=== PATIENT | female | born 1930 | race Caucasian/White ===

== ENCOUNTER 2016-12-19 16:10 | Inpatient (IN) | payer OTHER ==
[~2016-12-19] VITALS: Ht 165.1 cm; Wt 105.3 kg
[~2016-12-19 16:10] MED LIST: CHOL100010 PO; CMD5 PO; ERGO1CAP35 PO; FERR1TAB13 PO; FRS/40 PO; LISIPOW PO; MAGN400T6 PO; POTA20TA11 PO; RANI150T3 PO
[2016-12-19] MEDS ORDERED: CEFTRIAXONE SOD INJ 1 GM ADDVIAL IV STA (16:40)
--- NOTE | 2016-12-19 16:57 | EMERGENCY ROOM VISIT NOTE ---
ED Visit Note First contact with patient: 16:19 I have seen and examined this patient with Mehreen Horton and generally agree with the treatment plan. Current/Historical Medications Scheduled Cholecalciferol (Vitamin D), 5,000 INTER.UNIT PO DAILY Ergocalciferol (Vitamin D Cap), 1 TAB PO MONTHLY Ferrous Sulfate (Kp Ferrous Sulfate), 1 TAB PO BID Furosemide (Lasix), 40 MG PO QD Magnesium Oxide (Mag-Ox), 0.5 TAB PO QD Metoprolol Tartrate (Lopressor) (Lopressor), 25 MG PO BID Nitroglycerin (Nitrostat), 0.4 MG UT UD Potassium Chloride Microencaps (Potassium Chloride Cr), 1 TAB PO BID Ranitidine Hcl (Zantac), 1 TAB PO BID Warfarin Sod (Coumadin *), 2.5 MG PO QPM Warfarin Sod (Jantoven), 5 MG PO DIRECTED [Lisinopril], 1 TAB PO QAM Allergies Coded Allergies: White Fish (Verified Allergy, Intermediate, ALLERGIC TO FISH, 08/10/15) Anesthetics, Halogenated (Unverified Allergy, Unknown, UNKNOWN, 08/10/15) INDICATED IT ISNT ALL TYPES. IT IS SODIUM PHENYL Dust (Verified Allergy, Unknown, 08/10/15) Egg (Verified Allergy, Unknown, 08/10/15) Iodinated Contrast Media (Verified Allergy, Unknown, `, 08/10/15) Iodine (Verified Allergy, Unknown, 08/10/15) POLLEN (Verified Allergy, Unknown, 08/10/15) Sulfa Drugs (Verified Allergy, Unknown, BOILS, STYES, 08/10/15) Thiopental (Verified Allergy, Unknown, 08/10/15) Trimethoprim (Verified Allergy, Unknown, 08/10/15) Wheat (Verified Allergy, Unknown, 08/10/15) Vital Signs Date Time Temp Pulse Resp B/P (MAP) Pulse Ox O2 Delivery O2 Flow Rate FiO2 12/19/16 16:45 91 12/19/16 16:16 36.7 91 22 151/83 96 Room Air Laboratory Results Test 12/19/16 16:35 12/19/16 16:40 Departure Information Referrals Constantino Munoz M.D. (PCP) Patient Instructions My [facility]
--- NOTE | 2016-12-19 17:09 | DIAGNOSTIC IMAGING REPORT ---
SINGLE VIEW CHEST CLINICAL HISTORY: Fever. FINDINGS: An AP, portable, upright chest radiograph is compared to study dated 11/16/2009 and correlated with chest CT dated 05/03/2010. The examination is degraded by portable technique, large body habitus, motion artifact, and patient rotation. The heart is enlarged and there is atherosclerotic calcification of the thoracic aorta. The pulmonary vasculature is noncongested. A hiatal hernia is identified. Airspace opacities are seen at the left lung base. No large pleural effusion or pneumothorax is seen. The skeletal structures are osteopenic. The bony thorax is grossly intact. IMPRESSION: 1. Cardiomegaly without radiographic evidence of congestive failure. 2. Left basilar opacities are identified. This could represent atelectasis versus pneumonia/aspiration pneumonitis. Clinical correlation will be required. 3. Hiatal hernia. Electronically signed by: Wally Hawley M.D. 12/19/2016 5:08 PM Dictated Date/Time: 12/19/2016 5:02 PM
[2016-12-19] MEDS ORDERED: WARF5TAB7 PO (17:15)
[2016-12-19 17:28] LABS: BASO % 0.2 %; BASO ABS # 0.03 K/uL (0-0.2); COMPLETE YES; HEMATOCRIT 43.3 % (37-47); IG% 0.3 %; LYMPH ABS # 1.47 K/uL (1.2-3.4); MEAN CELL VOLUME 82.8 fL (80-100); MEAN CORPUSCULAR HEMOGLOBIN 26.6 pg (25-34); MEAN CORPUSCULAR HGB CONC 32.1 g/dl (32-36); MEAN PLATELET VOLUME 10.1 fL (7.4-10.4); MONO % 8.9 %; NEUT % 79.6 %; PLATELET COUNT 312 K/uL (130-400); RED BLOOD COUNT 5.23 M/uL (4.2-5.4); WHITE BLOOD COUNT 14.64 K/uL (4.8-10.8)
[2016-12-19 17:41] LABS: ALT/SGPT 15 U/L (12-78); BLOOD UREA NITROGEN 14 mg/dl (7-18); BUN/CREATININE RATIO 15.3 (10-20); CALCIUM 8.7 mg/dl (8.5-10.1); CARBON DIOXIDE 29 mmol/L (21-32); CHLORIDE 105 mmol/L (98-107); CREATININE 0.91 mg/dl (0.60-1.20); GLUCOSE 103 mg/dl (70-99); POTASSIUM 3.9 mmol/L (3.5-5.1); SODIUM 140 mmol/L (136-145)
[2016-12-19 17:44] LABS: PARTIAL THROMBOPLASTIN RATIO 2.5; PROTHROMBIN TIME (PATIENT) 77.5 SECONDS (9.0-12.0)
[2016-12-19] MEDS ORDERED: CHOLTAB9 PO (17:44)
[2016-12-19] MEDS ORDERED: ERGO500037 PO (17:44)
[2016-12-19 17:46] LABS: ALB/GLOB RATIO 0.5 (0.9-2); ALKALINE PHOSPHATASE 87 U/L (45-117); AST/SGOT 12 U/L (15-37); INR 6.7 (0.9-1.1)
[2016-12-19] MEDS ORDERED: LSN5 (17:56)
[2016-12-19] MEDS ORDERED: CMD5 PO (17:56)
--- NOTE | 2016-12-19 18:34 | DIAGNOSTIC IMAGING REPORT ---
BILATERAL LOWER EXTREMITY VENOUS DOPPLER HISTORY: leg swelling, ? DVT COMPARISON STUDY: Venous Doppler 05/04/2010 FINDINGS: There is normal compressibility, flow, and augmentation within the bilateral lower extremity deep venous systems. IMPRESSION: No DVT within the right or left lower extremity. Electronically signed by: Scooby Stevenson M.D. 12/19/2016 6:33 PM Dictated Date/Time: 12/19/2016 6:33 PM
[2016-12-19] MEDS ORDERED: NTRGSL/4 UT (19:32)
[2016-12-19] MEDS ORDERED: METO50TA16 PO (19:32)
[2016-12-19 20:00] VITALS: BP 125/82; PULSE 125; TEMP 37.5; O2SAT 96; Ht 165.1 cm; Wt 105.3 kg
--- NOTE | 2016-12-19 20:03 | EMERGENCY ROOM VISIT NOTE ---
History First contact with patient: 16:19 Chief Complaint: IRREGULAR HEARTBEAT Stated Complaint: A-FIB, LEGS WEAK- PHYSICIAN REFERRED Nursing Triage Summary: Pt states she was sent by her PCP because of her legs, seeping and smell awful. History of Present Illness The patient is a 86 year old female who presents to the Emergency Room with complaints of increasing left lower leg pain and drainage and smell over the past few days who has a history of recurrent cellulitis with chronic venous stasis with ulcers to the lower legs. Patient states she follows at the lymphedema clinic. She finished Cipro 2 weeks ago. The home health nurse change the dressing on Sunday and states there was no real infection the. She has appointment in a week with Dr. Manley from wound care clinic. Patient saw the family care DrAnel for routine follow-up and was advised to go the ER. Patient is on Coumadin for chronic A. fib and blood clots. Patient states her INR last week was 2.2. Patient denies chest pain, abdominal pain, cough, congestion, vomiting, diarrhea. Patient states she feels feverish and fatigued. Review of Systems See HPI for pertinent positives & negatives. A total of 10 systems reviewed and were otherwise negative. Past Medical/Surgical History Medical Problems: (1) Atrial fibrillation (2) Cellulitis (3) GERD (gastroesophageal reflux disease) (4) Hypertension Social History Smoking Status: Never Smoker Drug Use: none Marital Status: Occupation Status: retired Current/Historical Medications Scheduled Cholecalciferol (D3-1000), 1,000 INTUNIT PO DAILY Ergocalciferol (Vitamin D 65108 Unit), 50,000 UNIT PO MONTHLY Ferrous Sulfate (Kp Ferrous Sulfate), 325 MG PO DAILY Furosemide (Lasix), 40 MG PO QD Magnesium Oxide (Mag-Ox), 400 TAB PO QD Metoprolol Tartrate (Lopressor) (Lopressor), 25 MG PO BID Nitroglycerin (Nitrostat), 0.4 MG UT UD Potassium Chloride Microencaps (Potassium Chloride Cr), 20 MEQ PO DAILY Ranitidine Hcl (Zantac), 150 MG PO DAILY Warfarin Sod (Jantoven), 5 MG PO DIRECTED Warfarin Sod (Coumadin), 2.5 MG PO 4XWK Miscellaneous Medications Lisinopril (Lisinopril), Unknown Dose Physical Exam Vital Signs Date Time Temp Pulse Resp B/P (MAP) Pulse Ox O2 Delivery O2 Flow Rate FiO2 12/19/16 18:47 115 18 141/88 98 Room Air 12/19/16 17:44 99 18 177/88 95 Room Air 12/19/16 17:08 95 Room Air 12/19/16 16:45 91 12/19/16 16:25 95 Room Air 12/19/16 16:16 36.7 91 22 151/83 96 Room Air Physical Exam VITALS: Vitals are noted on the nurse's note and reviewed by myself. Vital signs stable. GENERAL: White female, in no acute distress, nondiaphoretic, well-developed well -nourished. SKIN: Candidiasis underneath the breast and in the groin. Left lower leg from the calf on down to the foot erythematous and edematous malodorous concerning for cellulitis with erythema on the medial aspect of the left thigh . Right lower leg slightly erythematous and malodorous. Pedal pulses +2 equal present bilaterally. The skin was without bruising. There is no tenting of the skin. Capillary reflex less than 2 seconds. HEAD: Normocephalic atraumatic. EARS: External auditory canals clear, tympanic membranes pearly zhu without erythema or effusion bilaterally. EYES: Pupils equal round and reactive to light and accommodation. Conjunctivae without injection, sclerae without icterus. Extraocular movements intact. NOSE: Patent, turbinates without inflammation or discharge. MOUTH: Mucous membranes moist. Pharynx without erythema or exudate. Uvula midline. Airway patent. Tongue does not deviate. NECK: Supple without nuchal rigidity. No lymphadenopathy. No thyromegaly. Cervical spine is nontender. No JVD. HEART: Irregularly irregular. LUNGS: Clear to auscultation bilaterally without wheezes, rales or rhonchi. No dullness to percussion. No retractions or accessory muscle use. ABDOMEN: Positive bowel sounds x 4. Normal tympanic percussion. Soft, protuberant, obese, nontender, without masses or organomegaly. Diaz sign negative. No guarding or rebound tenderness. MUSCULOSKELETAL: No muscle atrophy noted. Left lower leg from the calf on down to the foot erythematous and edematous malodorous concerning for cellulitis with erythema on the medial aspect of the left thigh . Right lower leg slightly erythematous and malodorous. Pedal pulses +2 equal present bilaterally. NEURO: Patient was alert and oriented to person place and time. Normal sensation to light and sharp touch. No focal neurological deficits. Medical Decision & Procedures Laboratory Results 12/19/16 16:56 Red Blood Count 5.23, Mean Corpuscular Volume 82.8, Mean Corpuscular Hemoglobin 26.6, Mean Corpuscular Hemoglobin Concent 32.1, Mean Platelet Volume 10.1, Neutrophils (%) (Auto) 79.6, Lymphocytes (%) (Auto) 10.0, Monocytes (%) (Auto) 8.9, Eosinophils (%) (Auto) 1.0, Basophils (%) (Auto) 0.2, Neutrophils # (Auto) 11.65, Lymphocytes # (Auto) 1.47, Monocytes # (Auto) 1.30, Eosinophils # (Auto) 0.14, Basophils # (Auto) 0.03 12/19/16 16:56 Test 12/19/16 16:56 12/19/16 17:13 White Blood Count 14.64 K/uL (4.8-10.8) Red Blood Count 5.23 M/uL (4.2-5.4) Hemoglobin 13.9 g/dL (12.0-16.0) Hematocrit 43.3 % (37-47) Mean Corpuscular Volume 82.8 fL (80-100) Mean Corpuscular Hemoglobin 26.6 pg (25-34) Mean Corpuscular Hemoglobin Concent 32.1 g/dl (32-36) Platelet Count 312 K/uL (130-400) Mean Platelet Volume 10.1 fL (7.4-10.4) Neutrophils (%) (Auto) 79.6 % Lymphocytes (%) (Auto) 10.0 % Monocytes (%) (Auto) 8.9 % Eosinophils (%) (Auto) 1.0 % Basophils (%) (Auto) 0.2 % Neutrophils # (Auto) 11.65 K/uL (1.4-6.5) Lymphocytes # (Auto) 1.47 K/uL (1.2-3.4) Monocytes # (Auto) 1.30 K/uL (0.11-0.59) Eosinophils # (Auto) 0.14 K/uL (0-0.5) Basophils # (Auto) 0.03 K/uL (0-0.2) RDW Standard Deviation 46.9 fL (36.4-46.3) RDW Coefficient of Variation 15.4 % (11.5-14.5) Immature Granulocyte % (Auto) 0.3 % Immature Granulocyte # (Auto) 0.05 K/uL (0.00-0.02) Prothrombin Time 77.5 SECONDS (9.0-12.0) Prothromb Time International Ratio 6.7 (0.9-1.1) Activated Partial Thromboplast Time 65.5 SECONDS (21.0-31.0) Partial Thromboplastin Ratio 2.5 Anion Gap 6.0 mmol/L (3-11) Est Creatinine Clear Calc Drug Dose 52.8 ml/min Estimated GFR () 65.3 Estimated GFR (Non- 56.3 BUN/Creatinine Ratio 15.3 (10-20) Calcium Level 8.7 mg/dl (8.5-10.1) Total Bilirubin 0.3 mg/dl (0.2-1) Aspartate Amino Transf (AST/SGOT) 12 U/L (15-37) Alanine Aminotransferase (ALT/SGPT) 15 U/L (12-78) Alkaline Phosphatase 87 U/L (45-117) Troponin I < 0.015 ng/ml (0-0.045) Total Protein 7.6 gm/dl (6.4-8.2) Albumin 2.6 gm/dl (3.4-5.0) Globulin 5.0 gm/dl (2.5-4.0) Albumin/Globulin Ratio 0.5 (0.9-2) Bedside Lactic Acid Venous 1.07 mmol/L (0.90-1.70) Medications Administered Medications (Trade) Dose Ordered Sig/Ariela Route Start Time Stop Time Status Last Admin Dose Admin Ceftriaxone Sodium (Rocephin Inj) 1 gm NOW STAT IV 12/19/16 16:40 12/19/16 16:41 DC 12/19/16 17:18 1 GM ED Course Prior records reviewed and summarized as above. Triage Nursing notes reviewed. Additional history obtained from family The patient's history was concerning for swelling and redness of the skin. Differential diagnosis: Etiologies such as cellulitis, abscess, MRSA infection, DVT, necrotizing fasciitis, dermatitis, drug eruption, as well as others were entertained.. Physical examination: The physical examination was consistent with cellulitis ER treatment provided: Rocephin On reassessment the patient felt better. Diagnostics interpreted by me: The labs revealed supratherapeutic INR. Leukocytosis. Negative lactic acid Imaging studies: Ultrasound negative for DVT SINGLE VIEW CHEST CLINICAL HISTORY: Fever. FINDINGS: An AP, portable, upright chest radiograph is compared to study dated 11/16/2009 and correlated with chest CT dated 05/03/2010. The examination is degraded by portable technique, large body habitus, motion artifact, and patient rotation. The heart is enlarged and there is atherosclerotic calcification of the thoracic aorta. The pulmonary vasculature is noncongested. A hiatal hernia is identified. Airspace opacities are seen at the left lung base. No large pleural effusion or pneumothorax is seen. The skeletal structures are osteopenic. The bony thorax is grossly intact. IMPRESSION: 1. Cardiomegaly without radiographic evidence of congestive failure. 2. Left basilar opacities are identified. This could represent atelectasis versus pneumonia/aspiration pneumonitis. Clinical correlation will be required. 3. Hiatal hernia. Electronically signed by: Wally Hawley M.D. Consultation: A consultation was placed with the [facility] hospitalist. The case was discussed and diagnostics were reviewed. The patient was evaluated in the ER for further treatment. This appears to be cellulitis and supratherapeutic INR. Patient was not coughing and had no respiratory complaints. I believe the chest x-ray is more likely to be atelectasis. Patient's skin culture from last week was reviewed and is sensitive to cephalosporins. Patient will be evaluated by medicine for admission. Patient extensive cellulitis to the left lower leg. No DVT. By the evaluation outlined above emergent etiologies such as abscess, necrotizing fasciitis, DVT, as well as others were deemed relatively unlikely. The pt informed about the findings as listed above. All questions were answered and pleased with the treatment. Case reviewed with my attending Medical Decision As above Medication Reconcilliation Current Medication List: was personally reviewed by me Blood Pressure Screening Patient's blood pressure: Elevated blood pressure Blood pressure disposition: Referred to PCP Impression Primary Impression: Left leg cellulitis Additional Impression: Supratherapeutic INR Departure Information Dispostion Being Evaluated By Hospitalist Condition FAIR Referrals Constantino Munoz M.D. (PCP) Patient Instructions My [facility] Problem Qualifiers
[2016-12-19] MEDS ORDERED: POLYETHYLENE (MIRALAX) 17 GM PACK PO PRN (20:15)
[2016-12-19] MEDS ORDERED: ONDANSETRON INJ 2 MG/ML 2 ML VIAL IV PRN (20:15)
[2016-12-19] MEDS ORDERED: METO-478 PO (20:25)
[2016-12-19] MEDS ORDERED: LISI-461 PO (20:25)
[2016-12-19] MEDS ORDERED: NITROGLYCERIN 0.4 MG SL PER TAB CHARGE UT PRN (20:30)
[2016-12-19] MEDS: METOPROLOL SUCC 25MG EXT REL TAB PO SCH (23:14)
[2016-12-19] MEDS ORDERED: MICONAZOLE NITRATE POWDER 43 GM EXT ONE (23:57)
[2016-12-19] MEDS ORDERED: NYSTATIN POWDER 15GM BTL EXT ONE (23:58)
--- NOTE | 2016-12-19 23:58 | History and Physical ---
History & Physical Date & Time of Service: Dec 19, 2016 at 20:27 Chief Complaint: A-Fib, Legs Weak- Physician Referred Primary Care Physician: Constantino Munoz M.D. History of Present Illness Source: patient, family, clinic records, hospital records 86 yo F presents with worsening leg pain L>R with worsening drainage over the past few days. She reports being on Cipro 2 weeks ago out of concern for a superimposed wound infection at that time, but there has been no improvement. The patient also reports a vaginal yeast infection with worsening yeast in her axillae, under her breasts and in her groin area. She has a h/o recurrent cellulitis with chronic venous stasis ulcers to the lower legs and she follows at the lymphedema clinica for regular treatment. She was found to have a supratherapeutic INR of 6 on arrival to the ER. She states that as a result of her yeast infection she took OTC Monistat intravaginal suppositories for 3 days and then took diflucan x 1 dose when that didn't work. She still has some vaginal itching symptoms but this has improved. She also noted some gross hematuria when on the Monistat, which has since reportedly resolved. She is on coumadin for chronic atrial fibrillation and she reports noncompliance with her Metoprolol because she forgets. She denies chest pain, abdominal pain, cough, congestion, vomiting, diarrhea. She does report some fevers and chills as well as fatigue. 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 (3) GERD (gastroesophageal reflux disease) Status: Chronic (4) Heart failure, diastolic Status: Chronic (5) HTN (hypertension) Status: Chronic (6) Hypertension Status: Chronic (7) Long-term (current) use of anticoagulants Status: Chronic (8) Osteoarthritis Status: Chronic (9) Urge incontinence Status: Chronic (10) Vitamin D deficiency Status: Chronic Surgical Problems: (1) S/P jo Status: Chronic (2) S/P tonsillectomy Status: Chronic Family History FH: Parkinson's disease MOTHER FH: cancer FATHER Social History Smoking Status: Never Smoker Smokeless Tobacco Use: No Alcohol Use: none Drug Use: none Marital Status: Housing status: lives with family (lives with her daughter) Occupational Status: retired Immunizations History of Influenza Vaccine: Yes Influenza Vaccine Date: Nov 24, 2011 History of Tetanus Vaccine?: Yes Tetanus Immunization Date: Jun 21, 2005 History of Pneumococcal: Yes Pneumococcal Date: Jan 14, 2015 History of Hepatitis B Vaccine: No Multi-Drug Resistant Organisms History of MDRO: No Allergies Coded Allergies: White Fish (Verified Allergy, Intermediate, ALLERGIC TO FISH, 12/19/16) Anesthetics, Halogenated (Unverified Allergy, Unknown, UNKNOWN, 12/19/16) INDICATED IT ISNT ALL TYPES. IT IS SODIUM PHENYL Dust (Verified Allergy, Unknown, 12/19/16) Egg (Verified Allergy, Unknown, 12/19/16) Iodinated Contrast Media (Verified Allergy, Unknown, `, 12/19/16) Iodine (Verified Allergy, Unknown, 12/19/16) POLLEN (Verified Allergy, Unknown, 12/19/16) Sulfa Drugs (Verified Allergy, Unknown, BOILS, STYES, 12/19/16) Thiopental (Verified Allergy, Unknown, 12/19/16) Trimethoprim (Verified Allergy, Unknown, 12/19/16) Wheat (Verified Allergy, Unknown, 12/19/16) Yogurt (Unverified Allergy, Unknown, diarrhea, 12/19/16) Home Medications Scheduled Cholecalciferol (D3-1000), 1,000 INTUNIT PO DAILY Ergocalciferol (Vitamin D 25386 Unit), 50,000 UNIT PO MONTHLY Ferrous Sulfate (Kp Ferrous Sulfate), 325 MG PO DAILY Lisinopril (Zestril), 10 MG PO DAILY Magnesium Oxide (Mag-Ox), 400 TAB PO QD Metoprolol Succinate (Toprol Xl), 1 TAB PO BID Nitroglycerin (Nitrostat), 0.4 MG UT UD Ranitidine Hcl (Zantac), 150 MG PO DAILY Warfarin Sod (Jantoven), 5 MG PO DIRECTED Warfarin Sod (Coumadin), 2.5 MG PO 4XWK Scheduled PRN Furosemide (Lasix), 40 MG PO DAILY PRN for LE swelling Potassium Chloride Microencaps (Potassium Chloride Cr), 20 MEQ PO DAILY PRN for Lasix use Review of Systems At least ten systems were reviewed and negative except as indicated in HPI. Physical Exam Vital Signs Date Time Temp Pulse Resp B/P (MAP) Pulse Ox O2 Delivery O2 Flow Rate FiO2 12/19/16 18:47 115 18 141/88 98 Room Air 12/19/16 17:44 99 18 177/88 95 Room Air 12/19/16 17:08 95 Room Air 12/19/16 16:45 91 12/19/16 16:25 95 Room Air 12/19/16 16:16 36.7 91 22 151/83 96 Room Air General Appearance: no apparent distress, + obese Head: normocephalic, atraumatic Eyes: PERRL, sclerae normal ENT: hearing grossly normal, pharynx normal Neck: supple, no adenopathy, no JVD, trachea midline Respiratory/Chest: lungs clear, normal breath sounds, no respiratory distress, no accessory muscle use Cardiovascular: no gallop, no JVD, no murmur, normal peripheral pulses, + irregularly irregular Abdomen/GI: normal bowel sounds, non tender, soft, + pertinent finding (rash under breasts L>R) Genitourinary - Female: + pertinent finding (erythema in intertriginous areas with malodor) Back: normal inspection, normal range of motion Extremities/Musculoskelatal: + pedal edema, + pertinent finding (2+ pitting edema, LLE abrasion with significant non-purulent drainage. ) Neurologic/Psych: no motor/sensory deficits, alert, normal mood/affect, oriented x 3 Skin: + pertinent finding (wounds/rashes as above. ) Diagnostics Laboratory Results 12/19/16 16:56 Red Blood Count 5.23, Mean Corpuscular Volume 82.8, Mean Corpuscular Hemoglobin 26.6, Mean Corpuscular Hemoglobin Concent 32.1, Mean Platelet Volume 10.1, Neutrophils (%) (Auto) 79.6, Lymphocytes (%) (Auto) 10.0, Monocytes (%) (Auto) 8.9, Eosinophils (%) (Auto) 1.0, Basophils (%) (Auto) 0.2, Neutrophils # (Auto) 11.65, Lymphocytes # (Auto) 1.47, Monocytes # (Auto) 1.30, Eosinophils # (Auto) 0.14, Basophils # (Auto) 0.03 12/19/16 16:56 Test 12/19/16 16:56 12/19/16 17:13 White Blood Count 14.64 K/uL (4.8-10.8) Red Blood Count 5.23 M/uL (4.2-5.4) Hemoglobin 13.9 g/dL (12.0-16.0) Hematocrit 43.3 % (37-47) Mean Corpuscular Volume 82.8 fL (80-100) Mean Corpuscular Hemoglobin 26.6 pg (25-34) Mean Corpuscular Hemoglobin Concent 32.1 g/dl (32-36) Platelet Count 312 K/uL (130-400) Mean Platelet Volume 10.1 fL (7.4-10.4) Neutrophils (%) (Auto) 79.6 % Lymphocytes (%) (Auto) 10.0 % Monocytes (%) (Auto) 8.9 % Eosinophils (%) (Auto) 1.0 % Basophils (%) (Auto) 0.2 % Neutrophils # (Auto) 11.65 K/uL (1.4-6.5) Lymphocytes # (Auto) 1.47 K/uL (1.2-3.4) Monocytes # (Auto) 1.30 K/uL (0.11-0.59) Eosinophils # (Auto) 0.14 K/uL (0-0.5) Basophils # (Auto) 0.03 K/uL (0-0.2) RDW Standard Deviation 46.9 fL (36.4-46.3) RDW Coefficient of Variation 15.4 % (11.5-14.5) Immature Granulocyte % (Auto) 0.3 % Immature Granulocyte # (Auto) 0.05 K/uL (0.00-0.02) Prothrombin Time 77.5 SECONDS (9.0-12.0) Prothromb Time International Ratio 6.7 (0.9-1.1) Activated Partial Thromboplast Time 65.5 SECONDS (21.0-31.0) Partial Thromboplastin Ratio 2.5 Anion Gap 6.0 mmol/L (3-11) Est Creatinine Clear Calc Drug Dose 52.8 ml/min Estimated GFR () 65.3 Estimated GFR (Non- 56.3 BUN/Creatinine Ratio 15.3 (10-20) Calcium Level 8.7 mg/dl (8.5-10.1) Total Bilirubin 0.3 mg/dl (0.2-1) Aspartate Amino Transf (AST/SGOT) 12 U/L (15-37) Alanine Aminotransferase (ALT/SGPT) 15 U/L (12-78) Alkaline Phosphatase 87 U/L (45-117) Troponin I < 0.015 ng/ml (0-0.045) Total Protein 7.6 gm/dl (6.4-8.2) Albumin 2.6 gm/dl (3.4-5.0) Globulin 5.0 gm/dl (2.5-4.0) Albumin/Globulin Ratio 0.5 (0.9-2) Bedside Lactic Acid Venous 1.07 mmol/L (0.90-1.70) Date/Time Source Procedure Growth Status 12/19/16 17:05 Blood Blood Culture Pending Received 12/19/16 16:37 Drainage - Surface Leg Lower Left Gram Stain Pending Received 12/19/16 16:37 Drainage - Surface Leg Lower Left Wound Culture Pending Received Results Past 24 Hours Test 12/19/16 16:56 12/19/16 17:13 Range/Units White Blood Count 14.64 4.8-10.8 K/uL Red Blood Count 5.23 4.2-5.4 M/uL Hemoglobin 13.9 12.0-16.0 g/dL Hematocrit 43.3 37-47 % Mean Corpuscular Volume 82.8 80-100 fL Mean Corpuscular Hemoglobin 26.6 25-34 pg Mean Corpuscular Hemoglobin Concent 32.1 32-36 g/dl Platelet Count 312 130-400 K/uL Mean Platelet Volume 10.1 7.4-10.4 fL Neutrophils (%) (Auto) 79.6 % Lymphocytes (%) (Auto) 10.0 % Monocytes (%) (Auto) 8.9 % Eosinophils (%) (Auto) 1.0 % Basophils (%) (Auto) 0.2 % Neutrophils # (Auto) 11.65 1.4-6.5 K/uL Lymphocytes # (Auto) 1.47 1.2-3.4 K/uL Monocytes # (Auto) 1.30 0.11-0.59 K/uL Eosinophils # (Auto) 0.14 0-0.5 K/uL Basophils # (Auto) 0.03 0-0.2 K/uL RDW Standard Deviation 46.9 36.4-46.3 fL RDW Coefficient of Variation 15.4 11.5-14.5 % Immature Granulocyte % (Auto) 0.3 % Immature Granulocyte # (Auto) 0.05 0.00-0.02 K/uL Prothrombin Time 77.5 9.0-12.0 SECONDS Prothromb Time International Ratio 6.7 0.9-1.1 Activated Partial Thromboplast Time 65.5 21.0-31.0 SECONDS Partial Thromboplastin Ratio 2.5 Sodium Level 140 136-145 mmol/L Potassium Level 3.9 3.5-5.1 mmol/L Chloride Level 105 98-107 mmol/L Carbon Dioxide Level 29 21-32 mmol/L Anion Gap 6.0 3-11 mmol/L Blood Urea Nitrogen 14 7-18 mg/dl Creatinine 0.91 0.60-1.20 mg/dl Est Creatinine Clear Calc Drug Dose 52.8 ml/min Estimated GFR () 65.3 Estimated GFR (Non- 56.3 BUN/Creatinine Ratio 15.3 10-20 Random Glucose 103 70-99 mg/dl Calcium Level 8.7 8.5-10.1 mg/dl Total Bilirubin 0.3 0.2-1 mg/dl Aspartate Amino Transf (AST/SGOT) 12 15-37 U/L Alanine Aminotransferase (ALT/SGPT) 15 12-78 U/L Alkaline Phosphatase 87 45-117 U/L Troponin I < 0.015 0-0.045 ng/ml Total Protein 7.6 6.4-8.2 gm/dl Albumin 2.6 3.4-5.0 gm/dl Globulin 5.0 2.5-4.0 gm/dl Albumin/Globulin Ratio 0.5 0.9-2 Bedside Lactic Acid Venous 1.07 0.90-1.70 mmol/L Microbiology Results 12/19/16 Blood Culture, Received Pending 12/19/16 Blood Culture, Received Pending 12/19/16 Gram Stain, Received Pending 12/19/16 Wound Culture, Received Pending Diagnostic Radiology SINGLE VIEW CHEST CLINICAL HISTORY: Fever. FINDINGS: An AP, portable, upright chest radiograph is compared to study dated 11/16/2009 and correlated with chest CT dated 05/03/2010. The examination is degraded by portable technique, large body habitus, motion artifact, and patient rotation. The heart is enlarged and there is atherosclerotic calcification of the thoracic aorta. The pulmonary vasculature is noncongested. A hiatal hernia is identified. Airspace opacities are seen at the left lung base. No large pleural effusion or pneumothorax is seen. The skeletal structures are osteopenic. The bony thorax is grossly intact. IMPRESSION: 1. Cardiomegaly without radiographic evidence of congestive failure. 2. Left basilar opacities are identified. This could represent atelectasis versus pneumonia/aspiration pneumonitis. Clinical correlation will be required. 3. Hiatal hernia. BILATERAL LOWER EXTREMITY VENOUS DOPPLER HISTORY: leg swelling, ? DVT COMPARISON STUDY: Venous Doppler 05/04/2010 FINDINGS: There is normal compressibility, flow, and augmentation within the bilateral lower extremity deep venous systems. IMPRESSION: No DVT within the right or left lower extremity. EKG afib 96 Impression Assessment and Plan 86 yo F with chronic lymphedema and recurrent cellulitis presents with bilateral LE cellulitis despite outpatient PO abx 1. Bilateral LE cellulitis-recent wound culture grew MSSA that was pansensitive. Continuing Rocephin started in ER with multiple allergies. With lymphatic destruction and recurrent nature of this issue, will consult ID for assistance. Wound care also consulted. She has multiple areas of possible ingris in her skin folds. Will order some Nystatin powder for this. Cont with Ceftriaxone. Not septic, blood cultures are pending. 2. Atrial fibrillation-chronic, supratherapeutic INR likely 2/2 Monistat or Diflucan use in conjunction with coumadin. Hold coumadin for 2 days then restart after INR falls back into range. Cont metoprolol BID which she reports noncompliance with. 3. HTN-controlled with repeat readings on the floor. Cont lisinopril. 4. Vit D def-cont supplementation 5. Obesity 6. Chronic lymphedema-Lasix and potassium held. DVT proph-coumadin, INR supratheraeutic. Hold coumadin x 2 doses. Full Code as discussed with she and her daughter on admission. Dispo-Med/Surg Diandra Almanzar DO [facility] Level of Care Med/Surg Resuscitation Status FULL RESUSCITATION VTE Prophylaxis VTE Risk Assessment Done? Y/N: Yes Risk Level: Moderate Given or contraindicated: Enoxaparin (Lovenox)SQ
[2016-12-20 00:52] VITALS: BP 107/68; PULSE 81; TEMP 37.4; O2SAT 93
[2016-12-20 05:59] LABS: BASO % 0.2 %; BASO ABS # 0.03 K/uL (0-0.2); COMPLETE YES; EOS % 0.8 %; IG% 0.4 %; LYMPH % 9.7 %; LYMPH ABS # 1.35 K/uL (1.2-3.4); MEAN CELL VOLUME 82.3 fL (80-100); MEAN CORPUSCULAR HEMOGLOBIN 25.9 pg (25-34); MEAN CORPUSCULAR HGB CONC 31.5 g/dl (32-36); MEAN PLATELET VOLUME 9.5 fL (7.4-10.4); MONO % 10.8 %; NEUT % 78.1 %; PLATELET COUNT 251 K/uL (130-400); RED BLOOD COUNT 4.86 M/uL (4.2-5.4); WHITE BLOOD COUNT 13.91 K/uL (4.8-10.8)
[2016-12-20 06:20] LABS: PROTHROMBIN TIME (PATIENT) 66.6 SECONDS (9.0-12.0)
[2016-12-20 06:32] LABS: BUN/CREATININE RATIO 18.6 (10-20); CALCIUM 8.1 mg/dl (8.5-10.1); CREATININE 0.68 mg/dl (0.60-1.20)
[2016-12-20 06:42] LABS: INR 5.8 (0.9-1.1)
[2016-12-20 07:15] VITALS: BP 112/72; PULSE 98; TEMP 37.6; O2SAT 92
[2016-12-20] MEDS: MAGNESIUM OXIDE 400 MG TAB PO SCH (08:34)
[2016-12-20] MEDS: CHOLECALCIFEROL 1000 INTER.UNIT TAB PO SCH (08:34)
[2016-12-20] MEDS: LISINOPRIL 10 MG TAB PO SCH (08:34)
[2016-12-20] MEDS: METOPROLOL SUCC 25MG EXT REL TAB PO SCH ×2 (08:34→20:54)
[2016-12-20] MEDS: NYSTATIN POWDER 15GM BTL EXT SCH ×2 (08:34→20:53)
[2016-12-20] MEDS ORDERED: MICONAZOLE NITRATE POWDER 43 GM EXT SCH (09:00)
[2016-12-20] MEDS ORDERED: ENOXAPARIN 40 MG/0.4 ML SYR SQ SCH (09:00)
--- NOTE | 2016-12-20 11:24 | INFECT. DISEASE CONSULTATION ---
DATE OF CONSULTATION: 12/20/2016 REQUESTING PHYSICIAN: Dr. Celestin. HISTORY OF PRESENT ILLNESS: This is an 86-year-old female who was admitted from her primary care office. She has been followed at the lymphedema clinic for some time now due to lower extremity edema and stasis ulcers. She recently was referred to the wound care center and states she had her first visit there last week. She does have a followup visit scheduled for tomorrow. She recently was on a 10-day course of ciprofloxacin for lower extremity cellulitis by her primary care physician, which she completed 1-2 days prior to admission. Her only complaint with this antibiotic was that she also had vaginal yeast infection and has been using [id number] Monistat with a little relief. She has been having home care come to the house over the weekend for dressing changes as prescribed by the wound center last week. She has only had 1 home health visit prior to her admission. She states that she followed up with her primary care physician yesterday and the dressing was removed and there was significant drainage with foul odor and she was subsequently sent to the hospital for admission. She was placed on empiric antibiotics consisting of Rocephin. She did have a T-max of 37.6 yesterday. She denies any fevers prior to admission or today or overnight. She initially had a white blood cell count of 14.6 yesterday and this improved slightly to 13.9 today. She was also found to have supratherapeutic INR, which is likely related to her recent treatment with Cipro. Blood cultures were obtained and are pending. A wound culture was done yesterday in the ER and shows moderate gram positive cocci on Gram stain. She did have Dopplers, which were negative for DVT. Her chest x-ray was unremarkable. She currently is complaining of pain in the left ankle. She does not have significant pain in the right ankle. She denies any fevers or chills. She denies any cough, shortness of breath, chest pain, nausea, vomiting or diarrhea. She states she is concerned of being on antibiotics and she is concerned about developing C. difficile. She states that she is also concerned that she has had many doctor's visit with copays and feels that she does not require as much medical care as she is receiving secondary to cost of all of her physician visits. PAST MEDICAL HISTORY: Significant for AFib on Coumadin, DVT of the upper extremity, GERD, heart failure, hypertension, osteoarthritis, and vitamin D deficiency. PAST SURGICAL HISTORY: Significant for cholecystectomy and tonsillectomy. FAMILY HISTORY: Noncontributory. SOCIAL HISTORY: Negative for alcohol use, tobacco use or drug use. She lives with her family. She has no sick contacts. ALLERGIES: SHE HAS MULTIPLE ALLERGIES INCLUDING IODINE AND SULFA DRUGS. CURRENT MEDICATIONS: Include vitamin D, Rocephin, lisinopril, magnesium, nystatin, Toprol-XL, Tylenol, and MiraLax. PHYSICAL EXAMINATION: VITAL SIGNS: She has a current temperature of 37.6. This is also her T-max. Respiratory rate is 18, pulse is 98, blood pressure is 112/72, and oxygen saturation is 92%-98% on room air. GENERAL: She is awake, alert and oriented x3 on my examination. She is in no acute distress. HEENT: Mucous membranes are dry. Extraocular muscles are intact. HEART: Without murmur. LUNGS: Clear bilaterally. ABDOMEN: Soft and nondistended. EXTREMITIES: There is significant lower extremity edema and findings consistent with lymphedema. There is no erythema or warmth on the right lower extremity. Examination of the left leg does reveal a large superficial ulceration over the medial and anterior portion of the ankle. There is weeping and foul smelling drainage associated with this. This is warm and tender to palpation. LABORATORY STUDIES: CBC today reveals a white blood cell count of 13.9, hemoglobin 12.6, and platelets are 251. Chemistry panel reveals a sodium of 140, potassium 4.0, chloride 107, bicarbonate 26, BUN 13, creatinine 0.6, and glucose is 115. LFTs are within normal limits on admission. Again, December 19, surface culture is now showing staph species and probable pseudomonas species of normal skin guy. Sensitivities are pending. Blood cultures are negative to date. Doppler findings are as above. Chest x-ray was done in the ER, which shows atelectasis bilaterally. ASSESSMENT AND PLAN: Left lower extremity cellulitis with wound infection, polymicrobial. She will be placed on empiric intravenous antibiotics pending the results of her wound culture. Blood cultures are pending and these will be followed as well. She will likely need continued antibiotic therapy as an outpatient along with the wound center visits. She was informed that she can follow with infectious diseases along with the wound center once discharged from the hospital. She will be evaluated by wound care while in the hospital as well. We will follow along with you. Thank you for this consultation. ALMA
--- NOTE | 2016-12-20 11:40 | Progress Note ---
Progress Note Date of Service Dec 20, 2016. Progress Note ID Consult Dictated #[id number] A/P: 1.LLE cellulitis/infected stasis ulcer 2. Leukocytosis - improved -Will change abx to cefepime vanco pending final culture results -Will need continued wound care -Will follow, thank you
[2016-12-20] MEDS ORDERED: VANCOMYCIN CONSULT ACTIVE PRN (12:00)
[2016-12-20] MEDS ORDERED: VANCOMYCIN INJ 2,750 MG in SODIUM CHLORIDE 0.9% 500ML 500 ML IV ONE (13:00)
--- NOTE | 2016-12-20 13:33 | Pharmacy Progress Note ---
Pharmacy Antibiotic Consult Date of Service: Dec 20, 2016. Pharmacy Dosing Scope Pharmacy is consulted to initiate Vancomycin IV dosing therapy, order appropriate labs and adjust drug dose/frequency. Patient is also currently on Cefepime. Subjective The patient is a 86 year old female admitted on Dec 19, 2016 at 18:20. Objective Height (Feet): 5 Height (Inches): 5.00 Weight (Kilograms): 105.300 Lab Results (24hrs): Test 12/19/16 16:56 12/19/16 17:13 12/20/16 05:46 White Blood Count 14.64 K/uL (4.8-10.8) 13.91 K/uL (4.8-10.8) Red Blood Count 5.23 M/uL (4.2-5.4) 4.86 M/uL (4.2-5.4) Hemoglobin 13.9 g/dL (12.0-16.0) 12.6 g/dL (12.0-16.0) Hematocrit 43.3 % (37-47) 40.0 % (37-47) Mean Corpuscular Volume 82.8 fL (80-100) 82.3 fL (80-100) Mean Corpuscular Hemoglobin 26.6 pg (25-34) 25.9 pg (25-34) Mean Corpuscular Hemoglobin Concent 32.1 g/dl (32-36) 31.5 g/dl (32-36) Platelet Count 312 K/uL (130-400) 251 K/uL (130-400) Mean Platelet Volume 10.1 fL (7.4-10.4) 9.5 fL (7.4-10.4) Neutrophils (%) (Auto) 79.6 % 78.1 % Lymphocytes (%) (Auto) 10.0 % 9.7 % Monocytes (%) (Auto) 8.9 % 10.8 % Eosinophils (%) (Auto) 1.0 % 0.8 % Basophils (%) (Auto) 0.2 % 0.2 % Neutrophils # (Auto) 11.65 K/uL (1.4-6.5) 10.87 K/uL (1.4-6.5) Lymphocytes # (Auto) 1.47 K/uL (1.2-3.4) 1.35 K/uL (1.2-3.4) Monocytes # (Auto) 1.30 K/uL (0.11-0.59) 1.50 K/uL (0.11-0.59) Eosinophils # (Auto) 0.14 K/uL (0-0.5) 0.11 K/uL (0-0.5) Basophils # (Auto) 0.03 K/uL (0-0.2) 0.03 K/uL (0-0.2) RDW Standard Deviation 46.9 fL (36.4-46.3) 46.0 fL (36.4-46.3) RDW Coefficient of Variation 15.4 % (11.5-14.5) 15.3 % (11.5-14.5) Immature Granulocyte % (Auto) 0.3 % 0.4 % Immature Granulocyte # (Auto) 0.05 K/uL (0.00-0.02) 0.05 K/uL (0.00-0.02) Prothrombin Time 77.5 SECONDS (9.0-12.0) 66.6 SECONDS (9.0-12.0) Prothromb Time International Ratio 6.7 (0.9-1.1) 5.8 (0.9-1.1) Activated Partial Thromboplast Time 65.5 SECONDS (21.0-31.0) Partial Thromboplastin Ratio 2.5 Sodium Level 140 mmol/L (136-145) 140 mmol/L (136-145) Potassium Level 3.9 mmol/L (3.5-5.1) 4.0 mmol/L (3.5-5.1) Chloride Level 105 mmol/L (98-107) 107 mmol/L (98-107) Carbon Dioxide Level 29 mmol/L (21-32) 26 mmol/L (21-32) Anion Gap 6.0 mmol/L (3-11) 7.0 mmol/L (3-11) Blood Urea Nitrogen 14 mg/dl (7-18) 13 mg/dl (7-18) Creatinine 0.91 mg/dl (0.60-1.20) 0.68 mg/dl (0.60-1.20) Est Creatinine Clear Calc Drug Dose 52.8 ml/min 71.9 ml/min Estimated GFR () 65.3 90.5 Estimated GFR (Non- 56.3 78.1 BUN/Creatinine Ratio 15.3 (10-20) 18.6 (10-20) Random Glucose 103 mg/dl (70-99) 115 mg/dl (70-99) Calcium Level 8.7 mg/dl (8.5-10.1) 8.1 mg/dl (8.5-10.1) Total Bilirubin 0.3 mg/dl (0.2-1) Aspartate Amino Transf (AST/SGOT) 12 U/L (15-37) Alanine Aminotransferase (ALT/SGPT) 15 U/L (12-78) Alkaline Phosphatase 87 U/L (45-117) Troponin I < 0.015 ng/ml (0-0.045) Total Protein 7.6 gm/dl (6.4-8.2) Albumin 2.6 gm/dl (3.4-5.0) Globulin 5.0 gm/dl (2.5-4.0) Albumin/Globulin Ratio 0.5 (0.9-2) Bedside Lactic Acid Venous 1.07 mmol/L (0.90-1.70) Assessment & Plan Assessment Pt is an 86 yo female with cellulitis of lower extremity. She recently completed a 10 day course of cipro from her primary care physician for the cellulitis. Last dose was 1-2 days prior to admission. Recent cultures reveal gram positive cocci and probable pseudomonas. She is ordered cefepime and vancomycin. Goal trough for vancomycin therapy in skin and soft tissue with possible MRSA 15-20 mcg/mL. She will receive a full loading dose. Given her obesity, maintenance dosing will be slightly less than traditional due to her potential to accumulate. Will order trough before the fourth maintenance dose. Plan * Vancomycin Loading dose: (26mg/kg) 2750mg IV X 1 dose then: (12mg/kg) 1250 mg IV every 12 hours. * Trough level has been ordered for: 12/22 @8334 Pharmacy will continue to follow and will adjust dose/frequency as necessary. Thank you
[2016-12-20] MEDS: ACETAMINOPHEN 325 MG TAB PO PRN (14:08)
[2016-12-20 15:06] VITALS: BP 134/74; PULSE 97; TEMP 37.1; O2SAT 93
[2016-12-20] MEDS ORDERED: CEFTRIAXONE SOD INJ 1 GM in DEXTROSE 5% ADD-VANTAGE 50ML 50 ML IV SCH (16:00)
[2016-12-20 18:33] LABS: URINE APPEARANCE TURBID (CLEAR); URINE BILIRUBIN NEG (NEG); URINE COLOR YELLOW; URINE EPITHELIAL CELL AUTO >30 /lpf (0-5); URINE NITRITE NEG (NEG); URINE PH 5.5 (4.5-7.5); UROBILINOGEN NEG (NEG); ZZURINE CULT IF INDIC CATH YES
[2016-12-20 18:37] LABS: MANUAL MICROSCOPIC REQUIRED? NO; REVIEW REQ? YES
[2016-12-20 19:16] LABS: URINE MUCUS PRESENT (NONE PRSENT)
[2016-12-20 20:00] VITALS: O2SAT 93
[2016-12-20] MEDS: CEFEPIME IV 1,000 MG in DEXTROSE 5% 100ML 100 ML IV SCH (20:53)
--- NOTE | 2016-12-20 22:54 | Progress Note ---
Medicine Progress Note Date & Time of Visit: Dec 20, 2016 at 19:00 . Subjective Admitted yesterday with lower extremity cellulitis. Legs still uncomfortable. Declined application of Silvadene ointment due to burning. No fever. No chest pain. No cough or SOB. No nausea or vomiting. Has Sanchez cath. . Objective Last 8 Hrs Date Time Temp Pulse Resp B/P (MAP) Pulse Ox O2 Delivery O2 Flow Rate FiO2 12/20/16 20:00 93 Room Air 12/20/16 15:43 Room Air 12/20/16 15:06 37.1 97 20 134/74 (94) 93 Room Air Physical Exam: General- no distress Neck- no JVD Lungs- clear to auscultation Heart- irregular Abdomen- + BS, soft, nontender Extremities- bilateral lymphedema; superficial ulcerations / weeping / erythema left lower extremity below knee; erythema RLE Neuro- alert . Laboratory Results: Last 24 Hours Test 12/20/16 05:46 12/20/16 16:06 White Blood Count 13.91 K/uL Red Blood Count 4.86 M/uL Hemoglobin 12.6 g/dL Hematocrit 40.0 % Mean Corpuscular Volume 82.3 fL Mean Corpuscular Hemoglobin 25.9 pg Mean Corpuscular Hemoglobin Concent 31.5 g/dl Platelet Count 251 K/uL Mean Platelet Volume 9.5 fL Neutrophils (%) (Auto) 78.1 % Lymphocytes (%) (Auto) 9.7 % Monocytes (%) (Auto) 10.8 % Eosinophils (%) (Auto) 0.8 % Basophils (%) (Auto) 0.2 % Neutrophils # (Auto) 10.87 K/uL Lymphocytes # (Auto) 1.35 K/uL Monocytes # (Auto) 1.50 K/uL Eosinophils # (Auto) 0.11 K/uL Basophils # (Auto) 0.03 K/uL RDW Standard Deviation 46.0 fL RDW Coefficient of Variation 15.3 % Immature Granulocyte % (Auto) 0.4 % Immature Granulocyte # (Auto) 0.05 K/uL Prothrombin Time 66.6 SECONDS Prothromb Time International Ratio 5.8 Sodium Level 140 mmol/L Potassium Level 4.0 mmol/L Chloride Level 107 mmol/L Carbon Dioxide Level 26 mmol/L Anion Gap 7.0 mmol/L Blood Urea Nitrogen 13 mg/dl Creatinine 0.68 mg/dl Est Creatinine Clear Calc Drug Dose 71.9 ml/min Estimated GFR () 90.5 Estimated GFR (Non- 78.1 BUN/Creatinine Ratio 18.6 Random Glucose 115 mg/dl Calcium Level 8.1 mg/dl Urine Color YELLOW Urine Appearance TURBID Urine pH 5.5 Urine Specific [place] 1.030 Urine Protein TRACE Urine Glucose (UA) NEG Urine Ketones NEG Urine Occult Blood 2+ Urine Nitrite NEG Urine Bilirubin NEG Urine Urobilinogen NEG Urine Leukocyte Esterase SMALL Urine WBC (Auto) 10-30 /hpf Urine RBC (Auto) 10-30 /hpf Urine Hyaline Casts (Auto) 0 /lpf Urine Epithelial Cells (Auto) >30 /lpf Urine Bacteria (Auto) NEG Urine Renal Epithelial Cells /lpf Urine Crystals See comments Urine Pathogenic Casts /lpf Urine Mucus PRESENT Urine Yeast (Auto) Date/Time Source Procedure Growth Status 12/20/16 16:06 Urine,Catheterized Urine Culture Pending Received Assessment & Plan CELLULITIS / VENOUS STASIS ULCERS LLE ID consulted. Preliminary wound culture growing Staph sp + Pseudomonas. Receiving IV vancomycin + cefepime. Local wound care as tolerated. CHRONIC ATRIAL FIBRILLATION Rate controlled on metoprolol. On warfarin with elevated INR- hold warfarin and resume when INR therapeutic. CHRONIC DIASTOLIC CHF History of chronic left ventricular diastolic heart failure. Compensated. Furosemide on hold. Follow exam, symptoms. HYPERTENSION Continue metoprolol and lisinopril. VTE PROPHYLAXIS On warfarin with elevated INR- hold warfarin and resume when INR therapeutic. Ambulate as able. DISPOSITION To be determined. Family Medicine follow-up with Dr. Munoz. Follow-up with [facility]. . Current Inpatient Medications: Current Inpatient Medications Medications (Trade) Dose Ordered Sig/Ariela Route Start Time Stop Time Status Last Admin Dose Admin Acetaminophen (Tylenol Tab) 650 mg Q4H PRN PO 12/19/16 20:15 01/18/17 20:14 12/20/16 14:08 650 MG Polyethylene (Miralax Powder Packet) 17 gm DAILY PRN PO 12/19/16 20:15 01/18/17 20:14 Ondansetron HCl (Zofran Inj) 4 mg Q6H PRN IV 12/19/16 20:15 01/18/17 20:14 Cholecalciferol (Vitamin D Tab) 1,000 inter.unit DAILY PO 10/25/17 09:00 01/19/17 08:59 12/20/16 08:34 1,000 INTER.UNIT Ergocalciferol (Vitamin D Cap) 50,000 interunit Q30D PO 12/27/16 09:00 01/26/17 08:59 Lisinopril (Zestril Tab) 10 mg DAILY PO 12/20/16 09:00 01/19/17 08:59 12/20/16 08:34 10 MG Magnesium Oxide (Mag-Ox Tab) 400 mg DAILY PO 12/20/16 09:00 01/19/17 08:59 12/20/16 08:34 400 MG Metoprolol Succinate (Toprol Xl Tab) 25 mg BID PO 12/19/16 21:00 01/18/17 20:59 12/20/16 20:54 25 MG Nitroglycerin (Nitrostat Tab) 0.4 mg UD PRN UT 12/19/16 20:30 01/18/17 20:29 Nystatin (Mycostatin Powder) 1 appln BID EXT 12/20/16 09:00 01/19/17 08:59 12/20/16 20:53 1 APPLN Vancomycin HCl 1250 mg/Sodium Chloride 275 ml @ 125 mls/hr Q12H IV 12/21/16 00:00 12/30/16 12:59 Future Hold Cefepime HCl 1000 mg/Dextrose 111.3 ml @ 200 mls/hr Q12 IV 12/20/16 21:00 12/30/16 20:59 12/20/16 20:53 200 MLS/HR Vancomycin HCl (Consult) 1 ea UD PRN N/A 12/20/16 12:00 01/19/17 11:59
[2016-12-20 23:14] VITALS: BP 121/73; PULSE 81; TEMP 37.4; O2SAT 95
[2016-12-21] MEDS ORDERED: VANCOMYCIN INJ 1,250 MG in SODIUM CHLORIDE 0.9% 250ML 250 ML IV SCH ×2
[2016-12-21 06:43] LABS: PROTHROMBIN TIME (PATIENT) 53.5 SECONDS (9.0-12.0)
[2016-12-21 06:44] LABS: INR 4.7 (0.9-1.1)
[2016-12-21 06:48] LABS: BUN/CREATININE RATIO 16.2 (10-20); CALCIUM 7.9 mg/dl (8.5-10.1); CREATININE 0.75 mg/dl (0.60-1.20); POTASSIUM 3.8 mmol/L (3.5-5.1)
[2016-12-21 07:16] VITALS: BP 119/72; PULSE 92; TEMP 37.2; O2SAT 94
[2016-12-21 07:31] LABS: HEMATOCRIT 36.9 % (37-47); MEAN CELL VOLUME 83.3 fL (80-100); MEAN CORPUSCULAR HEMOGLOBIN 27.1 pg (25-34); MEAN CORPUSCULAR HGB CONC 32.5 g/dl (32-36); MEAN PLATELET VOLUME 10.2 fL (7.4-10.4); PLATELET COUNT 233 K/uL (130-400); RED BLOOD COUNT 4.43 M/uL (4.2-5.4); WHITE BLOOD COUNT 10.55 K/uL (4.8-10.8)
[2016-12-21] MEDS: MAGNESIUM OXIDE 400 MG TAB PO SCH (08:14)
[2016-12-21] MEDS: METOPROLOL SUCC 25MG EXT REL TAB PO SCH ×2 (08:14→20:52)
[2016-12-21] MEDS: LISINOPRIL 10 MG TAB PO SCH (08:14)
[2016-12-21] MEDS: CHOLECALCIFEROL 1000 INTER.UNIT TAB PO SCH (08:14)
[2016-12-21] MEDS: NYSTATIN POWDER 15GM BTL EXT SCH ×2 (08:15→20:51)
[2016-12-21] MEDS: CEFEPIME IV 1,000 MG in DEXTROSE 5% 100ML 100 ML IV SCH (08:19)
[2016-12-21] MEDS: ACETAMINOPHEN 325 MG TAB PO PRN (08:19)
--- NOTE | 2016-12-21 10:38 | Progress Note ---
Subjective Date of Service: Dec 21, 2016. Subjective wound culture reviewed, pseudomonas and MSSA. blood cultures negative, afebrile. tolerating abx. 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 no overnight events Problem List Medical Problems: (1) Left leg cellulitis Status: Acute (2) Supratherapeutic INR Status: Acute Objective Vital Signs Date Time Temp Pulse Resp B/P (MAP) Pulse Ox O2 Delivery O2 Flow Rate FiO2 12/21/16 08:00 Room Air 12/21/16 07:16 37.2 92 20 119/72 (88) 94 Room Air 12/21/16 00:00 Room Air 12/20/16 23:14 37.4 81 16 121/73 (89) 95 Room Air 12/20/16 20:00 93 Room Air 12/20/16 15:43 Room Air 12/20/16 15:06 37.1 97 20 134/74 (94) 93 Room Air Laboratory Results Item Value Date Time Gram Stain - Final Complete 12/19/16 1637 Drainage - Surface Leg Lower Left Blood Culture - Preliminary Resulted 12/19/16 1705 Blood NO GROWTH TO DATE. Blood Culture - Preliminary Resulted 12/19/16 1656 Blood NO GROWTH TO DATE. Last 24 Hours Test 12/20/16 16:06 12/21/16 06:06 Urine Color YELLOW Urine Appearance TURBID Urine pH 5.5 Urine Specific [place] 1.030 Urine Protein TRACE Urine Glucose (UA) NEG Urine Ketones NEG Urine Occult Blood 2+ Urine Nitrite NEG Urine Bilirubin NEG Urine Urobilinogen NEG Urine Leukocyte Esterase SMALL Urine WBC (Auto) 10-30 /hpf Urine RBC (Auto) 10-30 /hpf Urine Hyaline Casts (Auto) 0 /lpf Urine Epithelial Cells (Auto) >30 /lpf Urine Bacteria (Auto) NEG Urine Renal Epithelial Cells /lpf Urine Crystals See comments Urine Pathogenic Casts /lpf Urine Mucus PRESENT Urine Yeast (Auto) White Blood Count 10.55 K/uL Red Blood Count 4.43 M/uL Hemoglobin 12.0 g/dL Hematocrit 36.9 % Mean Corpuscular Volume 83.3 fL Mean Corpuscular Hemoglobin 27.1 pg Mean Corpuscular Hemoglobin Concent 32.5 g/dl RDW Standard Deviation 47.1 fL RDW Coefficient of Variation 15.4 % Platelet Count 233 K/uL Mean Platelet Volume 10.2 fL Prothrombin Time 53.5 SECONDS Prothromb Time International Ratio 4.7 Sodium Level 141 mmol/L Potassium Level 3.8 mmol/L Chloride Level 108 mmol/L Carbon Dioxide Level 26 mmol/L Anion Gap 7.0 mmol/L Blood Urea Nitrogen 12 mg/dl Creatinine 0.75 mg/dl Est Creatinine Clear Calc Drug Dose 62.5 ml/min Estimated GFR () 82.5 Estimated GFR (Non- 71.2 BUN/Creatinine Ratio 16.2 Random Glucose 141 mg/dl Calcium Level 7.9 mg/dl Assessment and Plan (1) Cellulitis Assessment & Plan: will transition pt to po doxy and cipro. duration will likely be weeks. She will need continued wound care and outpatient follow up, can follow with ID in wound center post d/c as well. ok for d/c from ID standpoint when stable
[2016-12-21 15:29] VITALS: BP 113/72; PULSE 85; TEMP 36.7; O2SAT 96
[2016-12-21] MEDS: CIPROFLOXACIN 500 MG TAB PO SCH (20:51)
[2016-12-21] MEDS: DOXYCYCLINE HYCLATE 100 MG CAP PO SCH (20:52)
[2016-12-21 20:55] VITALS: BP 135/80; PULSE 97
--- NOTE | 2016-12-21 22:00 | Progress Note ---
Medicine Progress Note Date & Time of Visit: Dec 21, 2016 at 19:20 . Subjective Experiencing some lower extremity pain earlier, but not at time of my assessment. No fever. No chest pain. No cough or shortness of breath. No nausea or vomiting. No diarrhea. Still has Mahmood catheter. . Objective Last 8 Hrs Date Time Temp Pulse Resp B/P (MAP) Pulse Ox O2 Delivery O2 Flow Rate FiO2 12/21/16 20:55 97 135/80 (98) 12/21/16 16:00 Room Air 12/21/16 15:29 36.7 85 18 113/72 (86) 96 Room Air Physical Exam: General- no distress Neck- no JVD Lungs- clear to auscultation Heart- irregular Abdomen- + BS, soft, nontender Extremities- bilateral lymphedema; left leg bandaged Neuro- alert . Laboratory Results: Last 24 Hours Test 12/21/16 06:06 White Blood Count 10.55 K/uL Red Blood Count 4.43 M/uL Hemoglobin 12.0 g/dL Hematocrit 36.9 % Mean Corpuscular Volume 83.3 fL Mean Corpuscular Hemoglobin 27.1 pg Mean Corpuscular Hemoglobin Concent 32.5 g/dl RDW Standard Deviation 47.1 fL RDW Coefficient of Variation 15.4 % Platelet Count 233 K/uL Mean Platelet Volume 10.2 fL Prothrombin Time 53.5 SECONDS Prothromb Time International Ratio 4.7 Sodium Level 141 mmol/L Potassium Level 3.8 mmol/L Chloride Level 108 mmol/L Carbon Dioxide Level 26 mmol/L Anion Gap 7.0 mmol/L Blood Urea Nitrogen 12 mg/dl Creatinine 0.75 mg/dl Est Creatinine Clear Calc Drug Dose 62.5 ml/min Estimated GFR () 82.5 Estimated GFR (Non- 71.2 BUN/Creatinine Ratio 16.2 Random Glucose 141 mg/dl Calcium Level 7.9 mg/dl Assessment & Plan CELLULITIS / VENOUS STASIS ULCERS LLE ID consulted. Preliminary wound culture growing MSSA + Pseudomonas. Receiving IV vancomycin + cefepime. ID recommends transition to oral therapy with doxycycline and ciprofloxacin with anticipated long course of therapy Local wound care as tolerated. Follow-up with Wound Clinic. CHRONIC ATRIAL FIBRILLATION Rate controlled on metoprolol. On warfarin with elevated INR- hold warfarin and resume when INR therapeutic. INR today 4.7. Will need to monitor INR closely while receiving antibiotic therapy. CHRONIC DIASTOLIC CHF History of chronic left ventricular diastolic heart failure. Compensated. Follow exam, symptoms. Furosemide held; resume tomorrow. HYPERTENSION Continue metoprolol and lisinopril. 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 VTE PROPHYLAXIS On warfarin with elevated INR- hold warfarin and resume when INR therapeutic. Ambulate as able. DISPOSITION Anticipated discharge to home with Home Health Nursing. Case Management following. Family Medicine follow-up with Dr. Munoz. Follow-up with [facility]. . Current Inpatient Medications: Current Inpatient Medications Medications (Trade) Dose Ordered Sig/Ariela Route Start Time Stop Time Status Last Admin Dose Admin Acetaminophen (Tylenol Tab) 650 mg Q4H PRN PO 12/19/16 20:15 01/18/17 20:14 12/21/16 08:19 650 MG Polyethylene (Miralax Powder Packet) 17 gm DAILY PRN PO 12/19/16 20:15 01/18/17 20:14 Ondansetron HCl (Zofran Inj) 4 mg Q6H PRN IV 12/19/16 20:15 01/18/17 20:14 Cholecalciferol (Vitamin D Tab) 1,000 inter.unit DAILY PO 12/20/16 09:00 01/19/17 08:59 12/21/16 08:14 1,000 INTER.UNIT Ergocalciferol (Vitamin D Cap) 50,000 interunit Q30D PO 12/27/16 09:00 01/26/17 08:59 Lisinopril (Zestril Tab) 10 mg DAILY PO 12/20/16 09:00 01/19/17 08:59 12/21/16 08:14 10 MG Magnesium Oxide (Mag-Ox Tab) 400 mg DAILY PO 12/20/16 09:00 01/19/17 08:59 12/21/16 08:14 400 MG Metoprolol Succinate (Toprol Xl Tab) 25 mg BID PO 12/19/16 21:00 01/18/17 20:59 12/21/16 20:52 25 MG Nitroglycerin (Nitrostat Tab) 0.4 mg UD PRN UT 12/19/16 20:30 01/18/17 20:29 Nystatin (Mycostatin Powder) 1 appln BID EXT 12/20/16 09:00 01/19/17 08:59 12/21/16 20:51 1 APPLN Ciprofloxacin (Cipro Tab) 500 mg BID PO 12/21/16 21:00 12/31/16 20:59 12/21/16 20:51 500 MG Doxycycline Hyclate (Vibramycin Cap) 100 mg BID PO 12/21/16 21:00 12/31/16 20:59 12/21/16 20:52 100 MG
[2016-12-21 23:24] VITALS: BP 141/80; PULSE 98; TEMP 36.8; O2SAT 95
[2016-12-22 06:50] LABS: PROTHROMBIN TIME (PATIENT) 42.9 SECONDS (9.0-12.0)
[2016-12-22 06:52] LABS: BUN/CREATININE RATIO 16.3 (10-20); CALCIUM 8.2 mg/dl (8.5-10.1); CREATININE 0.73 mg/dl (0.60-1.20); POTASSIUM 4.2 mmol/L (3.5-5.1)
[2016-12-22 07:05] LABS: INR 3.8 (0.9-1.1)
[2016-12-22 07:14] VITALS: BP 108/74; PULSE 78; TEMP 36.7; O2SAT 94
[2016-12-22] MEDS: RANITIDINE HCL 150 MG TAB PO SCH (07:51)
[2016-12-22] MEDS: FUROSEMIDE 40 MG TAB PO SCH (07:51)
[2016-12-22] MEDS: POTASSIUM CHLORIDE 20 MEQ TABCR PO SCH (07:53)
[2016-12-22] MEDS: MAGNESIUM OXIDE 400 MG TAB PO SCH (07:53)
[2016-12-22] MEDS: DOXYCYCLINE HYCLATE 100 MG CAP PO SCH ×2 (07:54→20:06)
[2016-12-22] MEDS: METOPROLOL SUCC 25MG EXT REL TAB PO SCH ×2 (07:54→20:06)
[2016-12-22] MEDS: CHOLECALCIFEROL 1000 INTER.UNIT TAB PO SCH (07:54)
[2016-12-22] MEDS: CIPROFLOXACIN 500 MG TAB PO SCH ×2 (07:54→20:07)
[2016-12-22] MEDS: LISINOPRIL 10 MG TAB PO SCH (07:55)
[2016-12-22] MEDS: NYSTATIN POWDER 15GM BTL EXT SCH ×2 (07:55→20:07)
--- NOTE | 2016-12-22 10:18 | Progress Note ---
Subjective Date of Service: Dec 22, 2016. Subjective afebrile, tolerating abx. blood and urine cultures negative. wound culture final. No overnight events. Problem List Medical Problems: (1) Left leg cellulitis Status: Acute (2) Supratherapeutic INR Status: Acute Objective Vital Signs Date Time Temp Pulse Resp B/P (MAP) Pulse Ox O2 Delivery O2 Flow Rate FiO2 12/22/16 08:00 Room Air 12/22/16 07:14 36.7 78 16 108/74 (85) 94 Room Air 12/22/16 00:00 Room Air 12/21/16 23:24 36.8 98 18 141/80 (100) 95 Room Air 12/21/16 20:55 97 135/80 (98) 12/21/16 16:00 Room Air 12/21/16 15:29 36.7 85 18 113/72 (86) 96 Room Air Laboratory Results Item Value Date Time Gram Stain - Final Complete 12/19/16 1637 Drainage - Surface Leg Lower Left Blood Culture - Preliminary Resulted 12/19/16 1656 Blood NO GROWTH TO DATE. Blood Culture - Preliminary Resulted 12/19/16 1705 Blood NO GROWTH TO DATE. Urine Culture - Preliminary Resulted 12/20/16 1606 Urine,Catheterized NO GROWTH - LESS THAN 1,000 COLONIES/... Last 24 Hours Test 12/22/16 05:54 Prothrombin Time 42.9 SECONDS Prothromb Time International Ratio 3.8 Sodium Level 141 mmol/L Potassium Level 4.2 mmol/L Chloride Level 106 mmol/L Carbon Dioxide Level 30 mmol/L Anion Gap 5.0 mmol/L Blood Urea Nitrogen 12 mg/dl Creatinine 0.73 mg/dl Est Creatinine Clear Calc Drug Dose 64.2 ml/min Estimated GFR () 85.2 Estimated GFR (Non- 73.5 BUN/Creatinine Ratio 16.3 Random Glucose 95 mg/dl Calcium Level 8.2 mg/dl Assessment and Plan (1) Cellulitis Assessment & Plan: will transition pt to po doxy and cipro. duration will likely be weeks. She will need continued wound care and outpatient follow up, can follow with ID in wound center post d/c as well. ok for d/c from ID standpoint when stable
[2016-12-22] MEDS ORDERED: VANCOMYCIN TROUGH ONE (11:30)
[2016-12-22 15:25] VITALS: BP 115/75; PULSE 73; TEMP 37.1; O2SAT 94
--- NOTE | 2016-12-22 21:37 | Progress Note ---
Medicine Progress Note Date & Time of Visit: Dec 22, 2016 at 11:15 . Subjective No fever. Less leg pain. Some orthopnea last night. No SOB today. No chest pain. No nausea, vomiting, diarrhea. Mahmood removed this morning. . Objective Last 8 Hrs Date Time Temp Pulse Resp B/P (MAP) Pulse Ox O2 Delivery O2 Flow Rate FiO2 12/22/16 16:00 Room Air 12/22/16 15:25 37.1 73 18 115/75 (88) 94 Room Air Physical Exam: General- no distress Neck- no JVD Lungs- clear to auscultation Heart- irregular Abdomen- + BS, soft, nontender Extremities- bilateral lymphedema R > L, large superficial ulcer left lower leg / ankle improved with less surrounding erythema Neuro- alert . Laboratory Results: Last 24 Hours Test 12/22/16 05:54 Prothrombin Time 42.9 SECONDS Prothromb Time International Ratio 3.8 Sodium Level 141 mmol/L Potassium Level 4.2 mmol/L Chloride Level 106 mmol/L Carbon Dioxide Level 30 mmol/L Anion Gap 5.0 mmol/L Blood Urea Nitrogen 12 mg/dl Creatinine 0.73 mg/dl Est Creatinine Clear Calc Drug Dose 64.2 ml/min Estimated GFR () 85.2 Estimated GFR (Non- 73.5 BUN/Creatinine Ratio 16.3 Random Glucose 95 mg/dl Calcium Level 8.2 mg/dl Assessment & Plan CELLULITIS / VENOUS STASIS ULCERS LLE ID consulted. Preliminary wound culture growing MSSA + Pseudomonas. Received IV vancomycin + cefepime. ID recommended transition to oral therapy with doxycycline and ciprofloxacin with anticipated long course of therapy Local wound care as tolerated. Follow-up with Wound Clinic. CHRONIC ATRIAL FIBRILLATION Rate controlled on metoprolol. On warfarin with elevated INR- hold warfarin and resume when INR therapeutic. INR today 3.8. Will need to monitor INR closely while receiving antibiotic therapy. CHRONIC DIASTOLIC CHF History of chronic left ventricular diastolic heart failure. Compensated. Follow exam, symptoms. Furosemide held; resume tomorrow. HYPERTENSION Continue metoprolol and lisinopril. MAHMOOD CATHETER Removed. VTE PROPHYLAXIS On warfarin with elevated INR- hold warfarin and resume when INR therapeutic. Ambulate as able. DISPOSITION Daughter concerned that she cannot provide comprehensive / 24 hour care at home. Patient agrees to skilled care. Case Management making referral to [facility]. Family Medicine follow-up with Dr. Munoz. Follow-up with [facility]. . Current Inpatient Medications: Current Inpatient Medications Medications (Trade) Dose Ordered Sig/Ariela Route Start Time Stop Time Status Last Admin Dose Admin Acetaminophen (Tylenol Tab) 650 mg Q4H PRN PO 12/19/16 20:15 01/18/17 20:14 12/21/16 08:19 650 MG Polyethylene (Miralax Powder Packet) 17 gm DAILY PRN PO 12/19/16 20:15 01/18/17 20:14 Ondansetron HCl (Zofran Inj) 4 mg Q6H PRN IV 12/19/16 20:15 01/18/17 20:14 Cholecalciferol (Vitamin D Tab) 1,000 inter.unit DAILY PO 12/20/16 09:00 01/19/17 08:59 12/22/16 07:54 1,000 INTER.UNIT Ergocalciferol (Vitamin D Cap) 50,000 interunit Q30D PO 12/27/16 09:00 01/26/17 08:59 Lisinopril (Zestril Tab) 10 mg DAILY PO 12/20/16 09:00 01/19/17 08:59 12/22/16 07:55 10 MG Magnesium Oxide (Mag-Ox Tab) 400 mg DAILY PO 12/20/16 09:00 01/19/17 08:59 12/22/16 07:53 400 MG Metoprolol Succinate (Toprol Xl Tab) 25 mg BID PO 12/19/16 21:00 01/18/17 20:59 12/22/16 20:06 25 MG Nitroglycerin (Nitrostat Tab) 0.4 mg UD PRN UT 12/19/16 20:30 01/18/17 20:29 Nystatin (Mycostatin Powder) 1 appln BID EXT 12/20/16 09:00 01/19/17 08:59 12/22/16 20:07 1 APPLN Ciprofloxacin (Cipro Tab) 500 mg BID PO 12/21/16 21:00 12/31/16 20:59 12/22/16 20:07 500 MG Doxycycline Hyclate (Vibramycin Cap) 100 mg BID PO 12/21/16 21:00 12/31/16 20:59 12/22/16 20:06 100 MG Furosemide (Lasix Tab) 40 mg DAILY PO 12/22/16 09:00 01/21/17 08:59 12/22/16 07:51 40 MG Potassium Chloride (Klor-Con Tab) 20 meq DAILY PO 12/22/16 09:00 01/21/17 08:59 12/22/16 07:53 20 MEQ Ranitidine HCl (zANTac TAB) 150 mg DAILY PO 12/22/16 09:00 01/21/17 08:59 12/22/16 07:51 150 MG
[2016-12-23 00:20] VITALS: BP 119/77; PULSE 84; TEMP 36.7; O2SAT 95
[2016-12-23 06:42] LABS: INR 2.4 (0.9-1.1); PROTHROMBIN TIME (PATIENT) 26.1 SECONDS (9.0-12.0)
[2016-12-23 07:19] VITALS: BP 117/76; PULSE 91; TEMP 36.4; O2SAT 96
[2016-12-23] MEDS: RANITIDINE HCL 150 MG TAB PO SCH (08:00)
[2016-12-23] MEDS: POTASSIUM CHLORIDE 20 MEQ TABCR PO SCH (08:19)
[2016-12-23] MEDS: CIPROFLOXACIN 500 MG TAB PO SCH (08:19)
[2016-12-23] MEDS: MAGNESIUM OXIDE 400 MG TAB PO SCH (08:20)
[2016-12-23] MEDS: FUROSEMIDE 40 MG TAB PO SCH (08:20)
[2016-12-23] MEDS: METOPROLOL SUCC 25MG EXT REL TAB PO SCH (08:20)
[2016-12-23] MEDS: DOXYCYCLINE HYCLATE 100 MG CAP PO SCH (08:21)
[2016-12-23] MEDS: LISINOPRIL 10 MG TAB PO SCH (08:21)
[2016-12-23] MEDS: CHOLECALCIFEROL 1000 INTER.UNIT TAB PO SCH (08:21)
[2016-12-23] MEDS: NYSTATIN POWDER 15GM BTL EXT SCH (09:55)
[2016-12-23] MEDS ORDERED: WARFARIN SOD 2.5 MG TAB PO ONE (11:15)
--- NOTE | 2016-12-23 11:25 | Progress Note ---
Medicine Progress Note Date & Time of Visit: Dec 23, 2016 at 10:20 . Subjective Doing well. No fever. Mild dyspnea / orthopnea at baseline. No chest pain. No nausea, vomiting, diarrhea. Legs feel better. . Objective Last 8 Hrs Date Time Temp Pulse Resp B/P (MAP) Pulse Ox O2 Delivery O2 Flow Rate FiO2 12/23/16 07:19 36.4 91 20 117/76 (90) 96 Room Air Physical Exam: General- no distress Neck- no JVD Lungs- clear to auscultation Heart- irregular Abdomen- + BS, soft, nontender Extremities- bilateral lymphedema R > L, lower legs / ankles bandaged Neuro- alert . Laboratory Results: Last 24 Hours Test 12/23/16 05:54 Prothrombin Time 26.1 SECONDS Prothromb Time International Ratio 2.4 Assessment & Plan CELLULITIS / VENOUS STASIS ULCERS LLE Initially received IV vancomycin + cefepime. ID consulted. Wound culture grew MSSA + Pseudomonas aeruginosa, both pansensitive. Blood cultures negative. Appearance of wounds, pain, and leukocytosis improved with IV antibiotics. ID recommended transition to oral therapy with doxycycline and ciprofloxacin with anticipated long course of therapy. Wound Care Nursing consulted. Silvadene initially tried, but patient did not tolerate due to severe burning. History of iodine / shellfish allergy, but tolerating Xeroform. Follow-up with Wound Clinic with coordinated visit with Wound Care (Dr. Roblero) and ID (Dr. Hernandez). Duration of antibiotics to be determined by Wound Care / ID. CHRONIC ATRIAL FIBRILLATION Rate controlled on metoprolol. On warfarin with elevated INR of 6.7 at time of admission. Held warfarin and resume when INR therapeutic. INR day of discharge = 2.4. Resume warfarin today at reduced dose of 2.5 mg daily. WILL RECEIVE DOSE AT [facility] 12/23 BEFORE TRANSFER TO [facility]; NEXT DOSE 12/24 @ [facility] Will need to monitor INR closely while receiving antibiotic therapy. CHRONIC DIASTOLIC CHF History of chronic left ventricular diastolic heart failure. Has chronic lower extremity lymphedema which is refractory to diuretic therapy. Compensated. Continue furosemide. Follow weights, labs. LYMPHEDEMA Diuretic therapy with caution to avoid diuresis. Elevated lower extremities when able. Outpatient follow-up with lymphedema clinic when able. HYPERTENSION Continue metoprolol and lisinopril. VTE PROPHYLAXIS On warfarin with elevated INR. Warfarin held until INR therapeutic, then resumed. Ambulate as able. DISPOSITION Daughter concerned that she cannot provide comprehensive / 24 hour care at home. Patient agrees to skilled care. Case Management consulted and referral made to [facility]. Family Medicine follow-up with Dr. Munoz. Follow-up with [facility] (Drs. Roblero + Mary). . Consultants: ID - Dr. Hernandez Wound Care Nursing . Procedures: IV meds venous duplex lower extremities PT OT . Current Inpatient Medications: Current Inpatient Medications Medications (Trade) Dose Ordered Sig/Ariela Route Start Time Stop Time Status Last Admin Dose Admin Acetaminophen (Tylenol Tab) 650 mg Q4H PRN PO 12/19/16 20:15 01/18/17 20:14 12/21/16 08:19 650 MG Polyethylene (Miralax Powder Packet) 17 gm DAILY PRN PO 12/19/16 20:15 01/18/17 20:14 Ondansetron HCl (Zofran Inj) 4 mg Q6H PRN IV 12/19/16 20:15 01/18/17 20:14 Cholecalciferol (Vitamin D Tab) 1,000 inter.unit DAILY PO 12/20/16 09:00 01/19/17 08:59 12/23/16 08:21 1,000 INTER.UNIT Ergocalciferol (Vitamin D Cap) 50,000 interunit Q30D PO 12/27/16 09:00 01/26/17 08:59 Lisinopril (Zestril Tab) 10 mg DAILY PO 12/20/16 09:00 01/19/17 08:59 12/23/16 08:21 10 MG Magnesium Oxide (Mag-Ox Tab) 400 mg DAILY PO 12/20/16 09:00 01/19/17 08:59 12/23/16 08:20 400 MG Metoprolol Succinate (Toprol Xl Tab) 25 mg BID PO 12/19/16 21:00 01/18/17 20:59 12/23/16 08:20 25 MG Nitroglycerin (Nitrostat Tab) 0.4 mg UD PRN UT 12/19/16 20:30 01/18/17 20:29 Nystatin (Mycostatin Powder) 1 appln BID EXT 12/20/16 09:00 01/19/17 08:59 12/23/16 09:55 1 APPLN Ciprofloxacin (Cipro Tab) 500 mg BID PO 12/21/16 21:00 12/31/16 20:59 12/23/16 08:19 500 MG Doxycycline Hyclate (Vibramycin Cap) 100 mg BID PO 12/21/16 21:00 12/31/16 20:59 12/23/16 08:21 100 MG Furosemide (Lasix Tab) 40 mg DAILY PO 12/22/16 09:00 01/21/17 08:59 12/23/16 08:20 40 MG Potassium Chloride (Klor-Con Tab) 20 meq DAILY PO 12/22/16 09:00 01/21/17 08:59 12/23/16 08:19 20 MEQ Ranitidine HCl (zANTac TAB) 150 mg DAILY PO 12/22/16 09:00 01/21/17 08:59 12/22/16 07:51 150 MG Warfarin Sodium (Coumadin Tab) 2.5 mg NOW ONCE PO 12/23/16 11:15 12/23/16 11:16
[2016-12-23] MEDS ORDERED: CPR500 PO (11:32)
[2016-12-23] MEDS ORDERED: NYSP EXT (11:32)
[2016-12-23] MEDS ORDERED: DXY100 PO (11:32)
[2016-12-23] MEDS ORDERED: CMD/25 PO ×2 (11:34→11:54)
--- NOTE | 2016-12-23 11:43 | Discharge Instructions ---
Discharge Instructions Date of Service Dec 23, 2016. Admission Reason for Admission: ulcer / cellulitis left lower extremity . Discharge Discharge Diagnosis / Problem: ulcer / cellulitis left lower extremity Discharge Goals Goal(s): Decrease discomfort, Improve disease control Activity Recommendations Activity Level: Assistance Required (walker + assistance) Therapies: Physical Therapy, Occupational Therapy . Additional Information Patient informed of condition: Yes Advance Directives: Yes DNR: No Level of Care: Skilled Communicable Disease: Yes Prognosis: Improving Sanchez Catheter: No Instructions / Follow-Up Instructions / Follow-Up FOLLOW-UP APPOINTMENTS: [facility] Dr. Roblero and Dr. Hernandez. Please contact Wound Clinic and arrange for a visit when they are both scheduled (usually Mondays and Wednesdays) FAMILY MEDICINE Dr. Munoz. Please arrange for f/u appt when patient is discharged from your facility. LYMPHEDEMA CLINIC Please arrange for f/u appt when patient is discharged from your facility. Thank you for receiving this patient in transfer. Please call if you have any questions. Seth Celestin . Current Hospital Diet Patient's current hospital diet: AHA Diet (Heart Healthy) Discharge Diet Recommended Diet: AHA Diet (Heart Healthy) Pending Studies Studies pending at discharge: no Physician Orders On Transfer Special Precautions: fall precautions change position at least q 2 hours . Dressing Changes: bilateral lower extremities: cleanse gently with sterile saline apply Xeroform gauze to ulcers wrap with sterile gauze change daily + PRN . Vital Signs: routine . Weigh: daily . Additional Orders: INR was high at time of admission to [facility]. INR 2.4 on 12/23/16. Received warfarin 2.5 mg on 12/23 at [facility]. Next dose 12/24 @ [facility] Expect INR's to run high with antibiotic therapy. Suggest monitoring MWF. Titrate INR 2-3. Please check basic metabolic profile weekly. Chronic urinary incontinence. Please use adult diapers. Elevate lower extremities when able. . Medical Emergencies . Who to Call and When: Medical Emergencies: If at any time you feel your situation is an emergency, please call 911 immediately. . Non-Emergent Contact Non-Emergency issues call your: Primary Care Provider, Hospital Doctor, Specialist (Wound Care or Infectious Disease) . . "Provider Documentation" section prepared by Seth Celestin. . Core Measure Problem Core Measures: None
--- NOTE | 2016-12-23 11:46 | Discharge Summary ---
Discharge Summary Date of Service Dec 23, 2016. Discharge Summary Admission Date: Dec 19, 2016 at 18:20 Discharge Date: Dec 23, 2016 Discharge Disposition: retirement facility ([facility]) Principal Diagnosis: ulcer / cellulitis left lower extremity (Staph aureus, not MRSA + Pseudomonas aeroginosa . Secondary Diagnoses/Problems: Chronic and Resolved Medical Problems: (1) Atrial fibrillation Status: Chronic (2) GERD (gastroesophageal reflux disease) Status: Chronic (3) Heart failure, diastolic Status: Chronic (4) History of DVT (deep vein thrombosis) Permanent Comment: LUE Status: Chronic (6) Hypertension Status: Chronic (7) Long-term (current) use of anticoagulants Status: Chronic (8) Lymphedema of lower extremity Status: Chronic (9) Osteoarthritis Status: Chronic (10) Urge incontinence Status: Chronic (11) Vitamin D deficiency Status: Chronic Surgical Problems: (1) S/P jo Status: Chronic (2) S/P tonsillectomy Status: Chronic . Procedures: IV meds venous duplex lower extremities PT OT . Consultations: AMANDA - Dr. Hernandez Wound Care Nursing . Medication Reconciliation New Medications: Warfarin Sod (Coumadin) 2.5 Mg Tab 2.5 MG PO DAILY for 999 Days, TAB Titrate to maintain INR 2-3. Next dose 12/24/16. Ciprofloxacin (Ciprofloxacin HCl) 500 Mg Tab 500 MG PO BID for 30 Days, TAB Duration of therapy to be determined by Wound Clinic. Doxycycline Hyclate (Doxycycline Hyclate) 100 Mg Cap 100 MG PO BID for 30 Days, CAP Duration of therapy to be determined by Wound Clinic. Nystatin (Nystop) 45 Appln/15 Gm Powd 1 APPLN EXT BID for 30 Days Apply to rash under breasts and inguinal region. Continued Medications: Cholecalciferol (D3-1000) 1,000 Unit Tab 1000 INTUNIT PO DAILY Ergocalciferol (Vitamin D 61084 Unit) 50,000 Unit Cap 92883 UNIT PO MONTHLY, CAP Ferrous Sulfate (Kp Ferrous Sulfate) 325 Mg Tab 325 MG PO DAILY for 30 Days, #30 TAB 3 Refills Furosemide (Lasix) 40 Mg Tab 40 MG PO DAILY, TAB Lisinopril (Zestril) 10 Mg Tab 10 MG PO DAILY, 5 Refills Magnesium Oxide (Mag-Ox) 400 Mg Tab 400 TAB PO QD, TAB Metoprolol Succinate (Toprol Xl) 25 Mg Tab 1 TAB PO BID Nitroglycerin (Nitrostat) 0.4 Mg Tab 0.4 MG UT UD Potassium Chloride Microencaps (Potassium Chloride Cr) 20 Meq Tab 20 MEQ PO DAILY Ranitidine Hcl (Zantac) 150 Mg Tab 150 MG PO DAILY for 90 Days, #90 TAB 3 Refills Discontinued Medications: Warfarin Sod (Jantoven) 5 Mg Tab 5 MG PO DIRECTED, TAB TAKE 5MG SUN,SUN,SUNDAY Warfarin Sod (Coumadin) 5 Mg Tab 2.5 MG PO 4XWK sunday, sunday, , and sunday Admission Information HPI (per Admitting provider): 86 yo F presents with worsening leg pain L>R with worsening drainage over the past few days. She reports being on Cipro 2 weeks ago out of concern for a superimposed wound infection at that time, but there has been no improvement. The patient also reports a vaginal yeast infection with worsening yeast in her axillae, under her breasts and in her groin area. She has a h/o recurrent cellulitis with chronic venous stasis ulcers to the lower legs and she follows at the lymphedema clinica for regular treatment. She was found to have a supratherapeutic INR of 6 on arrival to the ER. She states that as a result of her yeast infection she took OTC Monistat intravaginal suppositories for 3 days and then took diflucan x 1 dose when that didn't work. She still has some vaginal itching symptoms but this has improved. She also noted some gross hematuria when on the Monistat, which has since reportedly resolved. She is on coumadin for chronic atrial fibrillation and she reports noncompliance with her Metoprolol because she forgets. She denies chest pain, abdominal pain, cough, congestion, vomiting, diarrhea. She does report some fevers and chills as well as fatigue. . Physical Exam (per Admitting): General Appearance: no apparent distress, + obese Head: normocephalic, atraumatic Eyes: PERRL, sclerae normal ENT: hearing grossly normal, pharynx normal Neck: supple, no adenopathy, no JVD, trachea midline Respiratory/Chest: lungs clear, normal breath sounds, no respiratory distress, no accessory muscle use Cardiovascular: no gallop, no JVD, no murmur, normal peripheral pulses, + irregularly irregular Abdomen/GI: normal bowel sounds, non tender, soft, + pertinent finding ( rash under breasts L>R) Genitourinary - Female: + pertinent finding (erythema in intertriginous areas with malodor) Back: normal inspection, normal range of motion Extremities/Musculoskelatal: + pedal edema, + pertinent finding (2+ pitting edema, LLE abrasion with significant non-purulent drainage. ) Neurologic/Psych: no motor/sensory deficits, alert, normal mood/affect, oriented x 3 Skin: + pertinent finding (wounds/rashes as above. ) Hospital Course CELLULITIS / VENOUS STASIS ULCERS LLE Initially received IV vancomycin + cefepime. ID consulted. Wound culture grew MSSA + Pseudomonas aeruginosa, both pansensitive. Blood cultures negative. Appearance of wounds, pain, and leukocytosis improved with IV antibiotics. ID recommended transition to oral therapy with doxycycline and ciprofloxacin with anticipated long course of therapy. Wound Care Nursing consulted. Silvadene initially tried, but patient did not tolerate due to severe burning. History of iodine / shellfish allergy, but tolerating Xeroform. Follow-up with Wound Clinic with coordinated visit with Wound Care (Dr. Roblero) and ID (Dr. Hernandez). Duration of antibiotics to be determined by Wound Care / ID. CHRONIC ATRIAL FIBRILLATION Rate controlled on metoprolol. On warfarin with elevated INR of 6.7 at time of admission. Held warfarin and resume when INR therapeutic. INR day of discharge = 2.4. Resume warfarin today at reduced dose of 2.5 mg daily. WILL RECEIVE DOSE AT [facility] 12/23 BEFORE TRANSFER TO [facility]; NEXT DOSE 12/24 @ [facility] Will need to monitor INR closely while receiving antibiotic therapy. CHRONIC DIASTOLIC CHF History of chronic left ventricular diastolic heart failure. Has chronic lower extremity lymphedema which is refractory to diuretic therapy. Compensated. Continue furosemide. Patient had been advised to take furosemide daily in past, but usually takes it at home on [facility] to avoid inconvenience of diuresis on the other days. Suggest trying daily dosing to help with lower extremity edema / stasis ulcers. Follow weights, labs. LYMPHEDEMA Diuretic therapy with caution to avoid excessive diuresis. Elevated lower extremities when able. Outpatient follow-up with lymphedema clinic when able. HYPERTENSION Continue metoprolol and lisinopril. VTE PROPHYLAXIS On warfarin with elevated INR. Warfarin held until INR therapeutic, then resumed. Ambulate as able. DISPOSITION Daughter concerned that she cannot provide comprehensive / 24 hour care at home. Patient agrees to skilled care. Case Management consulted and referral made to [facility]. Family Medicine follow-up with Dr. Munoz. Follow-up with [facility] (Drs. Roblero + Mary). . Total time spent on discharge = 50 min. This includes examination of the patient, discharge planning, medication reconciliation, and communication with other providers. . Discharge Instructions Date of Service Dec 23, 2016. Admission Reason for Admission: ulcer / cellulitis left lower extremity . Discharge Discharge Diagnosis / Problem: ulcer / cellulitis left lower extremity Discharge Goals Goal(s): Decrease discomfort, Improve disease control Activity Recommendations Activity Level: Assistance Required (walker + assistance) Therapies: Physical Therapy, Occupational Therapy . Additional Information Patient informed of condition: Yes Advance Directives: Yes DNR: No Level of Care: Skilled Communicable Disease: Yes Prognosis: Improving Sanchez Catheter: No Instructions / Follow-Up Instructions / Follow-Up FOLLOW-UP APPOINTMENTS: [facility] WOUND [facility] Dr. Roblero and Dr. Hernandez. Please contact Wound Clinic and arrange for a visit when they are both scheduled (usually Mondays and Wednesdays) FAMILY MEDICINE Dr. Munoz. Please arrange for f/u appt when patient is discharged from your facility. LYMPHEDEMA CLINIC Please arrange for f/u appt when patient is discharged from your facility. Thank you for receiving this patient in transfer. Please call if you have any questions. Seth Celestin . Current Hospital Diet Patient's current hospital diet: AHA Diet (Heart Healthy) Discharge Diet Recommended Diet: AHA Diet (Heart Healthy) Pending Studies Studies pending at discharge: no Physician Orders On Transfer Special Precautions: fall precautions change position at least q 2 hours . Dressing Changes: bilateral lower extremities: cleanse gently with sterile saline apply Xeroform gauze to ulcers wrap with sterile gauze change daily + PRN . Vital Signs: routine . Weigh: daily . Additional Orders: INR was high at time of admission to [facility]. INR 2.4 on 12/23/16. Received warfarin 2.5 mg on 12/23 at [facility]. Next dose 12/24 @ [facility] Expect INR's to run high with antibiotic therapy. Suggest monitoring MWF. Titrate INR 2-3. Please check basic metabolic profile weekly. Chronic urinary incontinence. Please use adult diapers. Elevate lower extremities when able. . Medical Emergencies . Who to Call and When: Medical Emergencies: If at any time you feel your situation is an emergency, please call 911 immediately. . Non-Emergent Contact Non-Emergency issues call your: Primary Care Provider, Hospital Doctor, Specialist (Wound Care or Infectious Disease) . . "Provider Documentation" section prepared by Seth Celestin. . Core Measure Problem Core Measures: None . Additional Copies To Constantino Munoz M.D.; Rosalba Hernandez., D.O.; Garry Roblero, DO
[2016-12-23 12:43] VITALS: BP 117/76; PULSE 91; TEMP 36.4; O2SAT 96
[2016-12-27] MEDS ORDERED: ERGOCALCIFEROL 50,000 INTER.UNIT CAP PO SCH (09:00)
== END 2016-12-23 13:20 | DRG 300 ==
LOC: C.EDB 16:12 → C.MS2W 18:20 → ENRESERV 18:31 → C.4E 12-22 21:42
PROVIDERS: ADMIT Hospitalist; ATTEND Hospitalist
DX: I83.223 Varicose veins of left lower extremity with both ulcer of ankle and inflammation (principal); L03.116 Cellulitis of left lower limb; L97.321 Non-pressure chronic ulcer of left ankle limited to breakdown of skin; I50.32 Chronic diastolic (congestive) heart failure; Z68.41 Body mass index [BMI] 40.0-44.9, adult; B95.61 Methicillin susceptible Staphylococcus aureus infection as the cause of diseases classified elsewhere; B96.5 Pseudomonas (aeruginosa) (mallei) (pseudomallei) as the cause of diseases classified elsewhere; B37.2 Candidiasis of skin and nail; I48.2 Chronic atrial fibrillation; R79.1 Abnormal coagulation profile; T49.0X5A Adverse effect of local antifungal, anti-infective and anti-inflammatory drugs, initial encounter; I11.0 Hypertensive heart disease with heart failure; E55.9 Vitamin D deficiency, unspecified; E66.9 Obesity, unspecified; I89.0 Lymphedema, not elsewhere classified; K21.9 Gastro-esophageal reflux disease without esophagitis; Z91.138 Patient's unintentional underdosing of medication regimen for other reason; Z86.718 Personal history of other venous thrombosis and embolism; Z90.49 Acquired absence of other specified parts of digestive tract; Z79.01 Long term (current) use of anticoagulants; Z79.899 Other long term (current) drug therapy; Z91.041 Radiographic dye allergy status; Z88.2 Allergy status to sulfonamides; Z88.4 Allergy status to anesthetic agent; Z82.0 Family history of epilepsy and other diseases of the nervous system

== ENCOUNTER 2017-03-12 13:38 | Inpatient (IN) | payer OTHER ==
[~2017-03-12] VITALS: Ht 165.1 cm; Wt 118.4 kg
[~2017-03-12 13:38] MED LIST changes: -CHOL100010 PO; +CHOLTAB9 PO; +CMD/25 PO; -CMD5 PO; +DOXY100C76 PO; -ERGO1CAP35 PO; +ERGO500037 PO; +LISI-461 PO; -LISIPOW PO; +METO-478 PO; +NTRGSL/4 UT; +NYSP EXT
--- NOTE | 2017-03-12 14:05 | EMERGENCY ROOM VISIT NOTE ---
History Report prepared by Di: Merlin Vázquez Under the Supervision of: Dr. Chetna Gomez M.D. First contact with patient: 13:43 Chief Complaint: WOUND INFECTION Stated Complaint: WOUND CHECK History of Present Illness The patient is an 87 year old female who presents to the Emergency Room with complaints of a worsening left lower leg and foot wound infection that started about 3 months ago. She states the infection started after she had lotion that she was allergic to, rubbed on the area. The patient says that she was then hospitalized on December 19 for the infection, and was then discharged to [facility]. She notes that she was home for a month, but was then back in [facility]. She adds that the infection has worsened over the past 6 weeks, but really worsened overnight, and got a lot more red. She says that the pain is not constant, but she does get intermittent shooting pain up the left leg. The patient states that she has not had any recent surgeries to the infected area. She notes that she was seen by the wound clinic last week, as the area was weeping, and she had the dressing changed 2 days after that. She adds that her left foot has been draining at times. The patient denies any fevers. She is a borderline diabetic. The patient states that she has been taking doxycycline. Source of History: patient Onset: About 3 months ago Position: leg (left lower) Symptom Intensity: much more red now Quality: other (drainage from area too) Timing: worsening Associated Symptoms: No fevers Note: Associated symptoms: Intermittent shooting pains up left leg. Review of Systems See HPI for pertinent positives & negatives. A total of 10 systems reviewed and were otherwise negative. Past Medical & Surgical Medical Problems: (1) Atrial fibrillation (2) Cellulitis (3) GERD (gastroesophageal reflux disease) (4) Heart failure, diastolic (5) History of DVT (deep vein thrombosis) (6) HTN (hypertension) (7) Hypertension (8) Long-term (current) use of anticoagulants (9) Lymphedema of lower extremity (10) Osteoarthritis (11) Urge incontinence (12) Vitamin D deficiency Surgical Problems: (1) S/P jo (2) S/P tonsillectomy Family History FH: Parkinson's disease MOTHER FH: cancer FATHER Social History Smoking Status: Never Smoker Drug Use: none Marital Status: Occupation Status: retired Current/Historical Medications Scheduled Bilberry (Vaccinium Myrtillus) (Bilberry), 1 CAP PO DAILY Cholecalciferol (D3-1000), 1,000 INTUNIT PO DAILY Doxycycline Monohydrate (Monodox), 100 MG PO BID Ergocalciferol (Vitamin D 00772 Unit), 50,000 UNIT PO MONTHLY Ferrous Sulfate (Kp Ferrous Sulfate), 325 MG PO DAILY Furosemide (Lasix), 40 MG PO UD Lisinopril (Zestril), 10 MG PO DAILY Lutein (Lutein), 1 CAP PO DAILY Magnesium Oxide (Mag-Ox), 400 TAB PO QD Metoprolol Succinate (Toprol Xl), 50 MG PO DAILY Nitroglycerin (Nitrostat), 0.4 MG UT UD Potassium Chloride Microencaps (Potassium Chloride Cr), 20 MEQ PO DAILY Ranitidine Hcl (Zantac), 150 MG PO DAILY Warfarin Sod (Jantoven), 5 MG PO 3XWK Warfarin Sod (Jantoven), 2.5 MG PO 4XWK Allergies Coded Allergies: Anesthetics, Halogenated (Unverified Allergy, Unknown, UNKNOWN, 03/12/17) INDICATED IT ISNT ALL TYPES. IT IS SODIUM PHENYL Dust (Verified Allergy, Unknown, 03/12/17) Iodinated Contrast Media (Verified Allergy, Unknown, `, 03/12/17) POLLEN (Verified Allergy, Unknown, 03/12/17) Shellfish (Verified Allergy, Unknown, HIVES, 03/12/17) Sulfa Drugs (Verified Allergy, Unknown, BOILS, STYES, 03/12/17) Thiopental (Verified Allergy, Unknown, 03/12/17) Trimethoprim (Verified Allergy, Unknown, 03/12/17) Physical Exam Vital Signs Date Time Temp Pulse Resp B/P (MAP) Pulse Ox O2 Delivery O2 Flow Rate FiO2 03/12/17 13:50 93 03/12/17 13:47 36.9 88 20 152/72 98 Room Air Physical Exam Vital signs reviewed. General: Elderly 87 year old female, in no significant distress. HEENT: No scleral icterus, PERRLA, neck supple. Atraumatic. Cardiovascular: Regular rate and rhythm, no extra sounds. Pulmonary: Clear to auscultation bilaterally, normal work of breathing. Abdomen: Soft, obese, nontender, nondistended, positive bowel sounds. Musculoskeletal: Lymphedema to the bilateral lower extremities. A large nearly circumferential ulceration of the ventral surface of the left ankle and foot. There is mild peripheral erythema from the toes through the medial aspect of the left davis. There is some serous drainage. Erythema to the medial left distal thigh as a secondary redness. Neurologic: Patient awake alert and oriented x 3 Skin: Warm, dry, no rash Medical Decision & Procedures Laboratory Results 03/12/17 14:15 Red Blood Count 4.85, Mean Corpuscular Volume 84.3, Mean Corpuscular Hemoglobin 27.6, Mean Corpuscular Hemoglobin Concent 32.8, Mean Platelet Volume 10.1, Neutrophils (%) (Auto) 74.7, Lymphocytes (%) (Auto) 12.9, Monocytes (%) (Auto) 9.5, Eosinophils (%) (Auto) 2.5, Basophils (%) (Auto) 0.3, Neutrophils # (Auto) 7.92, Lymphocytes # (Auto) 1.36, Monocytes # (Auto) 1.00, Eosinophils # (Auto) 0.26, Basophils # (Auto) 0.03 03/12/17 14:15 Test 03/12/17 14:15 White Blood Count 10.58 K/uL (4.8-10.8) Red Blood Count 4.85 M/uL (4.2-5.4) Hemoglobin 13.4 g/dL (12.0-16.0) Hematocrit 40.9 % (37-47) Mean Corpuscular Volume 84.3 fL (80-100) Mean Corpuscular Hemoglobin 27.6 pg (25-34) Mean Corpuscular Hemoglobin Concent 32.8 g/dl (32-36) Platelet Count 275 K/uL (130-400) Mean Platelet Volume 10.1 fL (7.4-10.4) Neutrophils (%) (Auto) 74.7 % Lymphocytes (%) (Auto) 12.9 % Monocytes (%) (Auto) 9.5 % Eosinophils (%) (Auto) 2.5 % Basophils (%) (Auto) 0.3 % Neutrophils # (Auto) 7.92 K/uL (1.4-6.5) Lymphocytes # (Auto) 1.36 K/uL (1.2-3.4) Monocytes # (Auto) 1.00 K/uL (0.11-0.59) Eosinophils # (Auto) 0.26 K/uL (0-0.5) Basophils # (Auto) 0.03 K/uL (0-0.2) RDW Standard Deviation 49.3 fL (36.4-46.3) RDW Coefficient of Variation 16.1 % (11.5-14.5) Immature Granulocyte % (Auto) 0.1 % Immature Granulocyte # (Auto) 0.01 K/uL (0.00-0.02) Prothrombin Time 28.1 SECONDS (9.0-12.0) Prothromb Time International Ratio 2.7 (0.9-1.1) Activated Partial Thromboplast Time 40.4 SECONDS (21.0-31.0) Partial Thromboplastin Ratio 1.6 Anion Gap 8.0 mmol/L (3-11) Est Creatinine Clear Calc Drug Dose 68.2 ml/min Estimated GFR () 86.1 Estimated GFR (Non- 74.3 BUN/Creatinine Ratio 26.4 (10-20) Calcium Level 9.1 mg/dl (8.5-10.1) Total Bilirubin 0.4 mg/dl (0.2-1) Direct Bilirubin < 0.1 mg/dl (0-0.2) Aspartate Amino Transf (AST/SGOT) 15 U/L (15-37) Alanine Aminotransferase (ALT/SGPT) 20 U/L (12-78) Alkaline Phosphatase 81 U/L (45-117) Total Protein 7.2 gm/dl (6.4-8.2) Albumin 2.8 gm/dl (3.4-5.0) Laboratory results per my review. ED Course 1355: Past medical records reviewed. The patient was evaluated in room A3. A complete history and physical examination was performed. 1427: Ordered Rocephin Inj 1 gm IV, Vancomycin HCl 2800 mg/Sodium Chloride 556 ml @ 200 mls/hr IV. 1455: Upon reevaluation, the patient is resting comfortably. I discussed laboratory and radiographic results with her. She verbalized agreement of the treatment plan. The patient will be evaluated for further management and care. 1457: I reviewed the patient's case with Shira Gunter. She will evaluate the patient for further management. Medical Decision Differential diagnosis: Etiologies such as cellulitis, abscess, MRSA infection, DVT, necrotizing fasciitis, dermatitis, drug eruption, as well as others were entertained.. This patient was evaluated and appeared to be in no significant distress. IV access was obtained and laboratory work was drawn. Patient was placed on the monitor worker. Laboratory work reveals a normal white blood cell count. INR is 2.7. The patient's wound appears to be progressively more infected. She is currently on doxycycline however there is erythema that has progressed beyond the knee. Patient has chronic lymphedema which is likely the source of her chronic wound and poor healing. Patient will be evaluated by the hospitalist service for further management. She has been started on IV vancomycin and ceftriaxone. She is aware of the plan and agrees. Medication Reconcilliation Current Medication List: was personally reviewed by me Blood Pressure Screening Patient's blood pressure: Elevated blood pressure Referred to hospitalist. Consults Time Called: [phone] Consulting Physician: Shira Gunter Returned Call: [phone] I reviewed the patient's case with Shira Gunter. She will evaluate the patient for further management. Impression Primary Impression: Cellulitis of left lower extremity Scribe Attestation The scribe's documentation has been prepared under my direction and personally reviewed by me in its entirety. I confirm that the note above accurately reflects all work, treatment, procedures, and medical decision making performed by me. Departure Information Dispostion Being Evaluated By Hospitalist Referrals Constantino Munoz M.D. (PCP) Patient Instructions [facility]
[2017-03-12] MEDS ORDERED: CEFTRIAXONE SOD INJ 1 GM ADDVIAL IV STA (14:27)
[2017-03-12] MEDS ORDERED: VANCOMYCIN INJ 2,800 MG in SODIUM CHLORIDE 0.9% 500ML 500 ML IV STA (14:27)
[2017-03-12] MEDS ORDERED: VANCOMYCIN CONSULT ACTIVE PRN ×2 (14:30→16:00)
[2017-03-12] MEDS ORDERED: WARF5TAB7 PO ×2 (14:43)
[2017-03-12] MEDS ORDERED: METO-217 PO (14:45)
[2017-03-12] MEDS ORDERED: BILB1CAP PO (14:46)
[2017-03-12] MEDS ORDERED: LUTE20CA PO (14:46)
[2017-03-12 14:48] LABS: BASO % 0.3 %; BASO ABS # 0.03 K/uL (0-0.2); EOS % 2.5 %; EOS ABS # 0.26 K/uL (0-0.5); HEMATOCRIT 40.9 % (37-47); HEMOGLOBIN 13.4 g/dL (12.0-16.0); IG# 0.01 K/uL (0.00-0.02); LYMPH % 12.9 %; LYMPH ABS # 1.36 K/uL (1.2-3.4); MEAN CELL VOLUME 84.3 fL (80-100); MEAN CORPUSCULAR HEMOGLOBIN 27.6 pg (25-34); MEAN CORPUSCULAR HGB CONC 32.8 g/dl (32-36); MEAN PLATELET VOLUME 10.1 fL (7.4-10.4); MONO % 9.5 %; NEUT % 74.7 %; NEUT ABS # 7.92 K/uL (1.4-6.5); PLATELET COUNT 275 K/uL (130-400); RED CELL DISTRIBUTION WIDTH CV 16.1 % (11.5-14.5); RED CELL DISTRIBUTION WIDTH SD 49.3 fL (36.4-46.3); WHITE BLOOD COUNT 10.58 K/uL (4.8-10.8)
[2017-03-12 14:51] LABS: INR 2.7 (0.9-1.1); PTT PATIENT 40.4 SECONDS (21.0-31.0)
[2017-03-12 14:54] LABS: ALBUMIN 2.8 gm/dl (3.4-5.0); ALT/SGPT 20 U/L (12-78); BLOOD UREA NITROGEN 19 mg/dl (7-18); CALCIUM 9.1 mg/dl (8.5-10.1); CARBON DIOXIDE 28 mmol/L (21-32); CREATININE 0.72 mg/dl (0.60-1.20); GLUCOSE 107 mg/dl (70-99); SODIUM 139 mmol/L (136-145)
[2017-03-12 14:57] LABS: ALKALINE PHOSPHATASE 81 U/L (45-117); AST/SGOT 15 U/L (15-37); TOTAL PROTEIN 7.2 gm/dl (6.4-8.2)
[2017-03-12] MEDS ORDERED: CONSULT PHARMACY STA ×2 (15:40→15:46)
[2017-03-12] MEDS ORDERED: ENOXAPARIN 40 MG/0.4 ML SYR SQ SCH (15:45)
[2017-03-12] MEDS ORDERED: ONDANSETRON INJ 2 MG/ML 2 ML VIAL IV PRN (15:45)
[2017-03-12] MEDS ORDERED: ACETAMINOPHEN 325 MG TAB PO PRN (15:45)
[2017-03-12] MEDS ORDERED: DOCU100C31 PO (15:52)
[2017-03-12] MEDS ORDERED: NYST100010 TD (15:52)
[2017-03-12] MEDS ORDERED: WARFARIN SOD 5 MG TAB PO SCH (16:00)
[2017-03-12] MEDS ORDERED: PIPERACILL/TAZOBAC CONSULT ACTIVE PRN (16:00)
--- NOTE | 2017-03-12 16:14 | Pharmacy Progress Note ---
Pharmacy Antibiotic Consult Date of Service: Mar 12, 2017. Pharmacy Dosing Scope Pharmacy is consulted to initiate vancomycin/zosynIV dosing therapy, order appropriate labs and adjust drug dose/frequency. Subjective The patient is a 87 year old female admitted on 03/12/2017 . Objective Height (Feet): 5 Height (Inches): 5.00 Weight (Kilograms): 118.400 Lab Results (24hrs): Test 03/12/17 14:15 White Blood Count 10.58 K/uL (4.8-10.8) Red Blood Count 4.85 M/uL (4.2-5.4) Hemoglobin 13.4 g/dL (12.0-16.0) Hematocrit 40.9 % (37-47) Mean Corpuscular Volume 84.3 fL (80-100) Mean Corpuscular Hemoglobin 27.6 pg (25-34) Mean Corpuscular Hemoglobin Concent 32.8 g/dl (32-36) Platelet Count 275 K/uL (130-400) Mean Platelet Volume 10.1 fL (7.4-10.4) Neutrophils (%) (Auto) 74.7 % Lymphocytes (%) (Auto) 12.9 % Monocytes (%) (Auto) 9.5 % Eosinophils (%) (Auto) 2.5 % Basophils (%) (Auto) 0.3 % Neutrophils # (Auto) 7.92 K/uL (1.4-6.5) Lymphocytes # (Auto) 1.36 K/uL (1.2-3.4) Monocytes # (Auto) 1.00 K/uL (0.11-0.59) Eosinophils # (Auto) 0.26 K/uL (0-0.5) Basophils # (Auto) 0.03 K/uL (0-0.2) RDW Standard Deviation 49.3 fL (36.4-46.3) RDW Coefficient of Variation 16.1 % (11.5-14.5) Immature Granulocyte % (Auto) 0.1 % Immature Granulocyte # (Auto) 0.01 K/uL (0.00-0.02) Prothrombin Time 28.1 SECONDS (9.0-12.0) Prothromb Time International Ratio 2.7 (0.9-1.1) Activated Partial Thromboplast Time 40.4 SECONDS (21.0-31.0) Partial Thromboplastin Ratio 1.6 Sodium Level 139 mmol/L (136-145) Potassium Level 4.0 mmol/L (3.5-5.1) Chloride Level 103 mmol/L (98-107) Carbon Dioxide Level 28 mmol/L (21-32) Anion Gap 8.0 mmol/L (3-11) Blood Urea Nitrogen 19 mg/dl (7-18) Creatinine 0.72 mg/dl (0.60-1.20) Est Creatinine Clear Calc Drug Dose 68.2 ml/min Estimated GFR () 86.1 Estimated GFR (Non- 74.3 BUN/Creatinine Ratio 26.4 (10-20) Random Glucose 107 mg/dl (70-99) Calcium Level 9.1 mg/dl (8.5-10.1) Total Bilirubin 0.4 mg/dl (0.2-1) Direct Bilirubin < 0.1 mg/dl (0-0.2) Aspartate Amino Transf (AST/SGOT) 15 U/L (15-37) Alanine Aminotransferase (ALT/SGPT) 20 U/L (12-78) Alkaline Phosphatase 81 U/L (45-117) Total Protein 7.2 gm/dl (6.4-8.2) Albumin 2.8 gm/dl (3.4-5.0) Micro Results: Date/Time Source Procedure Growth Status 03/12/17 14:58 Blood Blood Culture Pending Received 03/12/17 14:15 Blood Blood Culture Pending Received Recent Pertinent Medications Patient was taking doxycyline outpatient Assessment & Plan Assessment: 87 yo female came to ED with worsening left lower leg and foot wound infection starting about 3 months ago. Patient was taking doxycycline outpatient WBC 10.5/ neut 8 Drainage cultures from 12/19/16 grew MSSA and pseudomonas Starting vancomycin/zosyn for LLE wound. Plan: Loading dose: 2800 mg (24 mg/kg) IV X 1 dose given in the ED then: 1500 mg (13mg/kg) q16H hours. * pk: used age maximum CrCl 61.3, SCr 0.72, t1/2 ~ 12.6 hrs, Ke 0.055 * Used conservative dose/frequency given the patient is at risk for accumulation with BMI > 35 and elderly Goal trough level estimate: between 15-20 mcg/mL. Will reassess renal function and order level tomorrow morning. Pharmacy will continue to follow and will adjust dose/frequency as necessary. Thank you
[2017-03-12] MEDS ORDERED: PIPERACILLIN/TAZOBACTAM 4.5 GM/100ML D5W IV ONE (16:15)
[2017-03-12 17:32] VITALS: O2SAT 96; BMI 43.4
--- NOTE | 2017-03-12 17:53 | History and Physical ---
History & Physical Date & Time of Service: Mar 12, 2017 at ~ 15:15 Chief Complaint: Left Lower Extremity Wound Primary Care Physician: Constantino Munoz M.D. History of Present Illness 87 year old female who presents to the ED with left lower extremity wound. Patient was seen at the wound care center last week for this wound. Culture was obtained that grew MSSA. Patient was started on doxycycline on 03/08. Home health nursing saw the patient on 03/08 and placed a dressing on the wound. Patent was instructed to keep the dressing on until 03/13. Yesterday patient reports the dressing felt increasing wet. She called the wound care center today who advised to have the dressing removed. Home health nursing came to remove the dressing and when it was removed there was a large ulcerated area over the anterior ankle with foul smell and significant amount of serous drainage. Patient was then referred to the ED for further evaluation. Patient denies fever and chills. No chest pain. She has chronic exertional shortness of breath which is unchanged from baseline. She denies lightheadedness, dizziness, diaphoresis, or syncopal events. No abdominal pain, nausea, vomiting, or diarrhea. She has chronic urinary incontinence at baseline. She denies other urinary symptoms. In the ED, patient's labs are unremarkable and vitals are stable. She was given IV Vanco and IV ceftriaxone. Past Medical/Surgical History Medical Problems: (1) Atrial fibrillation Status: Chronic (2) bladder stimulator Status: Chronic (3) GERD (gastroesophageal reflux disease) Status: Chronic (4) Heart failure, diastolic Permanent Comment: echo 2012 - EF 55-60%, grade III diastolic dysfunction, mild MR, mild TR Status: Chronic (5) History of DVT (deep vein thrombosis) Permanent Comment: LUE Status: Chronic (6) HTN (hypertension) Status: Chronic (7) Hypertension Status: Chronic (8) Long-term (current) use of anticoagulants Status: Chronic (9) Lymphedema of lower extremity Status: Chronic (10) Osteoarthritis Status: Chronic (11) Urge incontinence Status: Chronic (12) Vitamin D deficiency Status: Chronic Surgical Problems: (1) H/O dilation and curettage Status: Chronic (2) S/P jo Status: Chronic (3) S/P tonsillectomy Status: Chronic Family History non contributory due to patient's advanced age Social History Smoking Status: Never Smoker Alcohol Use: none Immunizations History of Influenza Vaccine: Yes Influenza Vaccine Date: Nov 24, 2011 History of Tetanus Vaccine?: Yes Tetanus Immunization Date: Jun 21, 2005 History of Pneumococcal: Yes Pneumococcal Date: Jan 14, 2015 Multi-Drug Resistant Organisms History of MDRO: No Allergies Coded Allergies: Anesthetics, Halogenated (Unverified Allergy, Unknown, UNKNOWN, 03/12/17) INDICATED IT ISNT ALL TYPES. IT IS SODIUM PHENYL Dust (Verified Allergy, Unknown, 03/12/17) Iodinated Diagnostic Agents (Verified Allergy, Unknown, `, 03/12/17) POLLEN (Verified Allergy, Unknown, 03/12/17) Shellfish (Verified Allergy, Unknown, HIVES, 03/12/17) Sulfa Antibiotics (Verified Allergy, Unknown, BOILS, STYES, 03/12/17) Thiopental (Verified Allergy, Unknown, 03/12/17) Trimethoprim (Verified Allergy, Unknown, 03/12/17) Home Medications Scheduled Bilberry (Vaccinium Myrtillus) (Bilberry), 1 CAP PO DAILY Cholecalciferol (D3-1000), 1,000 INTUNIT PO DAILY Doxycycline Monohydrate (Monodox), 100 MG PO BID Ergocalciferol (Vitamin D 59198 Unit), 50,000 UNIT PO MONTHLY Ferrous Sulfate (Kp Ferrous Sulfate), 325 MG PO DAILY Furosemide (Lasix), 40 MG PO UD Lisinopril (Zestril), 10 MG PO DAILY Lutein (Lutein), 1 CAP PO DAILY Magnesium Oxide (Mag-Ox), 400 MG PO QD Metoprolol Succinate (Toprol Xl), 50 MG PO DAILY Nitroglycerin (Nitrostat), 0.4 MG UT UD Nystatin (Topical) (Nystop), 1 APPLN TD TID Potassium Chloride Microencaps (Potassium Chloride Cr), 20 MEQ PO DAILY Ranitidine Hcl (Zantac), 150 MG PO DAILY Warfarin Sod (Jantoven), 5 MG PO 3XWK Warfarin Sod (Jantoven), 2.5 MG PO 4XWK Scheduled PRN Docusate Sodium (Docusate Sodium), 1 CAP PO DAILY PRN for Constipation Review of Systems ROS per HPI, all other systems reviewed and negative Physical Exam Vital Signs Date Time Temp Pulse Resp B/P (MAP) Pulse Ox O2 Delivery O2 Flow Rate FiO2 03/12/17 16:13 82 143/64 96 03/12/17 15:33 78 18 141/101 98 Room Air 03/12/17 13:50 93 03/12/17 13:47 36.9 88 20 152/72 98 Room Air General Appearance: WD/WN, no apparent distress, + obese Head: normocephalic, atraumatic Eyes: normal inspection, EOMI, sclerae normal ENT: hearing grossly normal, + pertinent finding (mucous membranes moist) Neck: supple, no JVD, trachea midline Respiratory/Chest: lungs clear, normal breath sounds, no respiratory distress Cardiovascular: normal peripheral pulses, + irregularly irregular (rate controlled), + pertinent finding (+2-3 edema BLLE) Abdomen/GI: normal bowel sounds, non tender, soft, no organomegaly Extremities/Musculoskelatal: normal inspection, no calf tenderness, normal capillary refill Neurologic/Psych: no motor/sensory deficits, alert, normal mood/affect, oriented x 3 Skin: + pertinent finding (abdominal, breast, and groin folds excoriated; large ulcerated wound noted to the anterior aspect of the left ankle with foul odor and serous/serosanguineous drainage) Diagnostics Laboratory Results Results Past 24 Hours Test 03/12/17 14:15 Range/Units White Blood Count 10.58 4.8-10.8 K/uL Red Blood Count 4.85 4.2-5.4 M/uL Hemoglobin 13.4 12.0-16.0 g/dL Hematocrit 40.9 37-47 % Mean Corpuscular Volume 84.3 80-100 fL Mean Corpuscular Hemoglobin 27.6 25-34 pg Mean Corpuscular Hemoglobin Concent 32.8 32-36 g/dl Platelet Count 275 130-400 K/uL Mean Platelet Volume 10.1 7.4-10.4 fL Neutrophils (%) (Auto) 74.7 % Lymphocytes (%) (Auto) 12.9 % Monocytes (%) (Auto) 9.5 % Eosinophils (%) (Auto) 2.5 % Basophils (%) (Auto) 0.3 % Neutrophils # (Auto) 7.92 1.4-6.5 K/uL Lymphocytes # (Auto) 1.36 1.2-3.4 K/uL Monocytes # (Auto) 1.00 0.11-0.59 K/uL Eosinophils # (Auto) 0.26 0-0.5 K/uL Basophils # (Auto) 0.03 0-0.2 K/uL RDW Standard Deviation 49.3 36.4-46.3 fL RDW Coefficient of Variation 16.1 11.5-14.5 % Immature Granulocyte % (Auto) 0.1 % Immature Granulocyte # (Auto) 0.01 0.00-0.02 K/uL Prothrombin Time 28.1 9.0-12.0 SECONDS Prothromb Time International Ratio 2.7 0.9-1.1 Activated Partial Thromboplast Time 40.4 21.0-31.0 SECONDS Partial Thromboplastin Ratio 1.6 Sodium Level 139 136-145 mmol/L Potassium Level 4.0 3.5-5.1 mmol/L Chloride Level 103 98-107 mmol/L Carbon Dioxide Level 28 21-32 mmol/L Anion Gap 8.0 3-11 mmol/L Blood Urea Nitrogen 19 7-18 mg/dl Creatinine 0.72 0.60-1.20 mg/dl Est Creatinine Clear Calc Drug Dose 68.2 ml/min Estimated GFR () 86.1 Estimated GFR (Non- 74.3 BUN/Creatinine Ratio 26.4 10-20 Random Glucose 107 70-99 mg/dl Calcium Level 9.1 8.5-10.1 mg/dl Total Bilirubin 0.4 0.2-1 mg/dl Direct Bilirubin < 0.1 0-0.2 mg/dl Aspartate Amino Transf (AST/SGOT) 15 15-37 U/L Alanine Aminotransferase (ALT/SGPT) 20 12-78 U/L Alkaline Phosphatase 81 45-117 U/L Total Protein 7.2 6.4-8.2 gm/dl Albumin 2.8 3.4-5.0 gm/dl Microbiology Results 03/12/17 Blood Culture, Received Pending 03/12/17 Blood Culture, Received Pending 03/12/17 Gram Stain, Received Pending 03/12/17 Wound Culture, Received Pending Impression Assessment and Plan LLE WOUND / CELLULITIS - admit to med/surg - patient presenting with wound over the anterior aspect of the left ankle; culture was obtained on 03/06 that grew MSSA. Patient was started on doxycycline on 03/08. Dressing was placed on 03/08 and had not been removed until today. When it was removed there was a large ulcerated area over the anterior ankle with foul smell and significant amount of serous drainage - does not appear septic - s/p Vanco and Ceftriaxone in the ED - prior cultures have grown MSSA and pseudomonas - will start Vanco / Zosyn - blood and wound cultures - ID consult - wound care consult ATRIAL FIBRILLATION - rate controlled on metoprolol, will continue - anticoagulated on Coumadin, INR 2.7; monitor INR closely while receiving antibiotics CHRONIC DIASTOLIC CHF - appears euvolemic - misses furosemide doses occasionally - continue furosemide HTN - BP controlled, continue lisinopril and metoprolol DVT PROPHYLAXIS - on Coumadin, INR 2.4 DISPO - In my clinical judgment this beneficiary meets acute admission criteria, established by [facility], that includes being hospitalized through two midnights. - PT/OT, case management consults; may need short term rehab placement at discharge Agree with above H and P. Briefly 87F with PMH of A fib, diastolic chf,HTN, Chronic lymphedema of lower extremity presents with non healing left lower extremity wound. Patient was here in November was treated with abx and was discharged to [facility]. The left lower extremity wound almost healed and abx stopped and patient was discharged to home. And since then patient was following with wound care. As it was getting worse wound care started on doxycycline few days back and was placed on dressing. But today dressing became wet with drainage and wound care advised to go to ER. Denies fever/ chills. Always sob. No cough. No abdominal pain. Incontinent of urine chronically. Normal bowel movements. Appetite ok. p/e Ge patient is Obese. Not in distress Cvs s1 and s2 heard no murmurs Rs cta b./l no wheezing or crackles. Abd benign Well Cleaner non focal Extremity chronic lower extremity edema. left ankle anterior aspect weeping a/p LLE wound cellulitis started on iv vanco and zosyn wound care and ID consult A fib rate controlled on Lopressor and Coumadin will monitor VTE Prophylaxis VTE Risk Assessment Done? Y/N: Yes Risk Level: Moderate
[2017-03-12] MEDS ORDERED: PIPERACILL/TAZOBAC IV 4.5 GM in DEXTROSE 5% 100ML IV ONE ×2 (18:00→20:00)
[2017-03-12] MEDS: NYSTATIN POWDER 15GM BTL EXT SCH (19:42)
[2017-03-13] MEDS ORDERED: PIPERACILL/TAZOBAC IV 4.5 GM in DEXTROSE 5% 100ML 100 ML IV SCH ×2
[2017-03-13 00:46] VITALS: BP 115/74; PULSE 93; TEMP 36.8; O2SAT 96
[2017-03-13] MEDS: PIPERACILL/TAZOBAC IV 4.5 GM in DEXTROSE 5% 100ML 100 ML IV SCH ×3 (02:15→19:07)
[2017-03-13] MEDS: VANCOMYCIN INJ 1,500 MG in SODIUM CHLORIDE 0.9% 500ML 500 ML IV SCH ×2 (04:08→20:19)
[2017-03-13 06:16] LABS: HEMATOCRIT 34.8 % (37-47); HEMOGLOBIN 11.3 g/dL (12.0-16.0); MEAN CELL VOLUME 83.9 fL (80-100); MEAN CORPUSCULAR HEMOGLOBIN 27.2 pg (25-34); MEAN CORPUSCULAR HGB CONC 32.5 g/dl (32-36); MEAN PLATELET VOLUME 9.8 fL (7.4-10.4); PLATELET COUNT 231 K/uL (130-400); RED CELL DISTRIBUTION WIDTH CV 16.2 % (11.5-14.5); RED CELL DISTRIBUTION WIDTH SD 49.3 fL (36.4-46.3); WHITE BLOOD COUNT 7.26 K/uL (4.8-10.8)
[2017-03-13 06:24] LABS: INR 2.9 (0.9-1.1)
[2017-03-13] MEDS: RANITIDINE HCL 150 MG TAB PO SCH (06:27)
[2017-03-13 06:47] LABS: CALCIUM 8.3 mg/dl (8.5-10.1); CREATININE 0.81 mg/dl (0.60-1.20); POTASSIUM 3.8 mmol/L (3.5-5.1)
[2017-03-13 07:55] VITALS: BP 144/77; PULSE 89; TEMP 36.7; O2SAT 96
[2017-03-13] MEDS: LISINOPRIL 10 MG TAB PO SCH (08:09)
[2017-03-13] MEDS: MAGNESIUM OXIDE 400 MG TAB PO SCH (08:09)
[2017-03-13] MEDS: METOPROLOL SUCC 50MG EXT REL TAB PO SCH (08:09)
[2017-03-13] MEDS: FERROUS SULFATE 325 MG TAB PO SCH (08:09)
[2017-03-13] MEDS: POTASSIUM CHLORIDE 20 MEQ TABCR PO SCH (08:09)
[2017-03-13] MEDS: NYSTATIN POWDER 15GM BTL EXT SCH ×3 (08:10→19:10)
[2017-03-13] MEDS: CHOLECALCIFEROL 1000 INTER.UNIT TAB PO SCH (08:10)
[2017-03-13] MEDS: FUROSEMIDE 40 MG TAB PO SCH (08:10)
[2017-03-13] MEDS: DOCUSATE SODIUM 100 MG CAP PO PRN (08:10)
--- NOTE | 2017-03-13 10:19 | Clinical Documentation Query ---
ROBERT Gonzalez : CLINICAL DOCUMENTATION QUERY In order to capture the BMI from the medical record, an associated diagnosis must explicitly documented by the provider. As appropriate, consider documentation as suggested below. Thank you. In your clinical opinion is this patient being managed for: ( x ) Obesity, BMI 43.4 kg/m*m (AGREE IF AHA DIET COUNTS FOR TREATMENT) ( ) Not Agree ( ) Other explanation of clinical findings (Please Explain) ( ) Unable to determine (Please Define) ( ) Need to Discuss The medical record reflects the following clinical findings, treatment, and risk factors. Clinical Indicators: As above Treatment: AHA diet Risk Factors: Caloric intake > caloric expenditure Documentation for BMI, Depth of Non-pressure ulcers, Pressure Ulcer Stages, Coma Scale, and NIH Stroke Scale For the Body Mass Index (BMI), depth of non-pressure chronic ulcers, pressure ulcer stage, coma scale, and NIH stroke scale (NIHSS) codes, code assignment may be based on medical record documentation from clinicians who are not the patient's provider (i.e., physician or other qualified healthcare practitioner legally accountable for establishing the patient's diagnosis), since this information is typically documented by other clinicians involved in the care of the patient (e.g., a dietitian often documents the BMI, a nurse often documents the pressure ulcer stages, and an emergency medical technologist often documents the coma scale). However, the associated diagnosis (such as overweight, obesity, acute stroke, or pressure ulcer) must be documented by the patient's provider. If there is conflicting medical record documentation, either from the same clinician or different clinicians, the patient's attending provider should be queried for clarification. Please clarify and document your clinical opinion in the progress notes and discharge summary. Terms such as "probable", "suspected", "likely", "questionable", "possible", or "still to be ruled out" are acceptable. IF IN AGREEMENT, YOU MUST DOCUMENT ABOVE DIAGNOSTIC STATEMENT IN DAILY PROGRESS NOTES AND DISCHARGE SUMMARY. This document is not part of the patient's record. Thank You, Beto Horton, MATHIEU [phone]
--- NOTE | 2017-03-13 11:54 | Medical Consult ---
Consultation Date of Consultation: Mar 13, 2017. Attending Physician: Seth Celestin M.D. Reason for Consultation: Left lower extremity cellulitis, wound History of Present Illness 87-year-old female well known to the Infectious Disease service with history of atrial fibrillation, DVT, chronic lower extremity edema, recurrent cellulitis, and previous open wounds of lower extremity followed at the wound Care Center. She was recently seen for wound care, and last week culture grew a methicillin sensitive Staph aureus, and patient was started on doxycycline and wrapping of legs was done. Over the last several days, patient has noted significantly worsening drainage from the area with saturation of her dressing, and yesterday the bandages were finally removed and patient noted severe drainage and significantly worsening erythema of her foot and leg. She was therefore brought to the emergency room and admitted for further management of probable cellulitis. She has been started empirically on vancomycin and Zosyn.. Blood cultures are pending. Patient denies any significant associated fever or increase in her baseline chills. has chronic shortness of breath associated with her atrial fibrillation. Past Medical/Surgical History Medical Problems: (1) Left leg cellulitis Status: Acute (2) Supratherapeutic INR Status: Acute Medical Problems: (1) Atrial fibrillation (2) bladder stimulator (3) GERD (gastroesophageal reflux disease) (4) Heart failure, diastolic (5) History of DVT (deep vein thrombosis) (6) HTN (hypertension) (7) Hypertension (8) Long-term (current) use of anticoagulants (9) Lymphedema of lower extremity (10) Osteoarthritis (11) Urge incontinence (12) Vitamin D deficiency Surgical Problems: (1) H/O dilation and curettage (2) S/P jo (3) S/P tonsillectomy Family History FH: Parkinson's disease MOTHER FH: cancer FATHER Social History Smoking Status: Never Smoker Alcohol Use: none Allergies Coded Allergies: Anesthetics, Halogenated (Unverified Allergy, Unknown, UNKNOWN, 03/12/17) INDICATED IT ISNT ALL TYPES. IT IS SODIUM PHENYL Dust (Verified Allergy, Unknown, 03/12/17) Iodinated Diagnostic Agents (Verified Allergy, Unknown, `, 03/12/17) POLLEN (Verified Allergy, Unknown, 03/12/17) Shellfish (Verified Allergy, Unknown, HIVES, 03/12/17) Sulfa Antibiotics (Verified Allergy, Unknown, BOILS, STYES, 03/12/17) Thiopental (Verified Allergy, Unknown, 03/12/17) Trimethoprim (Verified Allergy, Unknown, 03/12/17) Current Inpatient Medications Current Inpatient Medications Medications (Trade) Dose Ordered Sig/Ariela Route Start Time Stop Time Status Last Admin Dose Admin Acetaminophen (Tylenol Tab) 650 mg Q4H PRN PO 03/12/17 15:45 04/11/17 15:44 Ondansetron HCl (Zofran Inj) 4 mg Q6H PRN IV 03/12/17 15:45 04/11/17 15:44 Miscellaneous Information (Consult) 1 ea UD PRN N/A 03/12/17 16:00 04/11/17 15:59 Miscellaneous Information (Consult) 1 ea UD PRN N/A 03/12/17 16:00 04/11/17 15:59 Cholecalciferol (Vitamin D Tab) 1,000 inter.unit DAILY PO 03/13/17 08:00 04/12/17 08:59 03/13/17 08:10 1,000 INTER.UNIT Docusate Sodium (coLACE CAP) 100 mg DAILY PRN PO 03/12/17 16:00 04/11/17 15:59 03/13/17 08:10 100 MG Furosemide (Lasix Tab) 40 mg DAILY PO 03/13/17 08:00 04/12/17 08:59 03/13/17 08:10 40 MG Lisinopril (Zestril Tab) 10 mg DAILY PO 03/13/17 08:00 04/12/17 08:59 03/13/17 08:09 10 MG Magnesium Oxide (Mag-Ox Tab) 400 mg DAILY PO 03/13/17 08:00 04/12/17 08:59 03/13/17 08:09 400 MG Metoprolol Succinate (Toprol Xl Tab) 50 mg DAILY PO 03/13/17 08:00 04/12/17 08:59 03/13/17 08:09 50 MG Nystatin (Mycostatin Powder) 1 appln TID EXT 03/12/17 20:00 04/11/17 20:59 03/13/17 08:10 1 APPLN Potassium Chloride (Klor-Con Tab) 20 meq DAILY PO 03/13/17 08:00 04/12/17 08:59 03/13/17 08:09 20 MEQ Ranitidine HCl (zANTac TAB) 150 mg DAILY PO 03/13/17 08:00 04/12/17 08:59 03/13/17 06:27 150 MG Warfarin Sodium (Coumadin Tab) 2.5 mg SuTuThSa@1600 PO 03/13/17 16:00 04/12/17 15:59 Warfarin Sodium (Coumadin Tab) 5 mg MoWeFr@1600 PO 03/12/17 16:00 04/11/17 15:59 03/12/17 19:42 5 MG Ferrous Sulfate (Feosol Tab) 325 mg DAILY PO 03/13/17 08:00 04/12/17 08:59 03/13/17 08:09 325 MG Vancomycin HCl 1500 mg/Sodium Chloride 530 ml @ 200 mls/hr Q16H IV 03/13/17 04:00 03/23/17 03:59 03/13/17 04:08 200 MLS/HR Piperacillin Sod/ Tazobactam Sod 4.5 gm/Dextrose 120 ml @ 30 mls/hr Q8H IV 03/13/17 02:00 03/22/17 19:59 03/13/17 09:42 30 MLS/HR Review of Systems All systems were reviewed and are negative except as per HPI Physical Exam Date Time Temp Pulse Resp B/P (MAP) Pulse Ox O2 Delivery O2 Flow Rate FiO2 03/13/17 08:00 Room Air 03/13/17 07:55 36.7 89 18 144/77 (99) 96 Room Air 03/13/17 00:46 36.8 93 20 115/74 (88) 96 Room Air 03/13/17 00:00 Room Air 03/12/17 20:00 Room Air 03/12/17 17:32 96 Room Air 03/12/17 16:13 82 143/64 96 03/12/17 15:33 78 18 141/101 98 Room Air 03/12/17 13:50 93 03/12/17 13:47 36.9 88 20 152/72 98 Room Air General Appearance: WD/WN, + pertinent finding (Mild respiratory distress) Head: normocephalic, atraumatic Eyes: normal inspection, EOMI, sclerae normal ENT: normal ENT inspection, pharynx normal Neck: supple, no adenopathy, thyroid normal, trachea midline Respiratory/Chest: chest non-tender, lungs clear, normal breath sounds, no respiratory distress Cardiovascular: no gallop, no murmur, + irregularly irregular Abdomen/GI: normal bowel sounds, non tender, soft, no organomegaly Back: normal inspection, no CVA tenderness Extremities/Musculoskelatal: no calf tenderness, + inflammation (Left lower leg and foot), + swelling (Left lower leg and foot), + pertinent finding ( Serous weeping from left lower leg) Neurologic/Psych: alert, oriented x 3 Skin: normal color, no rash, + pertinent finding (Chronic venous stasis changes bilaterally. Left lower leg and foot with marked erythema and tenderness) Lymphatic: no adenopathy Laboratory Results Date/Time Source Procedure Growth Status 03/12/17 14:58 Blood Blood Culture Pending Received 03/12/17 14:15 Blood Blood Culture Pending Received 03/12/17 16:15 Ulcer Leg Lower Left Gram Stain - Final Resulted 03/12/17 16:15 Ulcer Leg Lower Left Wound Culture Pending Resulted Last 24 Hours Test 03/12/17 14:15 03/13/17 06:07 White Blood Count 10.58 K/uL 7.26 K/uL Red Blood Count 4.85 M/uL 4.15 M/uL Hemoglobin 13.4 g/dL 11.3 g/dL Hematocrit 40.9 % 34.8 % Mean Corpuscular Volume 84.3 fL 83.9 fL Mean Corpuscular Hemoglobin 27.6 pg 27.2 pg Mean Corpuscular Hemoglobin Concent 32.8 g/dl 32.5 g/dl Platelet Count 275 K/uL 231 K/uL Mean Platelet Volume 10.1 fL 9.8 fL Neutrophils (%) (Auto) 74.7 % Lymphocytes (%) (Auto) 12.9 % Monocytes (%) (Auto) 9.5 % Eosinophils (%) (Auto) 2.5 % Basophils (%) (Auto) 0.3 % Neutrophils # (Auto) 7.92 K/uL Lymphocytes # (Auto) 1.36 K/uL Monocytes # (Auto) 1.00 K/uL Eosinophils # (Auto) 0.26 K/uL Basophils # (Auto) 0.03 K/uL RDW Standard Deviation 49.3 fL 49.3 fL RDW Coefficient of Variation 16.1 % 16.2 % Immature Granulocyte % (Auto) 0.1 % Immature Granulocyte # (Auto) 0.01 K/uL Prothrombin Time 28.1 SECONDS 29.4 SECONDS Prothromb Time International Ratio 2.7 2.9 Activated Partial Thromboplast Time 40.4 SECONDS Partial Thromboplastin Ratio 1.6 Sodium Level 139 mmol/L 141 mmol/L Potassium Level 4.0 mmol/L 3.8 mmol/L Chloride Level 103 mmol/L 109 mmol/L Carbon Dioxide Level 28 mmol/L 28 mmol/L Anion Gap 8.0 mmol/L 4.0 mmol/L Blood Urea Nitrogen 19 mg/dl 16 mg/dl Creatinine 0.72 mg/dl 0.81 mg/dl Est Creatinine Clear Calc Drug Dose 68.2 ml/min 60.6 ml/min Estimated GFR () 86.1 74.6 Estimated GFR (Non- 74.3 64.4 BUN/Creatinine Ratio 26.4 19.2 Random Glucose 107 mg/dl 107 mg/dl Calcium Level 9.1 mg/dl 8.3 mg/dl Total Bilirubin 0.4 mg/dl Direct Bilirubin < 0.1 mg/dl Aspartate Amino Transf (AST/SGOT) 15 U/L Alanine Aminotransferase (ALT/SGPT) 20 U/L Alkaline Phosphatase 81 U/L Total Protein 7.2 gm/dl Albumin 2.8 gm/dl Assessment & Plan 87-year-old female with history of recurrent cellulitis of left lower extremity , recently on doxycycline for positive culture for MSSA, now with cellulitis of the lower leg and foot. Vancomycin and Zosyn appropriate for now pending further culture results. I will adjust once culture results are available. May benefit from chronic suppressive therapy once acute infection has subsided. Will follow.
[2017-03-13 15:17] VITALS: BP 128/79; PULSE 82; TEMP 36.7; O2SAT 96
[2017-03-13 15:56] VITALS: Ht 165.1 cm; Wt 118.4 kg
[2017-03-13 16:00] VITALS: O2SAT 96
[2017-03-13] MEDS ORDERED: WARFARIN SOD 2.5 MG TAB PO SCH (16:00)
[2017-03-13] MEDS ORDERED: NURSING VERBAL MED ORDER ONE (16:00)
[2017-03-13] MEDS: WARFARIN SOD 2.5 MG TAB PO SCH (19:07)
--- NOTE | 2017-03-13 20:56 | Progress Note ---
Medicine Progress Note Date & Time of Visit: Mar 13, 2017 at 19:40 . Subjective CC: Follow-up visit for cellulitis LLE and other problems. HPI: Afebrile. Persistent discomfort LLE. ROS: General- no fever, no chills Resp- pulmonary status at baseline, chronic cough and dyspnea Cardiac- no chest pain, no edema GI- no nausea, no vomiting, no diarrhea - no dysuria . Objective Last 8 Hrs Date Time Temp Pulse Resp B/P (MAP) Pulse Ox O2 Delivery O2 Flow Rate FiO2 03/13/17 16:00 96 Room Air 03/13/17 15:17 36.7 82 20 128/79 (95) 96 Room Air Physical Exam: General- lying in bed; no distress Lungs- clear to auscultation; no respiratory distress Cardiovascular- RRR, no murmur or gallop appreciated; no JVD; 2+ pretibial edema Abdomen- + BS, soft, nontender Extremities- no cyanosis; no right calf tenderness; left calf tenderness probably due to cellulitis; left leg bandaged Neuro- alert, oriented Skin- warm and dry; left leg bandaged . Laboratory Results: Last 24 Hours Test 03/13/17 06:07 White Blood Count 7.26 K/uL Red Blood Count 4.15 M/uL Hemoglobin 11.3 g/dL Hematocrit 34.8 % Mean Corpuscular Volume 83.9 fL Mean Corpuscular Hemoglobin 27.2 pg Mean Corpuscular Hemoglobin Concent 32.5 g/dl RDW Standard Deviation 49.3 fL RDW Coefficient of Variation 16.2 % Platelet Count 231 K/uL Mean Platelet Volume 9.8 fL Prothrombin Time 29.4 SECONDS Prothromb Time International Ratio 2.9 Sodium Level 141 mmol/L Potassium Level 3.8 mmol/L Chloride Level 109 mmol/L Carbon Dioxide Level 28 mmol/L Anion Gap 4.0 mmol/L Blood Urea Nitrogen 16 mg/dl Creatinine 0.81 mg/dl Est Creatinine Clear Calc Drug Dose 60.6 ml/min Estimated GFR () 74.6 Estimated GFR (Non- 64.4 BUN/Creatinine Ratio 19.2 Random Glucose 107 mg/dl Calcium Level 8.3 mg/dl Assessment & Plan CELLULITIS LEFT LOWER EXTREMITY Recurrent cellulitis. Underlying venous stasis ulcers. ID consulted. Receiving IV vancomycin and piperacillin / tazobactam. CHRONIC ATRIAL FIBRILLATION Rate controlled on metoprolol. Anticoagulated with warfarin. CHRONIC DIASTOLIC CHF History of chronic left ventricular diastolic heart failure. Has chronic lower extremity lymphedema which is refractory to diuretic therapy. Compensated. Continue furosemide. Follow weights, labs. LYMPHEDEMA Diuretic therapy with caution to avoid diuresis. Elevated lower extremities when able. Outpatient follow-up with lymphedema clinic when able. HYPERTENSION Continue metoprolol and lisinopril. GERD Continue ranitidine. VTE PROPHYLAXIS On warfarin with therapeutic INR. Ambulate as able. DISPOSITION To be determined. Family Medicine follow-up with Dr. Munoz. . Current Inpatient Medications: Current Inpatient Medications Medications (Trade) Dose Ordered Sig/Ariela Route Start Time Stop Time Status Last Admin Dose Admin Acetaminophen (Tylenol Tab) 650 mg Q4H PRN PO 03/12/17 15:45 04/11/17 15:44 Ondansetron HCl (Zofran Inj) 4 mg Q6H PRN IV 03/12/17 15:45 04/11/17 15:44 Miscellaneous Information (Consult) 1 ea UD PRN N/A 03/12/17 16:00 04/11/17 15:59 Miscellaneous Information (Consult) 1 ea UD PRN N/A 03/12/17 16:00 04/11/17 15:59 Cholecalciferol (Vitamin D Tab) 1,000 inter.unit DAILY PO 03/13/17 08:00 04/12/17 08:59 03/13/17 08:10 1,000 INTER.UNIT Docusate Sodium (coLACE CAP) 100 mg DAILY PRN PO 03/12/17 16:00 04/11/17 15:59 03/13/17 08:10 100 MG Furosemide (Lasix Tab) 40 mg DAILY PO 03/13/17 08:00 04/12/17 08:59 03/13/17 08:10 40 MG Lisinopril (Zestril Tab) 10 mg DAILY PO 03/13/17 08:00 04/12/17 08:59 03/13/17 08:09 10 MG Magnesium Oxide (Mag-Ox Tab) 400 mg DAILY PO 03/13/17 08:00 04/12/17 08:59 03/13/17 08:09 400 MG Metoprolol Succinate (Toprol Xl Tab) 50 mg DAILY PO 03/13/17 08:00 04/12/17 08:59 03/13/17 08:09 50 MG Nystatin (Mycostatin Powder) 1 appln TID EXT 03/12/17 20:00 04/11/17 20:59 03/13/17 19:10 1 APPLN Potassium Chloride (Klor-Con Tab) 20 meq DAILY PO 03/13/17 08:00 04/12/17 08:59 03/13/17 08:09 20 MEQ Ranitidine HCl (zANTac TAB) 150 mg DAILY PO 03/13/17 08:00 04/12/17 08:59 03/13/17 06:27 150 MG Ferrous Sulfate (Feosol Tab) 325 mg DAILY PO 03/13/17 08:00 04/12/17 08:59 03/13/17 08:09 325 MG Vancomycin HCl 1500 mg/Sodium Chloride 530 ml @ 200 mls/hr Q16H IV 03/13/17 04:00 03/23/17 03:59 03/13/17 20:19 200 MLS/HR Piperacillin Sod/ Tazobactam Sod 4.5 gm/Dextrose 120 ml @ 30 mls/hr Q8H IV 03/13/17 02:00 03/22/17 19:59 03/13/17 19:07 30 MLS/HR Warfarin Sodium (Coumadin Tab) 2.5 mg SuTuThSa@1999 PO 03/13/17 20:00 04/12/17 15:59 03/13/17 19:07 2.5 MG Warfarin Sodium (Coumadin Tab) 5 mg MoWeFr@1999 PO 03/14/17 20:00 04/11/17 15:59
[2017-03-14 00:29] VITALS: BP 126/76; PULSE 82; TEMP 36.4; O2SAT 97
[2017-03-14] MEDS: PIPERACILL/TAZOBAC IV 4.5 GM in DEXTROSE 5% 100ML 100 ML IV SCH ×3 (01:56→19:00)
[2017-03-14] MEDS: FUROSEMIDE 40 MG TAB PO SCH (07:56)
[2017-03-14] MEDS: POTASSIUM CHLORIDE 20 MEQ TABCR PO SCH (07:57)
[2017-03-14] MEDS: LISINOPRIL 10 MG TAB PO SCH (07:58)
[2017-03-14] MEDS: MAGNESIUM OXIDE 400 MG TAB PO SCH (07:58)
[2017-03-14] MEDS: CHOLECALCIFEROL 1000 INTER.UNIT TAB PO SCH (07:58)
[2017-03-14] MEDS: RANITIDINE HCL 150 MG TAB PO SCH (07:58)
[2017-03-14 07:59] VITALS: BP 131/79; PULSE 83; TEMP 36.5; O2SAT 98
[2017-03-14] MEDS: METOPROLOL SUCC 50MG EXT REL TAB PO SCH (07:59)
[2017-03-14] MEDS: FERROUS SULFATE 325 MG TAB PO SCH (07:59)
[2017-03-14] MEDS: NYSTATIN POWDER 15GM BTL EXT SCH ×3 (07:59→19:07)
[2017-03-14 09:08] LABS: INR 3.3 (0.9-1.1)
[2017-03-14 09:26] LABS: CALCIUM 8.8 mg/dl (8.5-10.1); CREATININE 0.76 mg/dl (0.60-1.20); POTASSIUM 3.6 mmol/L (3.5-5.1)
[2017-03-14] MEDS ORDERED: VANCOMYCIN TROUGH ONE (11:30)
[2017-03-14] MEDS: VANCOMYCIN INJ 1,500 MG in SODIUM CHLORIDE 0.9% 500ML 500 ML IV SCH (12:42)
--- NOTE | 2017-03-14 12:59 | Wound Progress Note: Inpatient ---
Wound Progress Note Date of Service Mar 13, 2017. Subjective Pt evaluation today including: conversation w/ patient, physical exam, chart review Patient seen today for follow-up evaluation after admission for cellulitis of her left lower extremity in conjunction with venous ulcer disease. Patient is well-known to the wound center recently seen. Patient denies any significant pain at the current time. Patient denies any fever chills or night sweats. Patient denies any other systemic complaints. Objective Vital Signs Date Time Temp Pulse Resp B/P (MAP) Pulse Ox O2 Delivery O2 Flow Rate FiO2 03/14/17 08:00 Room Air 03/14/17 07:59 36.5 83 18 131/79 (96) 98 Room Air 03/14/17 00:29 36.4 82 20 126/76 (93) 97 Room Air 03/14/17 00:00 Room Air 03/13/17 16:00 96 Room Air 03/13/17 15:17 36.7 82 20 128/79 (95) 96 Room Air Physical Exam Notes: Patients vital signs were reviewed and found to be unremarkable patient is afebrile the ulcerative site of the left lower extremity today measures 12 x 17 with erythema noted at the base. There is no tenderness to palpation present no fluctuance noted. No slough or eschar formation noted. Full range of motion is noted. Distal neurovascular bundles intact. Laboratory Results Last 24 Hours Test 03/14/17 08:08 03/14/17 11:52 Prothrombin Time 33.5 SECONDS Prothromb Time International Ratio 3.3 Sodium Level 142 mmol/L Potassium Level 3.6 mmol/L Chloride Level 108 mmol/L Carbon Dioxide Level 26 mmol/L Anion Gap 8.0 mmol/L Blood Urea Nitrogen 14 mg/dl Creatinine 0.76 mg/dl Est Creatinine Clear Calc Drug Dose 64.6 ml/min Estimated GFR () 80.6 Estimated GFR (Non- 69.5 BUN/Creatinine Ratio 18.7 Random Glucose 100 mg/dl Calcium Level 8.8 mg/dl Vancomycin Level Trough 18.5 mcg/ml Assessment and Plan Assessment: Venous stasis ulceration left lower extremity Chronic venous insufficiency Lymphedema bilateral lower extremities Resolving cellulitis left lower extremity Plan: No debridement is indicated at this time. The site will be dressed with Kaltostat and gauze. 1 layer Tubigrip applied. Dressings changed daily. Patient will continue to be monitored during her hospital course and be followed up in the outpatient clinic upon discharge.
--- NOTE | 2017-03-14 13:16 | Pharmacy Progress Note ---
Pharmacy Abx Dose Short Note Date of Service Mar 14, 2017. Assessment & Plan Assessment 87 year old female receiving vancomycin/zosyn for treatment of LLE wound Day # 3 of antimicrobial therapy. Plan Vancomycin * Trough level of 18.5 mcg/mL is therapeutic. * Change to 1500 mg IV every 18 hours (empiric reduction in dose secondary to BMI) * Goal trough level for LLE with possible MRSA : 15 to 20 mcg/mL * Trough ordered for: 03/17/17 Pharmacy will continue to follow and will adjust dose/frequency as necessary. Thank you.
[2017-03-14 16:00] VITALS: O2SAT 98
[2017-03-14 16:04] VITALS: BP 130/79; PULSE 82; TEMP 36.5; O2SAT 94
[2017-03-14] MEDS: WARFARIN SOD 5 MG TAB PO SCH (16:14)
--- NOTE | 2017-03-14 23:42 | Progress Note ---
Medicine Progress Note Date & Time of Visit: Mar 14, 2017 at 20:30 . Subjective CC: Follow-up visit for cellulitis LLE and other problems. HPI: Afebrile. Persistent discomfort LLE. Having loose stools. No abdominal pain, nausea, vomiting. ROS: General- no fever, no chills Resp- pulmonary status at baseline, chronic cough and dyspnea Cardiac- no chest pain, no edema GI- as noted above in HPI - chronic urinary incontinence; no dysuria . Objective Last 8 Hrs Date Time Temp Pulse Resp B/P (MAP) Pulse Ox O2 Delivery O2 Flow Rate FiO2 03/14/17 16:04 36.5 82 18 130/79 (96) 94 Room Air 03/14/17 16:00 98 Room Air Physical Exam: General- sitting on side of bed; no distress Lungs- clear to auscultation; no respiratory distress Cardiovascular- RRR, no murmur or gallop appreciated; no JVD; 2+ pretibial edema Abdomen- + BS, soft, nontender Extremities- no cyanosis; no right calf tenderness; left leg bandaged Neuro- alert, oriented Skin- warm and dry; left leg bandaged . Laboratory Results: Last 24 Hours Test 03/14/17 08:08 03/14/17 11:52 Prothrombin Time 33.5 SECONDS Prothromb Time International Ratio 3.3 Sodium Level 142 mmol/L Potassium Level 3.6 mmol/L Chloride Level 108 mmol/L Carbon Dioxide Level 26 mmol/L Anion Gap 8.0 mmol/L Blood Urea Nitrogen 14 mg/dl Creatinine 0.76 mg/dl Est Creatinine Clear Calc Drug Dose 64.6 ml/min Estimated GFR () 80.6 Estimated GFR (Non- 69.5 BUN/Creatinine Ratio 18.7 Random Glucose 100 mg/dl Calcium Level 8.8 mg/dl Vancomycin Level Trough 18.5 mcg/ml Assessment & Plan CELLULITIS LEFT LOWER EXTREMITY Recurrent cellulitis. Underlying venous stasis ulcers. ID consulted. Receiving IV vancomycin and piperacillin / tazobactam. CHRONIC ATRIAL FIBRILLATION Rate controlled on metoprolol. Anticoagulated with warfarin. CHRONIC DIASTOLIC CHF History of chronic left ventricular diastolic heart failure. Has chronic lower extremity lymphedema which is refractory to diuretic therapy. Compensated. Continue furosemide. Follow weights, labs. LYMPHEDEMA Diuretic therapy with caution to avoid diuresis. Elevated lower extremities when able. Outpatient follow-up with lymphedema clinic when able. HYPERTENSION Continue metoprolol and lisinopril. GERD Continue ranitidine. DIARRHEA Check stools for C diff. VTE PROPHYLAXIS On warfarin with therapeutic INR. Ambulate as able. DISPOSITION To be determined. Family Medicine follow-up with Dr. Munoz. . Current Inpatient Medications: Current Inpatient Medications Medications (Trade) Dose Ordered Sig/Ariela Route Start Time Stop Time Status Last Admin Dose Admin Acetaminophen (Tylenol Tab) 650 mg Q4H PRN PO 03/12/17 15:45 04/11/17 15:44 Ondansetron HCl (Zofran Inj) 4 mg Q6H PRN IV 03/12/17 15:45 04/11/17 15:44 Miscellaneous Information (Consult) 1 ea UD PRN N/A 03/12/17 16:00 04/11/17 15:59 Miscellaneous Information (Consult) 1 ea UD PRN N/A 03/12/17 16:00 04/11/17 15:59 Cholecalciferol (Vitamin D Tab) 1,000 inter.unit DAILY PO 03/13/17 08:00 04/12/17 08:59 03/14/17 07:58 1,000 INTER.UNIT Docusate Sodium (coLACE CAP) 100 mg DAILY PRN PO 03/12/17 16:00 04/11/17 15:59 03/13/17 08:10 100 MG Furosemide (Lasix Tab) 40 mg DAILY PO 03/13/17 08:00 04/12/17 08:59 03/13/17 08:10 40 MG Lisinopril (Zestril Tab) 10 mg DAILY PO 03/13/17 08:00 04/12/17 08:59 03/14/17 07:58 10 MG Magnesium Oxide (Mag-Ox Tab) 400 mg DAILY PO 03/13/17 08:00 04/12/17 08:59 03/14/17 07:58 400 MG Metoprolol Succinate (Toprol Xl Tab) 50 mg DAILY PO 03/13/17 08:00 04/12/17 08:59 03/14/17 07:59 50 MG Nystatin (Mycostatin Powder) 1 appln TID EXT 03/12/17 20:00 04/11/17 20:59 03/14/17 19:07 1 APPLN Potassium Chloride (Klor-Con Tab) 20 meq DAILY PO 03/13/17 08:00 04/12/17 08:59 03/13/17 08:09 20 MEQ Ranitidine HCl (zANTac TAB) 150 mg DAILY PO 03/13/17 08:00 04/12/17 08:59 03/14/17 07:58 150 MG Ferrous Sulfate (Feosol Tab) 325 mg DAILY PO 03/13/17 08:00 04/12/17 08:59 03/14/17 07:59 325 MG Piperacillin Sod/ Tazobactam Sod 4.5 gm/Dextrose 120 ml @ 30 mls/hr Q8H IV 03/13/17 02:00 03/22/17 19:59 03/14/17 19:00 30 MLS/HR Warfarin Sodium (Coumadin Tab) 2.5 mg SuTuThSa@1999 PO 03/13/17 20:00 04/12/17 15:59 03/13/17 19:07 2.5 MG Warfarin Sodium (Coumadin Tab) 5 mg MoWeFr@1999 PO 03/14/17 20:00 04/11/17 15:59 Vancomycin HCl 1500 mg/Sodium Chloride 530 ml @ 200 mls/hr Q16H IV 03/15/17 06:00 03/22/17 23:59
[2017-03-14 23:43] VITALS: BP 119/71; PULSE 51; TEMP 36.6; O2SAT 94
[2017-03-15 00:03] VITALS: BP 178/83; PULSE 85; TEMP 36.7; O2SAT 94
[2017-03-15] MEDS: PIPERACILL/TAZOBAC IV 4.5 GM in DEXTROSE 5% 100ML 100 ML IV SCH ×3 (02:07→17:39)
[2017-03-15 02:14] VITALS: BP 145/85; PULSE 99
[2017-03-15] MEDS ORDERED: VANCOMYCIN INJ 1,500 MG in SODIUM CHLORIDE 0.9% 500ML 500 ML IV SCH (06:00)
[2017-03-15 07:54] LABS: HEMATOCRIT 35.5 % (37-47); HEMOGLOBIN 11.3 g/dL (12.0-16.0); MEAN CELL VOLUME 85.1 fL (80-100); MEAN CORPUSCULAR HEMOGLOBIN 27.1 pg (25-34); MEAN CORPUSCULAR HGB CONC 31.8 g/dl (32-36); PLATELET COUNT 233 K/uL (130-400); RED CELL DISTRIBUTION WIDTH CV 16.5 % (11.5-14.5); RED CELL DISTRIBUTION WIDTH SD 51.1 fL (36.4-46.3); WHITE BLOOD COUNT 8.29 K/uL (4.8-10.8)
[2017-03-15 07:55] LABS: INR 2.6 (0.9-1.1)
[2017-03-15 07:59] VITALS: BP 149/83; PULSE 77; TEMP 36.4; O2SAT 98
[2017-03-15] MEDS: POTASSIUM CHLORIDE 20 MEQ TABCR PO SCH (08:00)
[2017-03-15] MEDS: FUROSEMIDE 40 MG TAB PO SCH (08:00)
[2017-03-15] MEDS: NYSTATIN POWDER 15GM BTL EXT SCH ×3 (08:16→21:02)
[2017-03-15] MEDS: LISINOPRIL 10 MG TAB PO SCH (08:16)
[2017-03-15] MEDS: FERROUS SULFATE 325 MG TAB PO SCH (08:16)
[2017-03-15] MEDS: METOPROLOL SUCC 50MG EXT REL TAB PO SCH (08:16)
[2017-03-15] MEDS: MAGNESIUM OXIDE 400 MG TAB PO SCH (08:17)
[2017-03-15] MEDS: RANITIDINE HCL 150 MG TAB PO SCH (08:17)
[2017-03-15] MEDS: CHOLECALCIFEROL 1000 INTER.UNIT TAB PO SCH (08:17)
[2017-03-15 08:19] LABS: CALCIUM 8.6 mg/dl (8.5-10.1); CREATININE 0.82 mg/dl (0.60-1.20); POTASSIUM 3.6 mmol/L (3.5-5.1)
[2017-03-15 15:23] VITALS: BP 114/76; PULSE 73; TEMP 36.8; O2SAT 95
--- NOTE | 2017-03-15 19:56 | Progress Note ---
Medicine Progress Note Date & Time of Visit: Mar 15, 2017 at 16:20 . Subjective CC: Follow-up visit for cellulitis LLE and other problems. HPI: Afebrile. Less discomfort LLE. Still having loose stools. No abdominal pain, nausea, vomiting. Daughter visiting. ROS: General- no fever, no chills Resp- pulmonary status at baseline, chronic cough and dyspnea Cardiac- no chest pain, no edema GI- as noted above in HPI - chronic urinary incontinence; no dysuria . Objective Last 8 Hrs Date Time Temp Pulse Resp B/P (MAP) Pulse Ox O2 Delivery O2 Flow Rate FiO2 03/15/17 16:00 Room Air 03/15/17 15:23 36.8 73 20 114/76 (89) 95 Room Air Physical Exam: General- no distress Lungs- clear to auscultation; no respiratory distress Cardiovascular- RRR, no murmur or gallop appreciated; no JVD; 3+ lymphedema lower extremities Abdomen- + BS, soft, nontender Extremities- no cyanosis; no right calf tenderness; left leg bandaged Neuro- alert, oriented Skin- warm and dry; left leg bandaged . Laboratory Results: Last 24 Hours Test 03/15/17 07:20 White Blood Count 8.29 K/uL Red Blood Count 4.17 M/uL Hemoglobin 11.3 g/dL Hematocrit 35.5 % Mean Corpuscular Volume 85.1 fL Mean Corpuscular Hemoglobin 27.1 pg Mean Corpuscular Hemoglobin Concent 31.8 g/dl RDW Standard Deviation 51.1 fL RDW Coefficient of Variation 16.5 % Platelet Count 233 K/uL Mean Platelet Volume 10.0 fL Prothrombin Time 26.8 SECONDS Prothromb Time International Ratio 2.6 Sodium Level 146 mmol/L Potassium Level 3.6 mmol/L Chloride Level 112 mmol/L Carbon Dioxide Level 27 mmol/L Anion Gap 8.0 mmol/L Blood Urea Nitrogen 13 mg/dl Creatinine 0.82 mg/dl Est Creatinine Clear Calc Drug Dose 59.9 ml/min Estimated GFR () 73.5 Estimated GFR (Non- 63.4 BUN/Creatinine Ratio 15.6 Random Glucose 101 mg/dl Calcium Level 8.6 mg/dl Date/Time Source Procedure Growth Status 03/15/17 01:10 Stool C.difficile Toxin B Gene (PCR) - Final No C. difficile toxin B gene detected Complete Assessment & Plan CELLULITIS LEFT LOWER EXTREMITY Recurrent cellulitis. Underlying venous stasis ulcers. ID consulted. Wound culture growing MSSA and Pseudomonas aeruginosa. Receiving IV vancomycin and piperacillin / tazobactam. Further management per ID. CHRONIC ATRIAL FIBRILLATION Rate controlled on metoprolol. Anticoagulated with warfarin. CHRONIC DIASTOLIC CHF History of chronic left ventricular diastolic heart failure. Has chronic lower extremity lymphedema which is refractory to diuretic therapy. Compensated. Continue furosemide. Follow weights, labs. LYMPHEDEMA Diuretic therapy with caution to avoid excessive diuresis. Elevated lower extremities when able. HYPERTENSION Continue metoprolol and lisinopril. GERD Continue ranitidine. DIARRHEA Stools neg for C diff. VTE PROPHYLAXIS On warfarin with therapeutic INR. Ambulate as able. DISPOSITION To be determined. Family Medicine follow-up with Dr. Munoz. . Current Inpatient Medications: Current Inpatient Medications Medications (Trade) Dose Ordered Sig/Ariela Route Start Time Stop Time Status Last Admin Dose Admin Acetaminophen (Tylenol Tab) 650 mg Q4H PRN PO 03/12/17 15:45 04/11/17 15:44 Ondansetron HCl (Zofran Inj) 4 mg Q6H PRN IV 03/12/17 15:45 04/11/17 15:44 Miscellaneous Information (Consult) 1 ea UD PRN N/A 03/12/17 16:00 04/11/17 15:59 Cholecalciferol (Vitamin D Tab) 1,000 inter.unit DAILY PO 03/13/17 08:00 04/12/17 08:59 03/15/17 08:17 1,000 INTER.UNIT Docusate Sodium (coLACE CAP) 100 mg DAILY PRN PO 03/12/17 16:00 04/11/17 15:59 03/13/17 08:10 100 MG Furosemide (Lasix Tab) 40 mg DAILY PO 03/13/17 08:00 04/12/17 08:59 03/13/17 08:10 40 MG Lisinopril (Zestril Tab) 10 mg DAILY PO 03/13/17 08:00 04/12/17 08:59 03/15/17 08:16 10 MG Magnesium Oxide (Mag-Ox Tab) 400 mg DAILY PO 03/13/17 08:00 04/12/17 08:59 1/18/18 08:17 400 MG Metoprolol Succinate (Toprol Xl Tab) 50 mg DAILY PO 03/13/17 08:00 04/12/17 08:59 03/15/17 08:16 50 MG Nystatin (Mycostatin Powder) 1 appln TID EXT 03/12/17 20:00 04/11/17 20:59 03/15/17 14:44 1 APPLN Potassium Chloride (Klor-Con Tab) 20 meq DAILY PO 03/13/17 08:00 04/12/17 08:59 03/13/17 08:09 20 MEQ Ranitidine HCl (zANTac TAB) 150 mg DAILY PO 03/13/17 08:00 04/12/17 08:59 03/15/17 08:17 150 MG Ferrous Sulfate (Feosol Tab) 325 mg DAILY PO 03/13/17 08:00 04/12/17 08:59 03/15/17 08:16 325 MG Piperacillin Sod/ Tazobactam Sod 4.5 gm/Dextrose 120 ml @ 30 mls/hr Q8H IV 03/13/17 02:00 03/22/17 19:59 03/15/17 17:39 30 MLS/HR Warfarin Sodium (Coumadin Tab) 2.5 mg SuTuThSa@1999 PO 03/13/17 20:00 04/12/17 15:59 03/13/17 19:07 2.5 MG Warfarin Sodium (Coumadin Tab) 5 mg MoWeFr@1999 PO 03/14/17 20:00 04/11/17 15:59
[2017-03-15] MEDS: WARFARIN SOD 2.5 MG TAB PO SCH (21:04)
[2017-03-15 23:42] VITALS: BP 136/76; PULSE 79; TEMP 36.4; O2SAT 97
[2017-03-16] MEDS: PIPERACILL/TAZOBAC IV 4.5 GM in DEXTROSE 5% 100ML 100 ML IV SCH ×3 (02:04→17:28)
[2017-03-16] MEDS: NYSTATIN POWDER 15GM BTL EXT SCH ×3 (07:44→20:00)
[2017-03-16] MEDS: FERROUS SULFATE 325 MG TAB PO SCH (07:44)
[2017-03-16] MEDS: METOPROLOL SUCC 50MG EXT REL TAB PO SCH (07:44)
[2017-03-16] MEDS: CHOLECALCIFEROL 1000 INTER.UNIT TAB PO SCH (07:45)
[2017-03-16] MEDS: LISINOPRIL 10 MG TAB PO SCH (07:45)
[2017-03-16] MEDS: DOCUSATE SODIUM 100 MG CAP PO PRN (07:45)
[2017-03-16] MEDS: POTASSIUM CHLORIDE 20 MEQ TABCR PO SCH (07:45)
[2017-03-16] MEDS: MAGNESIUM OXIDE 400 MG TAB PO SCH (07:46)
[2017-03-16] MEDS: FUROSEMIDE 40 MG TAB PO SCH (07:46)
[2017-03-16] MEDS: RANITIDINE HCL 150 MG TAB PO SCH (07:46)
[2017-03-16 08:00] VITALS: O2SAT 97
[2017-03-16 08:04] VITALS: BP 135/81; PULSE 72; TEMP 36.3; O2SAT 97
[2017-03-16 10:12] LABS: INR 2.3 (0.9-1.1)
[2017-03-16 10:28] LABS: CALCIUM 8.8 mg/dl (8.5-10.1); CREATININE 1.07 mg/dl (0.60-1.20); POTASSIUM 3.5 mmol/L (3.5-5.1)
[2017-03-16 14:37] VITALS: BP 142/95; PULSE 85; TEMP 36.6; O2SAT 97
[2017-03-16] MEDS: WARFARIN SOD 5 MG TAB PO SCH (20:37)
--- NOTE | 2017-03-16 21:08 | Progress Note ---
Medicine Progress Note Date & Time of Visit: Mar 16, 2017 at 10:50 . Subjective CC: Follow-up visit for cellulitis LLE and other problems. HPI: Afebrile. Less discomfort LLE. Still having loose stools, but not as frequent. No abdominal pain, nausea, vomiting. ROS: General- no fever, no chills Resp- pulmonary status at baseline, chronic cough and dyspnea Cardiac- no chest pain, no edema GI- as noted above in HPI - chronic urinary incontinence; no dysuria . Objective Last 8 Hrs Date Time Temp Pulse Resp B/P (MAP) Pulse Ox O2 Delivery O2 Flow Rate FiO2 03/16/17 14:37 36.6 85 18 142/95 (111) 97 Physical Exam: General- no distress Lungs- clear to auscultation; no respiratory distress Cardiovascular- RRR, no murmur or gallop appreciated; no JVD; 3-4+ lymphedema lower extremities Abdomen- + BS, soft, nontender Extremities- no cyanosis; no right calf tenderness; left leg bandaged Neuro- alert, oriented Skin- warm and dry; left leg unbandaged, moderate erythema, venous stasis ulceration . Laboratory Results: Last 24 Hours Test 03/16/17 09:16 Prothrombin Time 23.4 SECONDS Prothromb Time International Ratio 2.3 Sodium Level 141 mmol/L Potassium Level 3.5 mmol/L Chloride Level 108 mmol/L Carbon Dioxide Level 27 mmol/L Anion Gap 6.0 mmol/L Blood Urea Nitrogen 12 mg/dl Creatinine 1.07 mg/dl Est Creatinine Clear Calc Drug Dose 45.9 ml/min Estimated GFR () 53.3 Estimated GFR (Non- 46.0 BUN/Creatinine Ratio 11.6 Random Glucose 163 mg/dl Calcium Level 8.8 mg/dl Assessment & Plan CELLULITIS LEFT LOWER EXTREMITY Recurrent cellulitis. Underlying venous stasis ulcers. ID consulted. Wound culture growing MSSA and Pseudomonas aeruginosa. Receiving IV vancomycin and piperacillin / tazobactam. Further management per ID. CHRONIC ATRIAL FIBRILLATION Rate controlled on metoprolol. Anticoagulated with warfarin. CHRONIC DIASTOLIC CHF History of chronic left ventricular diastolic heart failure. Has chronic lower extremity lymphedema which is refractory to diuretic therapy. Compensated. Continue furosemide. Follow weights, labs. LYMPHEDEMA Diuretic therapy with caution to avoid excessive diuresis. Elevated lower extremities when able. HYPERTENSION Continue metoprolol and lisinopril. GERD Continue ranitidine. DIARRHEA Stools neg for C diff. VTE PROPHYLAXIS On warfarin with therapeutic INR. Ambulate as able. DISPOSITION To be determined. Family Medicine follow-up with Dr. Munoz. . Current Inpatient Medications: Current Inpatient Medications Medications (Trade) Dose Ordered Sig/Ariela Route Start Time Stop Time Status Last Admin Dose Admin Acetaminophen (Tylenol Tab) 650 mg Q4H PRN PO 03/12/17 15:45 04/11/17 15:44 Ondansetron HCl (Zofran Inj) 4 mg Q6H PRN IV 03/12/17 15:45 04/11/17 15:44 Miscellaneous Information (Consult) 1 ea UD PRN N/A 03/12/17 16:00 04/11/17 15:59 Cholecalciferol (Vitamin D Tab) 1,000 inter.unit DAILY PO 03/13/17 08:00 04/12/17 08:59 03/16/17 07:45 1,000 INTER.UNIT Docusate Sodium (coLACE CAP) 100 mg DAILY PRN PO 03/12/17 16:00 04/11/17 15:59 03/16/17 07:45 100 MG Furosemide (Lasix Tab) 40 mg DAILY PO 03/13/17 08:00 04/12/17 08:59 03/16/17 07:46 40 MG Lisinopril (Zestril Tab) 10 mg DAILY PO 03/13/17 08:00 04/12/17 08:59 03/16/17 07:45 10 MG Magnesium Oxide (Mag-Ox Tab) 400 mg DAILY PO 03/13/17 08:00 04/12/17 08:59 03/16/17 07:46 400 MG Metoprolol Succinate (Toprol Xl Tab) 50 mg DAILY PO 03/13/17 08:00 04/12/17 08:59 03/16/17 07:44 50 MG Nystatin (Mycostatin Powder) 1 appln TID EXT 03/12/17 20:00 04/11/17 20:59 03/16/17 13:55 1 APPLN Potassium Chloride (Klor-Con Tab) 20 meq DAILY PO 03/13/17 08:00 04/12/17 08:59 03/16/17 07:45 20 MEQ Ranitidine HCl (zANTac TAB) 150 mg DAILY PO 03/13/17 08:00 04/12/17 08:59 03/16/17 07:46 150 MG Ferrous Sulfate (Feosol Tab) 325 mg DAILY PO 03/13/17 08:00 04/12/17 08:59 03/16/17 07:44 325 MG Piperacillin Sod/ Tazobactam Sod 4.5 gm/Dextrose 120 ml @ 30 mls/hr Q8H IV 03/13/17 02:00 03/22/17 19:59 03/16/17 17:28 30 MLS/HR Warfarin Sodium (Coumadin Tab) 2.5 mg SuTuThSa@1999 PO 03/13/17 20:00 04/12/17 15:59 03/15/17 21:04 2.5 MG Warfarin Sodium (Coumadin Tab) 5 mg MoWeFr@1999 PO 03/14/17 20:00 04/11/17 15:59 03/16/17 20:37 5 MG Diphenoxylate HCl/ Atropine (Lomotil Tab) 1 tab Q12H PRN PO 03/16/17 04:30 04/15/17 04:29
[2017-03-16 23:19] VITALS: BP 157/87; PULSE 80; TEMP 36.9; O2SAT 96
[2017-03-17] MEDS: PIPERACILL/TAZOBAC IV 4.5 GM in DEXTROSE 5% 100ML 100 ML IV SCH ×3 (03:12→18:51)
[2017-03-17 07:21] VITALS: BP 138/80; PULSE 76; TEMP 36.8; O2SAT 94
[2017-03-17] MEDS ORDERED: VANCOMYCIN TROUGH ONE (07:30)
[2017-03-17] MEDS: NYSTATIN POWDER 15GM BTL EXT SCH ×3 (07:31→20:31)
[2017-03-17] MEDS: FUROSEMIDE 40 MG TAB PO SCH (07:32)
[2017-03-17] MEDS: POTASSIUM CHLORIDE 20 MEQ TABCR PO SCH (07:33)
[2017-03-17] MEDS: LISINOPRIL 10 MG TAB PO SCH (07:36)
[2017-03-17] MEDS: MAGNESIUM OXIDE 400 MG TAB PO SCH (07:36)
[2017-03-17] MEDS: CHOLECALCIFEROL 1000 INTER.UNIT TAB PO SCH (07:37)
[2017-03-17 08:01] VITALS: O2SAT 94
[2017-03-17 08:04] LABS: INR 2.6 (0.9-1.1)
[2017-03-17 08:24] LABS: CALCIUM 8.8 mg/dl (8.5-10.1); CREATININE 0.92 mg/dl (0.60-1.20); POTASSIUM 3.6 mmol/L (3.5-5.1)
[2017-03-17] MEDS: FERROUS SULFATE 325 MG TAB PO SCH (08:32)
[2017-03-17] MEDS: RANITIDINE HCL 150 MG TAB PO SCH (08:33)
[2017-03-17] MEDS: METOPROLOL SUCC 50MG EXT REL TAB PO SCH (08:33)
[2017-03-17 15:06] VITALS: BP 145/83; PULSE 91; TEMP 36.8; O2SAT 96
[2017-03-17 15:30] VITALS: O2SAT 96
--- NOTE | 2017-03-17 19:12 | Progress Note ---
Medicine Progress Note Date & Time of Visit: Mar 17, 2017 at ~ 10:30 . Subjective CC: Follow-up visit for cellulitis LLE and other problems. HPI: Afebrile. Less discomfort LLE. Diarrhea improved. No abdominal pain, nausea, vomiting. ROS: General- no fever, no chills Resp- pulmonary status at baseline Cardiac- no chest pain, no edema GI- as noted above in HPI - chronic urinary incontinence; no dysuria . Objective Last 8 Hrs Date Time Temp Pulse Resp B/P (MAP) Pulse Ox O2 Delivery O2 Flow Rate FiO2 03/17/17 15:30 96 Room Air 03/17/17 15:06 36.8 91 20 145/83 (103) 96 Physical Exam: General- lying in bed; no distress Lungs- clear to auscultation; no respiratory distress Cardiovascular- RRR, no murmur or gallop appreciated; no JVD; 3-4+ lymphedema lower extremities Abdomen- + BS, soft, nontender Extremities- no cyanosis; no right calf tenderness; left leg bandaged Neuro- alert, oriented Skin- warm and dry; left leg unbandaged, moderate erythema, venous stasis ulceration . Laboratory Results: Last 24 Hours Test 03/17/17 07:33 Prothrombin Time 27.0 SECONDS Prothromb Time International Ratio 2.6 Sodium Level 142 mmol/L Potassium Level 3.6 mmol/L Chloride Level 109 mmol/L Carbon Dioxide Level 24 mmol/L Anion Gap 10.0 mmol/L Blood Urea Nitrogen 14 mg/dl Creatinine 0.92 mg/dl Est Creatinine Clear Calc Drug Dose 53.4 ml/min Estimated GFR () 64.0 Estimated GFR (Non- 55.2 BUN/Creatinine Ratio 15.1 Random Glucose 98 mg/dl Calcium Level 8.8 mg/dl Assessment & Plan CELLULITIS LEFT LOWER EXTREMITY Recurrent cellulitis. Underlying venous stasis ulcers. ID consulted. Wound culture growing MSSA and Pseudomonas aeruginosa. Receiving IV vancomycin and piperacillin / tazobactam. Further management per ID. CHRONIC ATRIAL FIBRILLATION Rate controlled on metoprolol. Anticoagulated with warfarin. CHRONIC DIASTOLIC CHF History of chronic left ventricular diastolic heart failure. Has chronic lower extremity lymphedema which is refractory to diuretic therapy. Compensated. Continue furosemide. Follow weights, labs. LYMPHEDEMA Diuretic therapy with caution to avoid excessive diuresis. Elevated lower extremities when able. HYPERTENSION Continue metoprolol and lisinopril. GERD Continue ranitidine. DIARRHEA Stools neg for C diff. VTE PROPHYLAXIS On warfarin with therapeutic INR. Ambulate as able. DISPOSITION To be determined. Family Medicine follow-up with Dr. Munoz. . Current Inpatient Medications: Current Inpatient Medications Medications (Trade) Dose Ordered Sig/Ariela Route Start Time Stop Time Status Last Admin Dose Admin Acetaminophen (Tylenol Tab) 650 mg Q4H PRN PO 03/12/17 15:45 04/11/17 15:44 Ondansetron HCl (Zofran Inj) 4 mg Q6H PRN IV 03/12/17 15:45 04/11/17 15:44 Miscellaneous Information (Consult) 1 ea UD PRN N/A 03/12/17 16:00 04/11/17 15:59 Cholecalciferol (Vitamin D Tab) 1,000 inter.unit DAILY PO 03/13/17 08:00 04/12/17 08:59 03/17/17 07:37 1,000 INTER.UNIT Docusate Sodium (coLACE CAP) 100 mg DAILY PRN PO 03/12/17 16:00 04/11/17 15:59 03/16/17 07:45 100 MG Furosemide (Lasix Tab) 40 mg DAILY PO 03/13/17 08:00 04/12/17 08:59 03/17/17 07:32 40 MG Lisinopril (Zestril Tab) 10 mg DAILY PO 03/13/17 08:00 04/12/17 08:59 03/17/17 07:36 10 MG Magnesium Oxide (Mag-Ox Tab) 400 mg DAILY PO 03/13/17 08:00 04/12/17 08:59 03/17/17 07:36 400 MG Metoprolol Succinate (Toprol Xl Tab) 50 mg DAILY PO 03/13/17 08:00 04/12/17 08:59 03/17/17 08:33 50 MG Nystatin (Mycostatin Powder) 1 appln TID EXT 03/12/17 20:00 04/11/17 20:59 03/17/17 07:31 1 APPLN Potassium Chloride (Klor-Con Tab) 20 meq DAILY PO 03/13/17 08:00 04/12/17 08:59 03/17/17 07:33 20 MEQ Ranitidine HCl (zANTac TAB) 150 mg DAILY PO 03/13/17 08:00 04/12/17 08:59 03/17/17 08:33 150 MG Ferrous Sulfate (Feosol Tab) 325 mg DAILY PO 03/13/17 08:00 04/12/17 08:59 03/17/17 08:32 325 MG Piperacillin Sod/ Tazobactam Sod 4.5 gm/Dextrose 120 ml @ 30 mls/hr Q8H IV 03/13/17 02:00 03/22/17 19:59 03/17/17 18:51 30 MLS/HR Warfarin Sodium (Coumadin Tab) 2.5 mg SuTuThSa@1999 PO 03/13/17 20:00 04/12/17 15:59 03/15/17 21:04 2.5 MG Warfarin Sodium (Coumadin Tab) 5 mg MoWeFr@1999 PO 03/14/17 20:00 04/11/17 15:59 03/16/17 20:37 5 MG Diphenoxylate HCl/ Atropine (Lomotil Tab) 1 tab Q12H PRN PO 03/16/17 04:30 04/15/17 04:29
[2017-03-17] MEDS: WARFARIN SOD 2.5 MG TAB PO SCH (20:31)
[2017-03-17 23:41] VITALS: BP 136/74; PULSE 83; TEMP 36.7; O2SAT 94
[2017-03-18] MEDS: PIPERACILL/TAZOBAC IV 4.5 GM in DEXTROSE 5% 100ML 100 ML IV SCH ×3 (01:58→17:44)
[2017-03-18 06:41] LABS: INR 2.8 (0.9-1.1)
[2017-03-18 06:56] LABS: CALCIUM 8.4 mg/dl (8.5-10.1); CREATININE 0.91 mg/dl (0.60-1.20); POTASSIUM 3.4 mmol/L (3.5-5.1)
[2017-03-18 07:09] VITALS: BP 118/72; PULSE 69; TEMP 36.6; O2SAT 96
[2017-03-18] MEDS: FUROSEMIDE 40 MG TAB PO SCH (08:06)
[2017-03-18] MEDS: MAGNESIUM OXIDE 400 MG TAB PO SCH (08:07)
[2017-03-18] MEDS: LISINOPRIL 10 MG TAB PO SCH (08:07)
[2017-03-18] MEDS: FERROUS SULFATE 325 MG TAB PO SCH (08:08)
[2017-03-18] MEDS: RANITIDINE HCL 150 MG TAB PO SCH (08:08)
[2017-03-18] MEDS: METOPROLOL SUCC 50MG EXT REL TAB PO SCH (08:08)
[2017-03-18] MEDS: CHOLECALCIFEROL 1000 INTER.UNIT TAB PO SCH (08:08)
[2017-03-18] MEDS: NYSTATIN POWDER 15GM BTL EXT SCH ×3 (08:09→19:28)
[2017-03-18] MEDS: POTASSIUM CHLORIDE 20 MEQ TABCR PO SCH (08:10)
[2017-03-18 08:30] VITALS: O2SAT 96
[2017-03-18] MEDS ORDERED: POTASSIUM CHLORIDE 20 MEQ TABCR PO ONE (09:00)
[2017-03-18] MEDS: DIPHENOXYLATE/ATROPINE 2.5/0.025MG TAB PO PRN (14:06)
[2017-03-18 15:30] VITALS: BP 164/86; PULSE 79; TEMP 36.6; O2SAT 96
[2017-03-18] MEDS: WARFARIN SOD 2.5 MG TAB PO SCH (19:28)
--- NOTE | 2017-03-18 21:05 | Progress Note ---
Medicine Progress Note Date & Time of Visit: Mar 18, 2017 at 10:10 . Subjective CC: Follow-up visit for cellulitis LLE and other problems. HPI: Afebrile. No discomfort LLE. Still having loose stools. No abdominal pain, nausea, vomiting. ROS: General- no fever, no chills Resp- pulmonary status at baseline CAM Cardiac- no chest pain, no edema GI- as noted above in HPI - chronic urinary incontinence; no dysuria . Objective Last 8 Hrs Date Time Temp Pulse Resp B/P (MAP) Pulse Ox O2 Delivery O2 Flow Rate FiO2 03/18/17 16:00 Room Air 03/18/17 15:30 36.6 79 20 164/86 (112) 96 Physical Exam: General- lying in bed; no distress Lungs- clear to auscultation; no respiratory distress Cardiovascular- RRR, no murmur or gallop appreciated; no JVD; 3-4+ lymphedema lower extremities Abdomen- + BS, soft, nontender Extremities- no cyanosis; no right calf tenderness; left leg bandaged Neuro- alert, oriented Skin- warm and dry; left leg unbandaged, moderate erythema, venous stasis ulceration . Laboratory Results: Last 24 Hours Test 03/18/17 05:36 03/18/17 05:37 Prothrombin Time 29.3 SECONDS Prothromb Time International Ratio 2.8 Sodium Level 145 mmol/L Potassium Level 3.4 mmol/L Chloride Level 109 mmol/L Carbon Dioxide Level 27 mmol/L Anion Gap 10.0 mmol/L Blood Urea Nitrogen 14 mg/dl Creatinine 0.91 mg/dl Est Creatinine Clear Calc Drug Dose 54.0 ml/min Estimated GFR () 64.8 Estimated GFR (Non- 55.9 BUN/Creatinine Ratio 15.3 Random Glucose 107 mg/dl Calcium Level 8.4 mg/dl Assessment & Plan CELLULITIS LEFT LOWER EXTREMITY Recurrent cellulitis. Underlying venous stasis ulcers. ID consulted. Wound culture growing MSSA and Pseudomonas aeruginosa. Receiving IV vancomycin and piperacillin / tazobactam. Further management per ID. CHRONIC ATRIAL FIBRILLATION Rate controlled on metoprolol. Anticoagulated with warfarin. CHRONIC DIASTOLIC CHF History of chronic left ventricular diastolic heart failure. Has chronic lower extremity lymphedema which is refractory to diuretic therapy. Compensated. Hold furosemide tomorrow pending reassessment in light of frequent loose stools. Follow weights, labs. LYMPHEDEMA Diuretic therapy with caution to avoid excessive diuresis. Elevated lower extremities when able. HYPERTENSION Continue metoprolol and lisinopril. GERD Continue ranitidine. DIARRHEA Stools neg for C diff. VTE PROPHYLAXIS On warfarin with therapeutic INR. Ambulate as able. DISPOSITION To be determined once plan for antibiotics after DC established. Family Medicine follow-up with Dr. Munoz. . Current Inpatient Medications: Current Inpatient Medications Medications (Trade) Dose Ordered Sig/Ariela Route Start Time Stop Time Status Last Admin Dose Admin Acetaminophen (Tylenol Tab) 650 mg Q4H PRN PO 03/12/17 15:45 04/11/17 15:44 Ondansetron HCl (Zofran Inj) 4 mg Q6H PRN IV 03/12/17 15:45 04/11/17 15:44 Miscellaneous Information (Consult) 1 ea UD PRN N/A 03/12/17 16:00 04/11/17 15:59 Cholecalciferol (Vitamin D Tab) 1,000 inter.unit DAILY PO 03/13/17 08:00 04/12/17 08:59 03/18/17 08:08 1,000 INTER.UNIT Docusate Sodium (coLACE CAP) 100 mg DAILY PRN PO 03/12/17 16:00 04/11/17 15:59 03/16/17 07:45 100 MG Furosemide (Lasix Tab) 40 mg DAILY PO 03/13/17 08:00 04/12/17 08:59 Future Hold 03/18/17 08:06 40 MG Lisinopril (Zestril Tab) 10 mg DAILY PO 03/13/17 08:00 04/12/17 08:59 03/18/17 08:07 10 MG Magnesium Oxide (Mag-Ox Tab) 400 mg DAILY PO 03/13/17 08:00 04/12/17 08:59 03/18/17 08:07 400 MG Metoprolol Succinate (Toprol Xl Tab) 50 mg DAILY PO 03/13/17 08:00 04/12/17 08:59 03/18/17 08:08 50 MG Nystatin (Mycostatin Powder) 1 appln TID EXT 03/12/17 20:00 04/11/17 20:59 03/18/17 19:28 1 APPLN Potassium Chloride (Klor-Con Tab) 20 meq DAILY PO 03/13/17 08:00 04/12/17 08:59 03/18/17 08:10 20 MEQ Ranitidine HCl (zANTac TAB) 150 mg DAILY PO 03/13/17 08:00 04/12/17 08:59 03/18/17 08:08 150 MG Ferrous Sulfate (Feosol Tab) 325 mg DAILY PO 03/13/17 08:00 04/12/17 08:59 03/18/17 08:08 325 MG Piperacillin Sod/ Tazobactam Sod 4.5 gm/Dextrose 120 ml @ 30 mls/hr Q8H IV 03/13/17 02:00 03/22/17 19:59 03/18/17 17:44 30 MLS/HR Warfarin Sodium (Coumadin Tab) 2.5 mg SuTuThSa@1999 PO 03/13/17 20:00 04/12/17 15:59 03/18/17 19:28 2.5 MG Warfarin Sodium (Coumadin Tab) 5 mg MoWeFr@1999 PO 03/14/17 20:00 04/11/17 15:59 03/16/17 20:37 5 MG Diphenoxylate HCl/ Atropine (Lomotil Tab) 1 tab Q12H PRN PO 03/16/17 04:30 04/15/17 04:29 03/18/17 14:06 1 TAB
[2017-03-18 23:32] VITALS: BP 145/73; PULSE 86; TEMP 36.8; O2SAT 92
[2017-03-19] MEDS: PIPERACILL/TAZOBAC IV 4.5 GM in DEXTROSE 5% 100ML 100 ML IV SCH ×3 (02:00→18:07)
[2017-03-19 07:01] VITALS: BP 132/63; PULSE 60; TEMP 36.6; O2SAT 92
[2017-03-19 07:07] LABS: INR 2.9 (0.9-1.1)
[2017-03-19 07:28] LABS: CALCIUM 8.6 mg/dl (8.5-10.1); CREATININE 1.31 mg/dl (0.60-1.20); POTASSIUM 3.4 mmol/L (3.5-5.1)
[2017-03-19] MEDS: POTASSIUM CHLORIDE 20 MEQ TABCR PO SCH (08:07)
[2017-03-19] MEDS: MAGNESIUM OXIDE 400 MG TAB PO SCH (08:08)
[2017-03-19] MEDS: LISINOPRIL 10 MG TAB PO SCH (08:08)
[2017-03-19] MEDS: RANITIDINE HCL 150 MG TAB PO SCH (08:08)
[2017-03-19] MEDS: FERROUS SULFATE 325 MG TAB PO SCH (08:08)
[2017-03-19] MEDS: CHOLECALCIFEROL 1000 INTER.UNIT TAB PO SCH (08:08)
[2017-03-19] MEDS: METOPROLOL SUCC 50MG EXT REL TAB PO SCH (08:08)
[2017-03-19] MEDS: NYSTATIN POWDER 15GM BTL EXT SCH ×3 (08:09→21:44)
[2017-03-19] MEDS: DIPHENOXYLATE/ATROPINE 2.5/0.025MG TAB PO PRN (09:26)
[2017-03-19 15:59] VITALS: BP 136/75; PULSE 79; TEMP 37.2; O2SAT 94
--- NOTE | 2017-03-19 19:41 | Progress Note ---
Medicine Progress Note Date & Time of Visit: Mar 19, 2017 at 19:41. Subjective CC: Follow-up visit for cellulitis LLE and other problems. HPI: Doing well. Afebrile. Mild discomfort LLE. Loose stools improved with Lomotil. No abdominal pain, nausea, vomiting. ROS: General- no fever, no chills Resp- pulmonary status with baseline CAM Cardiac- no chest pain, no edema GI- as noted above in HPI - chronic urinary incontinence . Objective Last 8 Hrs Date Time Temp Pulse Resp B/P (MAP) Pulse Ox O2 Delivery O2 Flow Rate FiO2 03/19/17 16:00 Room Air 03/19/17 15:59 37.2 79 18 136/75 (95) 94 Room Air Physical Exam: General- lying in bed; no distress Lungs- clear to auscultation; no respiratory distress Cardiovascular- RRR, no murmur or gallop appreciated; no JVD; 3-4+ lymphedema lower extremities Abdomen- + BS, soft, nontender Extremities- no cyanosis; no right calf tenderness; left leg bandaged Neuro- alert, oriented Skin- warm and dry . Laboratory Results: Last 24 Hours Test 03/19/17 06:32 Prothrombin Time 29.5 SECONDS Prothromb Time International Ratio 2.9 Sodium Level 142 mmol/L Potassium Level 3.4 mmol/L Chloride Level 107 mmol/L Carbon Dioxide Level 31 mmol/L Anion Gap 4.0 mmol/L Blood Urea Nitrogen 17 mg/dl Creatinine 1.31 mg/dl Est Creatinine Clear Calc Drug Dose 37.5 ml/min Estimated GFR () 41.7 Estimated GFR (Non- 36.0 BUN/Creatinine Ratio 12.8 Random Glucose 97 mg/dl Calcium Level 8.6 mg/dl Assessment & Plan CELLULITIS LEFT LOWER EXTREMITY Recurrent cellulitis. Underlying venous stasis ulcers. ID consulted. Wound culture growing MSSA and Pseudomonas aeruginosa. Received IV vancomycin and piperacillin / tazobactam. Transition to oral therapy with doxycycline and levofloxacin per ID. Outpatient follow-up with [facility] CHRONIC ATRIAL FIBRILLATION Rate controlled on metoprolol. Anticoagulated with warfarin. CHRONIC DIASTOLIC CHF History of chronic left ventricular diastolic heart failure. Has chronic lower extremity lymphedema which is refractory to diuretic therapy. Compensated. Hold furosemide in light of frequent loose stools. Follow weights, labs. LYMPHEDEMA Diuretic therapy with caution to avoid excessive diuresis. Elevated lower extremities when able. HYPERTENSION Continue metoprolol and lisinopril. GERD Continue ranitidine. DIARRHEA Stools neg for C diff. VTE PROPHYLAXIS On warfarin with therapeutic INR. Ambulate as able. DISPOSITION Expected discharge to home. Family Medicine follow-up with Dr. Munoz. Follow-up with [facility]. . Current Inpatient Medications: Current Inpatient Medications Medications (Trade) Dose Ordered Sig/Ariela Route Start Time Stop Time Status Last Admin Dose Admin Acetaminophen (Tylenol Tab) 650 mg Q4H PRN PO 03/12/17 15:45 04/11/17 15:44 Ondansetron HCl (Zofran Inj) 4 mg Q6H PRN IV 03/12/17 15:45 04/11/17 15:44 Miscellaneous Information (Consult) 1 ea UD PRN N/A 03/12/17 16:00 04/11/17 15:59 Cholecalciferol (Vitamin D Tab) 1,000 inter.unit DAILY PO 03/13/17 08:00 04/12/17 08:59 03/19/17 08:08 1,000 INTER.UNIT Docusate Sodium (coLACE CAP) 100 mg DAILY PRN PO 03/12/17 16:00 04/11/17 15:59 03/16/17 07:45 100 MG Furosemide (Lasix Tab) 40 mg DAILY PO 03/13/17 08:00 04/12/17 08:59 Future Hold 03/18/17 08:06 40 MG Lisinopril (Zestril Tab) 10 mg DAILY PO 03/13/17 08:00 04/12/17 08:59 03/19/17 08:08 10 MG Magnesium Oxide (Mag-Ox Tab) 400 mg DAILY PO 03/13/17 08:00 04/12/17 08:59 03/19/17 08:08 400 MG Metoprolol Succinate (Toprol Xl Tab) 50 mg DAILY PO 03/13/17 08:00 04/12/17 08:59 03/19/17 08:08 50 MG Nystatin (Mycostatin Powder) 1 appln TID EXT 03/12/17 20:00 04/11/17 20:59 03/19/17 13:11 1 APPLN Potassium Chloride (Klor-Con Tab) 20 meq DAILY PO 03/13/17 08:00 04/12/17 08:59 03/19/17 08:07 20 MEQ Ranitidine HCl (zANTac TAB) 150 mg DAILY PO 03/13/17 08:00 04/12/17 08:59 03/19/17 08:08 150 MG Ferrous Sulfate (Feosol Tab) 325 mg DAILY PO 03/13/17 08:00 04/12/17 08:59 03/19/17 08:08 325 MG Piperacillin Sod/ Tazobactam Sod 4.5 gm/Dextrose 120 ml @ 30 mls/hr Q8H IV 03/13/17 02:00 03/22/17 19:59 03/19/17 18:07 30 MLS/HR Warfarin Sodium (Coumadin Tab) 2.5 mg SuTuThSa@1999 PO 03/13/17 20:00 04/12/17 15:59 03/18/17 19:28 2.5 MG Warfarin Sodium (Coumadin Tab) 5 mg MoWeFr@1999 PO 03/14/17 20:00 04/11/17 15:59 03/16/17 20:37 5 MG Diphenoxylate HCl/ Atropine (Lomotil Tab) 1 tab Q12H PRN PO 03/16/17 04:30 04/15/17 04:29 03/19/17 09:26 1 TAB
--- NOTE | 2017-03-19 20:50 | Infectious Disease Progress Nt ---
Progress Note Date of Service Mar 19, 2017. Subjective Pt evaluation today including: conversation w/ patient, physical exam, chart review, lab review, review of studies, conversation w/ life skills consultant, review of inpatient medication list Patient offers no new complaints today. Pain in legs controlled. No fever. Continues to tolerate antibiotics with loose stools, no significant diarrhea. All Other Systems: Reviewed and Negative Medications Current Inpatient Medications Medications (Trade) Dose Ordered Sig/Ariela Route Start Time Stop Time Status Last Admin Dose Admin Acetaminophen (Tylenol Tab) 650 mg Q4H PRN PO 03/12/17 15:45 04/11/17 15:44 Ondansetron HCl (Zofran Inj) 4 mg Q6H PRN IV 03/12/17 15:45 04/11/17 15:44 Miscellaneous Information (Consult) 1 ea UD PRN N/A 03/12/17 16:00 04/11/17 15:59 Cholecalciferol (Vitamin D Tab) 1,000 inter.unit DAILY PO 03/13/17 08:00 04/12/17 08:59 03/19/17 08:08 1,000 INTER.UNIT Docusate Sodium (coLACE CAP) 100 mg DAILY PRN PO 03/12/17 16:00 04/11/17 15:59 03/16/17 07:45 100 MG Furosemide (Lasix Tab) 40 mg DAILY PO 03/13/17 08:00 04/12/17 08:59 Future Hold 03/18/17 08:06 40 MG Lisinopril (Zestril Tab) 10 mg DAILY PO 03/13/17 08:00 04/12/17 08:59 03/19/17 08:08 10 MG Magnesium Oxide (Mag-Ox Tab) 400 mg DAILY PO 03/13/17 08:00 04/12/17 08:59 03/19/17 08:08 400 MG Metoprolol Succinate (Toprol Xl Tab) 50 mg DAILY PO 03/13/17 08:00 04/12/17 08:59 03/19/17 08:08 50 MG Nystatin (Mycostatin Powder) 1 appln TID EXT 03/12/17 20:00 04/11/17 20:59 03/19/17 13:11 1 APPLN Potassium Chloride (Klor-Con Tab) 20 meq DAILY PO 03/13/17 08:00 04/12/17 08:59 03/19/17 08:07 20 MEQ Ranitidine HCl (zANTac TAB) 150 mg DAILY PO 03/13/17 08:00 04/12/17 08:59 03/19/17 08:08 150 MG Ferrous Sulfate (Feosol Tab) 325 mg DAILY PO 03/13/17 08:00 04/12/17 08:59 03/19/17 08:08 325 MG Piperacillin Sod/ Tazobactam Sod 4.5 gm/Dextrose 120 ml @ 30 mls/hr Q8H IV 03/13/17 02:00 03/22/17 19:59 03/19/17 18:07 30 MLS/HR Warfarin Sodium (Coumadin Tab) 2.5 mg SuTuThSa@1999 PO 03/13/17 20:00 04/12/17 15:59 03/18/17 19:28 2.5 MG Warfarin Sodium (Coumadin Tab) 5 mg MoWeFr@1999 PO 03/14/17 20:00 04/11/17 15:59 03/16/17 20:37 5 MG Diphenoxylate HCl/ Atropine (Lomotil Tab) 1 tab Q12H PRN PO 03/16/17 04:30 04/15/17 04:29 03/19/17 09:26 1 TAB Objective Vital Signs Date Time Temp Pulse Resp B/P (MAP) Pulse Ox O2 Delivery O2 Flow Rate FiO2 03/19/17 16:00 Room Air 03/19/17 15:59 37.2 79 18 136/75 (95) 94 Room Air 03/19/17 08:00 Room Air 03/19/17 07:01 36.6 60 18 132/63 (86) 92 Room Air 03/18/17 23:40 Room Air 03/18/17 23:32 36.8 86 20 145/73 (97) 92 Room Air Physical Exam General Appearance: WD/WN, no apparent distress Eyes: normal inspection, sclerae normal ENT: normal ENT inspection, pharynx normal Neck: supple, no adenopathy, thyroid normal, trachea midline Respiratory/Chest: chest non-tender, lungs clear, normal breath sounds, no respiratory distress Cardiovascular: regular rate, rhythm, no gallop, no murmur Abdomen: normal bowel sounds, non tender, soft, no organomegaly Extremities: non-tender, normal capillary refill Neurologic/Psychiatric: alert, oriented x 3 Skin: normal color, no rash, + pertinent finding (Improving lower extremity erythema) Lymphatic: no adenopathy Laboratory Results Last 24 Hours Test 03/19/17 06:32 Prothrombin Time 29.5 SECONDS Prothromb Time International Ratio 2.9 Sodium Level 142 mmol/L Potassium Level 3.4 mmol/L Chloride Level 107 mmol/L Carbon Dioxide Level 31 mmol/L Anion Gap 4.0 mmol/L Blood Urea Nitrogen 17 mg/dl Creatinine 1.31 mg/dl Est Creatinine Clear Calc Drug Dose 37.5 ml/min Estimated GFR () 41.7 Estimated GFR (Non- 36.0 BUN/Creatinine Ratio 12.8 Random Glucose 97 mg/dl Calcium Level 8.6 mg/dl Assessment and Plan 87-year-old female with history of recurrent cellulitis of left lower extremity , recently on doxycycline for positive culture for MSSA, now with cellulitis of the lower leg and foot with cultures growing MSSA and Pseudomonas. Current antibiotic therapy appropriate for now, could consider transition to oral doxycycline plus levofloxacin in the next day or so, likely in the range of 10- 14 days more therapy.
[2017-03-19] MEDS: WARFARIN SOD 5 MG TAB PO SCH (21:44)
[2017-03-20 01:14] VITALS: PULSE 85; TEMP 36.6; O2SAT 96
[2017-03-20 01:48] VITALS: BP 142/81; PULSE 71
[2017-03-20] MEDS: PIPERACILL/TAZOBAC IV 4.5 GM in DEXTROSE 5% 100ML 100 ML IV SCH (01:49)
[2017-03-20] MEDS: DIPHENOXYLATE/ATROPINE 2.5/0.025MG TAB PO PRN (05:36)
[2017-03-20] MEDS: RANITIDINE HCL 150 MG TAB PO SCH (07:27)
[2017-03-20] MEDS: FERROUS SULFATE 325 MG TAB PO SCH (07:28)
[2017-03-20] MEDS: METOPROLOL SUCC 50MG EXT REL TAB PO SCH (07:28)
[2017-03-20] MEDS: CHOLECALCIFEROL 1000 INTER.UNIT TAB PO SCH (07:28)
[2017-03-20] MEDS: DOXYCYCLINE HYCLATE 100 MG CAP PO SCH ×2 (07:29→19:43)
[2017-03-20] MEDS: MAGNESIUM OXIDE 400 MG TAB PO SCH (07:29)
[2017-03-20] MEDS: LISINOPRIL 10 MG TAB PO SCH (07:30)
[2017-03-20 07:31] VITALS: BP 141/80; PULSE 72; TEMP 36.4; O2SAT 96
[2017-03-20] MEDS: POTASSIUM CHLORIDE 20 MEQ TABCR PO SCH (07:31)
[2017-03-20] MEDS: NYSTATIN POWDER 15GM BTL EXT SCH ×3 (07:31→19:43)
[2017-03-20 07:43] LABS: INR 2.9 (0.9-1.1)
[2017-03-20 08:00] VITALS: O2SAT 96
[2017-03-20 08:04] LABS: CALCIUM 9.3 mg/dl (8.5-10.1); CREATININE 1.25 mg/dl (0.60-1.20); POTASSIUM 3.3 mmol/L (3.5-5.1)
[2017-03-20] MEDS: LEVOFLOXACIN 500 MG TAB PO SCH (10:11)
[2017-03-20 15:45] VITALS: BP 155/91; PULSE 76; TEMP 36.6; O2SAT 96
--- NOTE | 2017-03-20 19:30 | Progress Note ---
Medicine Progress Note Date & Time of Visit: Mar 20, 2017 at 15:30 . Subjective CC: Follow-up visit for cellulitis LLE and other problems. HPI: Doing well. Afebrile. Mild discomfort LLE. Loose stools improved with Lomotil. No abdominal pain, nausea, vomiting. Staff expresses concern about patient's ability to transfer and ambulate. Patient indicates that sometimes her knees give out, but she is careful not to fall. She has seen Dr. Abdul in the past for apparent osteoarthritis. He advised against joint replacement because of her medical status. ROS: General- no fever, no chills Resp- pulmonary status with baseline ACM Cardiac- no chest pain, no edema GI- as noted above in HPI - chronic urinary incontinence . Objective Last 8 Hrs Date Time Temp Pulse Resp B/P (MAP) Pulse Ox O2 Delivery O2 Flow Rate FiO2 03/20/17 16:00 Room Air 03/20/17 15:45 36.6 76 18 155/91 (112) 96 Room Air Physical Exam: General- lying in bed; no distress Lungs- clear to auscultation; no respiratory distress Cardiovascular- RRR, no murmur or gallop appreciated; no JVD; 3-4+ lymphedema lower extremities Abdomen- + BS, soft, nontender Extremities- no cyanosis; no right calf tenderness; left leg bandaged Neuro- alert, oriented Skin- warm and dry . Laboratory Results: Last 24 Hours Test 03/20/17 07:14 Prothrombin Time 29.9 SECONDS Prothromb Time International Ratio 2.9 Sodium Level 141 mmol/L Potassium Level 3.3 mmol/L Chloride Level 106 mmol/L Carbon Dioxide Level 29 mmol/L Anion Gap 5.0 mmol/L Blood Urea Nitrogen 16 mg/dl Creatinine 1.25 mg/dl Est Creatinine Clear Calc Drug Dose 39.3 ml/min Estimated GFR () 44.2 Estimated GFR (Non- 38.1 BUN/Creatinine Ratio 12.6 Random Glucose 101 mg/dl Calcium Level 9.3 mg/dl Assessment & Plan CELLULITIS LEFT LOWER EXTREMITY Recurrent cellulitis. Underlying venous stasis ulcers. ID consulted. Wound culture growing MSSA and Pseudomonas aeruginosa. Received IV vancomycin and piperacillin / tazobactam. Transition to oral therapy with doxycycline and levofloxacin per ID. Outpatient follow-up with [facility]. CHRONIC ATRIAL FIBRILLATION Rate controlled on metoprolol. Anticoagulated with warfarin. CHRONIC DIASTOLIC CHF History of chronic left ventricular diastolic heart failure. Has chronic lower extremity lymphedema which is refractory to diuretic therapy. Compensated. Hold furosemide in light of frequent loose stools. Follow weights, labs. LYMPHEDEMA Diuretic therapy with caution to avoid excessive diuresis. Elevated lower extremities when able. HYPERTENSION Continue metoprolol and lisinopril. GERD Continue ranitidine. DIARRHEA Stools neg for C diff. VTE PROPHYLAXIS On warfarin with therapeutic INR. Ambulate as able. DISPOSITION Staff expressed concerns about transfers and ambulating. Seen by PT- patient apparently at her baseline. Patient acknowledges her limitations, but insists that she will not fall. Ortho consult discussed- pt only willing to see Dr. Abdul and he is not available for several days. Skilled care discussed- pt not interested. She may be willing to consider home PT / OT, depending on insurance coverage. Family Medicine follow-up with Dr. Munoz. Follow-up with [facility]. . Current Inpatient Medications: Current Inpatient Medications Medications (Trade) Dose Ordered Sig/Ariela Route Start Time Stop Time Status Last Admin Dose Admin Acetaminophen (Tylenol Tab) 650 mg Q4H PRN PO 03/12/17 15:45 04/11/17 15:44 Ondansetron HCl (Zofran Inj) 4 mg Q6H PRN IV 03/12/17 15:45 04/11/17 15:44 Cholecalciferol (Vitamin D Tab) 1,000 inter.unit DAILY PO 03/13/17 08:00 04/12/17 08:59 03/20/17 07:28 1,000 INTER.UNIT Docusate Sodium (coLACE CAP) 100 mg DAILY PRN PO 03/12/17 16:00 04/11/17 15:59 03/16/17 07:45 100 MG Furosemide (Lasix Tab) 40 mg DAILY PO 03/13/17 08:00 04/12/17 08:59 Future Hold 03/18/17 08:06 40 MG Lisinopril (Zestril Tab) 10 mg DAILY PO 03/13/17 08:00 04/12/17 08:59 03/20/17 07:30 10 MG Magnesium Oxide (Mag-Ox Tab) 400 mg DAILY PO 03/13/17 08:00 04/12/17 08:59 03/20/17 07:29 400 MG Metoprolol Succinate (Toprol Xl Tab) 50 mg DAILY PO 03/13/17 08:00 04/12/17 08:59 03/20/17 07:28 50 MG Nystatin (Mycostatin Powder) 1 appln TID EXT 03/12/17 20:00 04/11/17 20:59 03/20/17 12:56 1 APPLN Potassium Chloride (Klor-Con Tab) 20 meq DAILY PO 03/13/17 08:00 04/12/17 08:59 03/20/17 07:31 20 MEQ Ranitidine HCl (zANTac TAB) 150 mg DAILY PO 03/13/17 08:00 04/12/17 08:59 03/20/17 07:27 150 MG Ferrous Sulfate (Feosol Tab) 325 mg DAILY PO 03/13/17 08:00 04/12/17 08:59 03/20/17 07:28 325 MG Warfarin Sodium (Coumadin Tab) 2.5 mg SuTuThSa@1999 PO 03/13/17 20:00 04/12/17 15:59 03/18/17 19:28 2.5 MG Warfarin Sodium (Coumadin Tab) 5 mg MoWeFr@1999 PO 03/14/17 20:00 04/11/17 15:59 03/19/17 21:44 5 MG Diphenoxylate HCl/ Atropine (Lomotil Tab) 1 tab Q12H PRN PO 03/16/17 04:30 04/15/17 04:29 03/20/17 05:36 1 TAB Doxycycline Hyclate (Vibramycin Cap) 100 mg BID PO 03/20/17 08:00 03/30/17 07:59 03/20/17 07:29 100 MG Levofloxacin (Levaquin Tab) 500 mg DAILY@11 PO 03/20/17 11:00 03/30/17 10:59 03/20/17 10:11 500 MG
[2017-03-20] MEDS: WARFARIN SOD 2.5 MG TAB PO SCH (19:43)
[2017-03-20 23:29] VITALS: BP 147/79; PULSE 71; TEMP 36.6; O2SAT 96
[2017-03-21] MEDS: DIPHENOXYLATE/ATROPINE 2.5/0.025MG TAB PO PRN (05:48)
[2017-03-21] MEDS: RANITIDINE HCL 150 MG TAB PO SCH (05:48)
[2017-03-21] MEDS: NYSTATIN POWDER 15GM BTL EXT SCH (07:11)
[2017-03-21] MEDS: DOXYCYCLINE HYCLATE 100 MG CAP PO SCH (07:11)
[2017-03-21] MEDS: FERROUS SULFATE 325 MG TAB PO SCH (07:12)
[2017-03-21] MEDS: POTASSIUM CHLORIDE 20 MEQ TABCR PO SCH (07:12)
[2017-03-21] MEDS: METOPROLOL SUCC 50MG EXT REL TAB PO SCH (07:13)
[2017-03-21] MEDS: CHOLECALCIFEROL 1000 INTER.UNIT TAB PO SCH (07:13)
[2017-03-21] MEDS: LISINOPRIL 10 MG TAB PO SCH (07:14)
[2017-03-21] MEDS: MAGNESIUM OXIDE 400 MG TAB PO SCH (07:14)
[2017-03-21 07:43] VITALS: BP_SYST 118; BP_SYST 130; BP_DIAS 68; BP_DIAS 81; PULSE 86; TEMP 36.6; O2SAT 96
[2017-03-21 09:11] LABS: CALCIUM 9.3 mg/dl (8.5-10.1); CREATININE 1.12 mg/dl (0.60-1.20); POTASSIUM 3.4 mmol/L (3.5-5.1)
[2017-03-21] MEDS ORDERED: LVQ500 PO (10:05)
--- NOTE | 2017-03-21 10:13 | Discharge Instructions ---
Discharge Instructions Date of Service Mar 21, 2017. Admission Reason for Admission: infection left leg . Discharge Discharge Diagnosis / Problem: infection left leg Discharge Goals Goal(s): Decrease discomfort, Improve function, Increase independence, Improve disease control Activity Recommendations Activity Limitations: resume your previous activity . Instructions / Follow-Up Instructions / Follow-Up APPOINTMENTS: FAMILY MEDICINE 03/26/2017 11:00 AM Constantino Munoz MD [facility] 03/29/2017 2:[address] Roblero and Dr. Rosario OTHER INSTRUCTIONS: Take doxycycline and levofloxacin until prescription finished. doxycycline- finish bottle that you have levofloxacin- new prescription sent to [facility] Make take diphenoxylate /atropine (Lomotil) once or twice a day for diarrhea as needed. Prescription sent to [facility]. Seek medical attention if diarrhea gets worse. Skip warfarin (Coumadin) dose today, the restart at previous dose day after discharge. Take extra potassium pill for next 3 days, then go back to your usual routine. Dressing changes left leg as instructed. Be very careful when walking or transferring from one place to another. Take every precaution not to fall. Seek medical attention if you have: * temperature above 101 * chest pain or trouble breathing * abdominal pain, nausea, vomiting * diarrhea, dark stools or bloody stools * any unanswered questions or concerns Call 911 if symptoms are severe. Call if you have any questions or problems. You can reach a [facility] hospitalist on duty at [facility] 24 hours a day by calling [phone]. Please take good care of yourself. Seth Celestin . Current Hospital Diet Patient's current hospital diet: AHA Diet (Heart Healthy) Discharge Diet Recommended Diet: AHA Diet (Heart Healthy) Pending Studies Studies pending at discharge: no Medical Emergencies . Who to Call and When: Medical Emergencies: If at any time you feel your situation is an emergency, please call 911 immediately. . Non-Emergent Contact Non-Emergency issues call your: Primary Care Provider, Hospital Doctor . . "Provider Documentation" section prepared by Seth Celestin. . VTE Core Measure Inpt VTE Proph given/why not?: Warfarin (Coumadin)
[2017-03-21] MEDS ORDERED: DIPH-416 PO (10:14)
[2017-03-21] MEDS: LEVOFLOXACIN 500 MG TAB PO SCH (10:36)
[2017-03-21 11:10] VITALS: BP 130/81; PULSE 86; TEMP 36.6; O2SAT 96
--- NOTE | 2017-03-21 15:16 | Progress Note ---
Medicine Progress Note Date & Time of Visit: Mar 21, 2017 at Subjective CC: Follow-up visit for cellulitis LLE and other problems. HPI: No fever. Still having some loose stools, but no worse. LLE feels OK. ROS: General- no fever, no chills Resp- pulmonary status with baseline CAM Cardiac- no chest pain, no edema GI- as noted above in HPI - chronic urinary incontinence . Objective Last 8 Hrs Date Time Temp Pulse Resp B/P (MAP) Pulse Ox O2 Delivery O2 Flow Rate FiO2 03/21/17 09:49 Room Air 03/21/17 07:43 36.6 86 18 130/81 (97) 96 Physical Exam: General- sitting at bedside; no distress Lungs- clear to auscultation; no respiratory distress Cardiovascular- RRR, no murmur or gallop appreciated; no JVD; 3-4+ lymphedema lower extremities Abdomen- + BS, soft, nontender Extremities- no cyanosis; no right calf tenderness; left leg bandaged Neuro- alert, oriented Skin- warm and dry . Laboratory Results: Last 24 Hours Test 03/21/17 07:26 Prothrombin Time 30.9 SECONDS Prothromb Time International Ratio 3.0 Sodium Level 141 mmol/L Potassium Level 3.4 mmol/L Chloride Level 106 mmol/L Carbon Dioxide Level 27 mmol/L Anion Gap 8.0 mmol/L Blood Urea Nitrogen 16 mg/dl Creatinine 1.12 mg/dl Est Creatinine Clear Calc Drug Dose 43.8 ml/min Estimated GFR () 50.4 Estimated GFR (Non- 43.5 BUN/Creatinine Ratio 14.0 Random Glucose 114 mg/dl Calcium Level 9.3 mg/dl Assessment & Plan CELLULITIS LEFT LOWER EXTREMITY Recurrent cellulitis. Underlying venous stasis ulcers. ID consulted. Wound culture growing MSSA and Pseudomonas aeruginosa. Received IV vancomycin and piperacillin / tazobactam. Transitioned to oral therapy with doxycycline and levofloxacin per ID. Outpatient follow-up with [facility]. CHRONIC ATRIAL FIBRILLATION Rate controlled on metoprolol. Anticoagulated with warfarin. CHRONIC DIASTOLIC CHF History of chronic left ventricular diastolic heart failure. Has chronic lower extremity lymphedema which is refractory to diuretic therapy. Compensated. Hold furosemide in light of frequent loose stools. Follow weights, labs. LYMPHEDEMA Diuretic therapy with caution to avoid excessive diuresis. Elevated lower extremities when able. HYPERTENSION Continue metoprolol and lisinopril. GERD Continue ranitidine. HYPOKALEMIA Serum potassium as low as 3.3. Hypokalemia probably secondary to furosemide and diarrhea. Replaced. K day of discharge 3.4. Pt advised to take extra dose of KCl for 3 more days. Recheck K in clinic. DIARRHEA Stools neg for C diff. Patient advised to notify PCP if diarrhea worsens. VTE PROPHYLAXIS On warfarin with therapeutic INR. Ambulate as able. DISPOSITION Staff expressed concerns about transfers and ambulating. Seen by PT- patient apparently at her baseline. Skilled care discussed- pt not interested. Family Medicine follow-up with Dr. Munoz. Follow-up with Wound Care and ID at [facility]. . Current Inpatient Medications: Current Inpatient Medications Medications (Trade) Dose Ordered Sig/Ariela Route Start Time Stop Time Status Last Admin Dose Admin Acetaminophen (Tylenol Tab) 650 mg Q4H PRN PO 03/12/17 15:45 04/11/17 15:44 Ondansetron HCl (Zofran Inj) 4 mg Q6H PRN IV 03/12/17 15:45 04/11/17 15:44 Cholecalciferol (Vitamin D Tab) 1,000 inter.unit DAILY PO 03/13/17 08:00 04/12/17 08:59 03/21/17 07:13 1,000 INTER.UNIT Docusate Sodium (coLACE CAP) 100 mg DAILY PRN PO 03/12/17 16:00 04/11/17 15:59 03/16/17 07:45 100 MG Furosemide (Lasix Tab) 40 mg DAILY PO 03/13/17 08:00 04/12/17 08:59 Future Hold 03/18/17 08:06 40 MG Lisinopril (Zestril Tab) 10 mg DAILY PO 03/13/17 08:00 04/12/17 08:59 03/21/17 07:14 10 MG Magnesium Oxide (Mag-Ox Tab) 400 mg DAILY PO 03/13/17 08:00 04/12/17 08:59 03/21/17 07:14 400 MG Metoprolol Succinate (Toprol Xl Tab) 50 mg DAILY PO 03/13/17 08:00 04/12/17 08:59 03/21/17 07:13 50 MG Nystatin (Mycostatin Powder) 1 appln TID EXT 03/12/17 20:00 04/11/17 20:59 03/21/17 07:11 1 APPLN Potassium Chloride (Klor-Con Tab) 20 meq DAILY PO 03/13/17 08:00 04/12/17 08:59 03/21/17 07:12 20 MEQ Ranitidine HCl (zANTac TAB) 150 mg DAILY PO 03/13/17 08:00 04/12/17 08:59 03/21/17 05:48 150 MG Ferrous Sulfate (Feosol Tab) 325 mg DAILY PO 03/13/17 08:00 04/12/17 08:59 03/21/17 07:12 325 MG Warfarin Sodium (Coumadin Tab) 2.5 mg SuTuThSa@1999 PO 03/13/17 20:00 04/12/17 15:59 03/20/17 19:43 2.5 MG Warfarin Sodium (Coumadin Tab) 5 mg MoWeFr@1999 PO 03/14/17 20:00 04/11/17 15:59 03/19/17 21:44 5 MG Diphenoxylate HCl/ Atropine (Lomotil Tab) 1 tab Q12H PRN PO 03/16/17 04:30 04/15/17 04:29 03/21/17 05:48 1 TAB Doxycycline Hyclate (Vibramycin Cap) 100 mg BID PO 03/20/17 08:00 03/30/17 07:59 03/21/17 07:11 100 MG Levofloxacin (Levaquin Tab) 500 mg DAILY@11 PO 03/20/17 11:00 03/30/17 10:59 03/20/17 10:11 500 MG
--- NOTE | 2017-03-21 15:21 | Discharge Summary ---
Discharge Summary Date of Service Mar 21, 2017. Discharge Summary Admission Date: Mar 12, 2017 at 15:37 Discharge Date: Mar 21, 2017 Discharge Disposition: Home with services Principal Diagnosis: cellulitis left lower extremity venous stasis ulcers OTHER ACUTE DIAGNOSES: hypokalemia . Secondary Diagnoses/Problems: Chronic and Resolved Medical Problems: (1) Atrial fibrillation Status: Chronic (2) bladder stimulator Status: Chronic (3) GERD (gastroesophageal reflux disease) Status: Chronic (4) Heart failure, diastolic Permanent Comment: echo 2012 - EF 55-60%, grade III diastolic dysfunction, mild MR, mild TR Status: Chronic (5) History of DVT (deep vein thrombosis) Permanent Comment: LUE Status: Chronic (6) HTN (hypertension) Status: Chronic (7) Hypertension Status: Chronic (8) Long-term (current) use of anticoagulants Status: Chronic (9) Lymphedema of lower extremity Status: Chronic (10) Osteoarthritis Status: Chronic (11) Urge incontinence Status: Chronic (12) Vitamin D deficiency Status: Chronic Surgical Problems: (1) H/O dilation and curettage Status: Chronic (2) S/P jo Status: Chronic (3) S/P tonsillectomy Status: Chronic . Procedures: IV medications . Consultations: Wound Care ID . Pending Studies/Follow-Up: Please check basic metabolic profile in clinic. Please monitor INR's closely while receiving antibiotic therapy. . Medication Reconciliation New Medications: Diphenoxylate/Atropine (Lomotil) Tab 1 TAB PO BID PRN for diarrhea, #10 TAB 1 Refill Levofloxacin (Levofloxacin) 500 Mg Tab 500 MG PO DAILY@11, #12 TAB Continued Medications: Bilberry (Vaccinium Myrtillus) (Bilberry) Unknown Strength Cap 1 CAP PO DAILY Cholecalciferol (D3-1000) 1,000 Unit Tab 1000 INTUNIT PO DAILY Docusate Sodium (Docusate Sodium) 100 Mg Cap 1 CAP PO DAILY PRN for Constipation for 30 Days, #30 CAP Doxycycline Monohydrate (Monodox) 100 Mg Cap 100 MG PO BID for 14 Days, #28 CAP 1 Refill STARTED 03/09/17 Ergocalciferol (Vitamin D 74596 Unit) 50,000 Unit Cap 70460 UNIT PO MONTHLY, CAP Ferrous Sulfate (Kp Ferrous Sulfate) 325 Mg Tab 325 MG PO DAILY for 30 Days, #30 TAB 3 Refills Furosemide (Lasix) 40 Mg Tab 40 MG PO UD, TAB PT STATES SHE'S SUPPOSED TO TAKE EVERYDAY, BUT "TAKES A BREAK" EVERY FEW DAYS Lisinopril (Zestril) 10 Mg Tab 10 MG PO DAILY, 5 Refills Lutein (Lutein) Unknown Strength Cap 1 CAP PO DAILY Magnesium Oxide (Mag-Ox) 400 Mg Tab 400 MG PO QD, TAB Metoprolol Succinate (Toprol Xl) 50 Mg Tabcr 50 MG PO DAILY, TAB Nitroglycerin (Nitrostat) 0.4 Mg Tab 0.4 MG UT UD Nystatin (Topical) (Nystop) 100,000 Unit/Gm Pow 1 APPLN TD TID Potassium Chloride Microencaps (Potassium Chloride Cr) 20 Meq Tab 20 MEQ PO DAILY Takes with Lasix Ranitidine Hcl (Zantac) 150 Mg Tab 150 MG PO DAILY for 90 Days, #90 TAB 3 Refills Warfarin Sod (Jantoven) 5 Mg Tab 5 MG PO 3XWK, TAB SUNDAY, SUNDAY, SUNDAY Warfarin Sod (Jantoven) 5 Mg Tab 2.5 MG PO 4XWK, TAB SUNDAY, SUNDAY, SUNDAY, SUNDAY Admission Information HPI (per Admitting provider): 87 year old female who presents to the ED with left lower extremity wound. Patient was seen at the wound care center last week for this wound. Culture was obtained that grew MSSA. Patient was started on doxycycline on 03/08. Home health nursing saw the patient on 03/08 and placed a dressing on the wound. Patent was instructed to keep the dressing on until 03/13. Yesterday patient reports the dressing felt increasing wet. She called the wound care center today who advised to have the dressing removed. Home health nursing came to remove the dressing and when it was removed there was a large ulcerated area over the anterior ankle with foul smell and significant amount of serous drainage. Patient was then referred to the ED for further evaluation. Patient denies fever and chills. No chest pain. She has chronic exertional shortness of breath which is unchanged from baseline. She denies lightheadedness, dizziness, diaphoresis, or syncopal events. No abdominal pain, nausea, vomiting, or diarrhea. She has chronic urinary incontinence at baseline. She denies other urinary symptoms. In the ED, patient's labs are unremarkable and vitals are stable. She was given IV Vanco and IV ceftriaxone. . Physical Exam (per Admitting): General Appearance: WD/WN, no apparent distress, + obese Head: normocephalic, atraumatic Eyes: normal inspection, EOMI, sclerae normal ENT: hearing grossly normal, + pertinent finding (mucous membranes moist) Neck: supple, no JVD, trachea midline Respiratory/Chest: lungs clear, normal breath sounds, no respiratory distress Cardiovascular: normal peripheral pulses, + irregularly irregular (rate controlled), + pertinent finding (+2-3 edema BLLE) Abdomen/GI: normal bowel sounds, non tender, soft, no organomegaly Extremities/Musculoskelatal: normal inspection, no calf tenderness, normal capillary refill Neurologic/Psych: no motor/sensory deficits, alert, normal mood/affect, oriented x 3 Skin: + pertinent finding (abdominal, breast, and groin folds excoriated; large ulcerated wound noted to the anterior aspect of the left ankle with foul odor and serous/serosanguineous drainage) Hospital Course CELLULITIS LEFT LOWER EXTREMITY Presented with recurrent cellulitis LLE. Underlying venous stasis ulcers. ID consulted. Wound culture grew MSSA and Pseudomonas aeruginosa. Received IV vancomycin and piperacillin / tazobactam with improvement. Transitioned to oral therapy with doxycycline and levofloxacin per ID. Outpatient follow-up with Wound Care and ID at [facility]. CHRONIC ATRIAL FIBRILLATION Rate controlled on metoprolol. Anticoagulated with warfarin. CHRONIC DIASTOLIC CHF History of chronic left ventricular diastolic heart failure. Has chronic lower extremity lymphedema which is refractory to diuretic therapy. Compensated. Continue furosemide PRN. Follow weights, labs. LYMPHEDEMA Diuretic therapy with caution to avoid excessive diuresis. Elevated lower extremities when able. HYPERTENSION Continue metoprolol and lisinopril. GERD Continue ranitidine. HYPOKALEMIA Serum potassium as low as 3.3. Hypokalemia probably secondary to furosemide and diarrhea. Replaced. K day of discharge 3.4. Pt advised to take extra dose of KCl for 3 more days. Recheck K in clinic. DIARRHEA Stools neg for C diff. Patient advised to notify PCP if diarrhea worsens. VTE PROPHYLAXIS On warfarin with therapeutic INR. Ambulate as able. DISPOSITION Staff expressed concerns about transfers and ambulating. Seen by PT- patient apparently at her baseline. Skilled care discussed- pt not interested. Family Medicine follow-up with Dr. Munoz. Follow-up with Wound Care and ID at [facility]. . Total time spent on discharge = 40 min. This includes examination of the patient, discharge planning, medication reconciliation, and communication with other providers. . Discharge Instructions Date of Service Mar 21, 2017. Admission Reason for Admission: infection left leg . Discharge Discharge Diagnosis / Problem: infection left leg Discharge Goals Goal(s): Decrease discomfort, Improve function, Increase independence, Improve disease control Activity Recommendations Activity Limitations: resume your previous activity . Instructions / Follow-Up Instructions / Follow-Up APPOINTMENTS: FAMILY MEDICINE 03/26/2017 11:00 AM Constantino Munoz MD [facility] CL[facility] 03/29/2017 2:[address] Roblero and Dr[address] Rosario OTHER INSTRUCTIONS: Take doxycycline and levofloxacin until prescription finished. doxycycline- finish bottle that you have levofloxacin- new prescription sent to [facility] Make take diphenoxylate /atropine (Lomotil) once or twice a day for diarrhea as needed. Prescription sent to [facility]. Seek medical attention if diarrhea gets worse. Skip warfarin (Coumadin) dose today, the restart at previous dose day after discharge. Take extra potassium pill for next 3 days, then go back to your usual routine. Dressing changes left leg as instructed. Be very careful when walking or transferring from one place to another. Take every precaution not to fall. Seek medical attention if you have: * temperature above 101 * chest pain or trouble breathing * abdominal pain, nausea, vomiting * diarrhea, dark stools or bloody stools * any unanswered questions or concerns Call 911 if symptoms are severe. Call if you have any questions or problems. You can reach a [facility] hospitalist on duty at [facility] 24 hours a day by calling [phone]. Please take good care of yourself. Seth Celestin . Current Hospital Diet Patient's current hospital diet: AHA Diet (Heart Healthy) Discharge Diet Recommended Diet: AHA Diet (Heart Healthy) Pending Studies Studies pending at discharge: no Medical Emergencies . Who to Call and When: Medical Emergencies: If at any time you feel your situation is an emergency, please call 911 immediately. . Non-Emergent Contact Non-Emergency issues call your: Primary Care Provider, Hospital Doctor . . "Provider Documentation" section prepared by Seth Celestin. . VTE Core Measure Inpt VTE Proph given/why not?: Warfarin (Coumadin) . Additional Copies To Bobo Rosario MD; Constantino Munoz M.D.; Jennifer. Hernandez D.OAnel; Garry Roblero, DO
== END 2017-03-21 13:13 | disposition home health service (06) | DRG 603 ==
LOC: EDBD 13:38 → C.EDA 13:39 → C.MS4W 15:37 → ENRESERV 16:01
PROVIDERS: ADMIT Internal Medicine; ATTEND Hospitalist
DX: L03.116 Cellulitis of left lower limb (principal); I50.32 Chronic diastolic (congestive) heart failure; L97.929 Non-pressure chronic ulcer of unspecified part of left lower leg with unspecified severity; Z82.0 Family history of epilepsy and other diseases of the nervous system; Z79.01 Long term (current) use of anticoagulants; B95.61 Methicillin susceptible Staphylococcus aureus infection as the cause of diseases classified elsewhere; I48.2 Chronic atrial fibrillation; I10 Essential (primary) hypertension; I89.0 Lymphedema, not elsewhere classified; K21.9 Gastro-esophageal reflux disease without esophagitis; I87.8 Other specified disorders of veins; I87.2 Venous insufficiency (chronic) (peripheral)

== ENCOUNTER 2017-03-24 10:52 | Inpatient (IN) | payer OTHER ==
[~2017-03-24] VITALS: Ht 165.1 cm; Wt 105.9 kg
[2017-03-24] VITALS (7 sets, daily range): BP systolic 124–176; BP diastolic 79–112; PULSE 95–121; TEMP 36.5–37.1; O2SAT 93–95; Ht 165.1 cm; Wt 105.9 kg
[~2017-03-24 10:52] MED LIST changes: +BILB1CAP PO; -CMD/25 PO; +DIPH-416 PO; +DOCU100C31 PO; +LUTE20CA PO; +LVQ500 PO; +METO-217 PO; -METO-478 PO; -NYSP EXT; +NYST100010 TD; +WARF5TAB7 PO
--- NOTE | 2017-03-24 11:18 | EMERGENCY ROOM VISIT NOTE ---
History Report prepared by Di: Sam Hull Under the Supervision of: Dr. Jovany Hernandez M.D. First contact with patient: 10:55 Chief Complaint: ILLNESS Stated Complaint: ILLNESS History of Present Illness The patient is an 87 year old female who presents to the Emergency Room with complaints of cold symptoms that began Sunday night, three days prior to arrival. The patient states that she was discharged from the hospital on Sunday morning, after a week stay in the hospital. This inpatient stay was secondary to an infection in her leg. She was on antibiotics during this stay. When she got home from the hospital she developed cold symptoms. She notes that she has shortness of breath at baseline, but was told she likely had bronchitis which is why her SOB is worsening. She has been having multiple bouts of diarrhea daily for the past week. The patient notes that she has vomited recently after eating, but this is not uncommon secondary to and abdominal hernia. 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 A total of ten systems were reviewed and were otherwise negative. Past Medical & Surgical Medical Problems: (1) Atrial fibrillation (2) bladder stimulator (3) GERD (gastroesophageal reflux disease) (4) Heart failure, diastolic (5) History of DVT (deep vein thrombosis) (6) HTN (hypertension) (7) Hypertension (8) Influenza (9) Long-term (current) use of anticoagulants (10) Lymphedema of lower extremity (11) Osteoarthritis (12) Tachycardia (13) Urge incontinence (14) Vitamin D deficiency Surgical Problems: (1) H/O dilation and curettage (2) S/P jo (3) S/P tonsillectomy Family History FH: Parkinson's disease MOTHER FH: cancer FATHER Social History Smoking Status: Never Smoker Smokeless Tobacco Use: No Alcohol Use: none Occupation Status: retired Current/Historical Medications Scheduled Bilberry (Vaccinium Myrtillus) (Bilberry), 1 CAP PO DAILY Cholecalciferol (D3-1000), 1,000 INTUNIT PO DAILY Doxycycline Monohydrate (Monodox), 100 MG PO BID Ergocalciferol (Vitamin D 43217 Unit), 50,000 UNIT PO MONTHLY Ferrous Sulfate (Kp Ferrous Sulfate), 325 MG PO DAILY Furosemide (Lasix), 40 MG PO UD Levofloxacin (Levaquin), 500 MG PO DAILY Lisinopril (Zestril), 10 MG PO DAILY Lutein (Lutein), 1 CAP PO DAILY Magnesium Oxide (Mag-Ox), 400 MG PO QD Metoprolol Succinate (Toprol Xl), 50 MG PO DAILY Nitroglycerin (Nitrostat), 0.4 MG UT UD Nystatin (Topical) (Nystop), 1 APPLN TD TID Potassium Chloride Microencaps (Potassium Chloride Cr), 40 MEQ PO DAILY Ranitidine Hcl (Zantac), 150 MG PO DAILY Warfarin Sod (Jantoven), 5 MG PO 3XWK Warfarin Sod (Jantoven), 2.5 MG PO 4XWK Allergies Coded Allergies: Anesthetics, Halogenated (Unverified Allergy, Unknown, UNKNOWN, 03/24/17) INDICATED IT ISNT ALL TYPES. IT IS SODIUM PHENYL Dust (Verified Allergy, Unknown, 03/24/17) Iodinated Diagnostic Agents (Verified Allergy, Unknown, `, 03/24/17) POLLEN (Verified Allergy, Unknown, 03/24/17) Shellfish (Verified Allergy, Unknown, HIVES, 03/24/17) Sulfa Antibiotics (Verified Allergy, Unknown, BOILS, STYES, 03/24/17) Thiopental (Verified Allergy, Unknown, 03/24/17) Trimethoprim (Verified Allergy, Unknown, 03/24/17) Physical Exam Vital Signs Date Time Temp Pulse Resp B/P (MAP) Pulse Ox O2 Delivery O2 Flow Rate FiO2 03/24/17 13:10 139 03/24/17 12:32 155 24 187/108 100 Nebulizer 03/24/17 11:38 108 20 94 Room Air 03/24/17 11:03 98 03/24/17 10:59 36.8 102 20 190/119 94 Room Air Physical Exam GENERAL: Awake, alert, ill-appearing, in no distress HENT: Normocephalic, atraumatic. Dry mucous membranes. EYES: Normal conjunctiva. Sclera non-icteric. NECK: Supple. No nuchal rigidity. FROM. No JVD. RESPIRATORY: Three is scattered wheezing and rhonchi throughout, breath sounds are diminished at the bases. CARDIAC: Irregularly irregular rate, normal rhythm. Extremities warm and well perfused. Pulses equal. ABDOMEN: Soft, non-distended. No tenderness to palpation. No rebound or guarding. No masses. RECTAL: Deferred. MUSCULOSKELETAL: Chest examination reveals no tenderness. The back is symmetrical on inspection without obvious abnormality. There is no CVA tenderness to palpation. No joint edema. LOWER EXTREMITIES: Calves are equal size bilaterally and non-tender. There is 2 + edema bilaterally. There is mild erythema to the left heel. NEURO: Normal sensorium. No sensory or motor deficits noted. SKIN: No rash or jaundice noted. Medical Decision & Procedures ER Provider Diagnostic Interpretation: Radiology results as stated below per my review and radiologist interpretation: CHEST ONE VIEW PORTABLE CLINICAL HISTORY: Fever. Sepsis. COMPARISON STUDY: Chest radiograph December 19, 2016. FINDINGS: Moderate cardiomegaly is noted. A moderate to large hiatal hernia is noted. There is no pneumothorax or definite pleural effusion. Reticulonodular interstitial thickening is noted. IMPRESSION: 1. Interstitial thickening which favors mild pulmonary edema. 2. Moderate cardiomegaly. 3. Hiatal hernia. Electronically signed by: Braydon Meraz M.D. 03/24/2017 11:34 AM Dictated Date/Time: 03/24/2017 11:33 AM Laboratory Results 03/24/17 11:46 Red Blood Count 4.50, Mean Corpuscular Volume 83.3, Mean Corpuscular Hemoglobin 27.3, Mean Corpuscular Hemoglobin Concent 32.8, Mean Platelet Volume 10.1, Neutrophils (%) (Auto) 69.4, Lymphocytes (%) (Auto) 12.4, Monocytes (%) (Auto) 17.7, Eosinophils (%) (Auto) 0.0, Basophils (%) (Auto) 0.3, Neutrophils # (Auto ) 4.04, Lymphocytes # (Auto) 0.72, Monocytes # (Auto) 1.03, Eosinophils # (Auto ) 0.00, Basophils # (Auto) 0.02 03/24/17 11:46 Test 03/24/17 11:30 03/24/17 11:46 Urine Color YELLOW Urine Appearance CLEAR (CLEAR) Urine pH 5.0 (4.5-7.5) Urine Specific [place] 1.018 (1.000-1.030) Urine Protein 1+ (NEG) Urine Glucose (UA) NEG (NEG) Urine Ketones NEG (NEG) Urine Occult Blood 3+ (NEG) Urine Nitrite NEG (NEG) Urine Bilirubin NEG (NEG) Urine Urobilinogen NEG (NEG) Urine Leukocyte Esterase NEG (NEG) Urine WBC (Auto) 1-5 /hpf (0-5) Urine RBC (Auto) 10-30 /hpf (0-4) Urine Hyaline Casts (Auto) 1-5 /lpf (0-5) Urine Epithelial Cells (Auto) 10-20 /lpf (0-5) Urine Bacteria (Auto) NEG (NEG) Urine Yeast (Auto) (NONE PRSENT) Influenza Type A Antigen POS for Influ A (NEG) Influenza Type B Antigen Neg for Influ B (NEG) White Blood Count 5.82 K/uL (4.8-10.8) Red Blood Count 4.50 M/uL (4.2-5.4) Hemoglobin 12.3 g/dL (12.0-16.0) Hematocrit 37.5 % (37-47) Mean Corpuscular Volume 83.3 fL (80-100) Mean Corpuscular Hemoglobin 27.3 pg (25-34) Mean Corpuscular Hemoglobin Concent 32.8 g/dl (32-36) Platelet Count 188 K/uL (130-400) Mean Platelet Volume 10.1 fL (7.4-10.4) Neutrophils (%) (Auto) 69.4 % Lymphocytes (%) (Auto) 12.4 % Monocytes (%) (Auto) 17.7 % Eosinophils (%) (Auto) 0.0 % Basophils (%) (Auto) 0.3 % Neutrophils # (Auto) 4.04 K/uL (1.4-6.5) Lymphocytes # (Auto) 0.72 K/uL (1.2-3.4) Monocytes # (Auto) 1.03 K/uL (0.11-0.59) Eosinophils # (Auto) 0.00 K/uL (0-0.5) Basophils # (Auto) 0.02 K/uL (0-0.2) RDW Standard Deviation 50.4 fL (36.4-46.3) RDW Coefficient of Variation 16.5 % (11.5-14.5) Immature Granulocyte % (Auto) 0.2 % Immature Granulocyte # (Auto) 0.01 K/uL (0.00-0.02) Prothrombin Time 17.5 SECONDS (9.0-12.0) Prothromb Time International Ratio 1.7 (0.9-1.1) Venous Blood pH 7.37 (7.36-7.41) Venous Blood Partial Pressure CO2 46 mmHg (38.0-50.0) Venous Blood Partial Pressure O2 94 mmHg Venous Blood HCO3 26 mmol/L Venous Blood Oxygen Saturation 96.6 % Venous Blood Base Excess 0.0 mEq/L Anion Gap 9.0 mmol/L (3-11) Est Creatinine Clear Calc Drug Dose 46.6 ml/min Estimated GFR () 56.5 Estimated GFR (Non- 48.7 BUN/Creatinine Ratio 18.0 (10-20) Lactic Acid Level 1.6 mmol/L (0.4-2.0) Calcium Level 8.9 mg/dl (8.5-10.1) Total Bilirubin 0.3 mg/dl (0.2-1) Direct Bilirubin 0.1 mg/dl (0-0.2) Aspartate Amino Transf (AST/SGOT) 36 U/L (15-37) Alanine Aminotransferase (ALT/SGPT) 27 U/L (12-78) Alkaline Phosphatase 60 U/L (45-117) Troponin I 0.050 ng/ml (0-0.045) Pro-B-Type Natriuretic Peptide 6417 pg/ml (0-1800) Total Protein 7.1 gm/dl (6.4-8.2) Albumin 2.5 gm/dl (3.4-5.0) Lipase 115 U/L (73-393) Laboratory results reviewed by me Medications Administered Medications (Trade) Dose Ordered Sig/Ariela Route Start Time Stop Time Status Last Admin Dose Admin Albuterol/ Ipratropium (Duoneb) 12 ml ONE ONCE INH 03/24/17 11:30 03/24/17 11:31 DC 03/24/17 11:36 12 ML Levofloxacin (Levaquin Tab) 500 mg NOW STAT PO 03/24/17 13:34 03/24/17 13:36 DC 03/24/17 14:05 500 MG Furosemide (Lasix Inj) 40 mg NOW STAT IV 03/24/17 13:34 03/24/17 13:36 DC 03/24/17 14:08 40 MG Oseltamivir Phosphate (Tamiflu Cap) 75 mg NOW STAT PO 03/24/17 13:34 03/24/17 13:36 DC 03/24/17 14:07 75 MG ECG Indication: SOB/dyspnea Rate (beats per minute): 113 Rhythm: atrial fibrillation (w/ RVR) Findings: PVC, no acute ischemic change, other (normal axis) Change: Patient's electrocardiogram interpreted by me. ED Course 0900: Ordered Metoprolol 50 mg PO. 1101: The patient was evaluated in room C3. A complete history and physical exam was performed. 1130: Ordered Duoneb 12 mL INH. 1334: Ordered Tamiflu Cap 75 mg PO, Lasix 40 mg IV, Levaquin 500 mg PO. 1342: I discussed the patient with Dr. Lakeisha Aguirre. He will evaluate the patient for further treatment. Medical Decision I reviewed the patient's past medical history, medications, and the nursing notes as described above. Differential diagnosis: Etiologies such as infections, reactive airway disease, pneumonia, pneumothorax , COPD, CHF, cardiac ischemia, pulmonary embolism, musculoskeletal, gastrointestinal, as well as others were entertained. The patient is an 87 y/o woman with pmhx of afib on coumadin, diastolic heart failure, currently being treated with doxycycline and levoquin for LE cellulitis after admission for the same presents to ED for cough and congestion evolving since yesterday per HPI. On arrival the patient is ill-appearing, AF, HR 100s VSS. Scattered wheezes and rhonchi on exam with mild dyspnea. Influenza A positive. CXR demonstrates mild venous congestion. BNP elevated in 6000s. Trop 0.05 likely related to patients CHF in the setting of the flu. EKG without signs of acute ishcemia. Will continue to trend. WBC and CO2 wnl. Patient with improved air movement after nebs however tachycardic briefly 150s improving to 130s, likely worsened by also not taking her morning metoprolol. Patient given home metoprolol and Levaquin. Additionally, given Tamiflu for Influenza A as well as IV lasix for her fluid overload. Case d/w Jani Caballero hospitalist, who will admit the patient for further management. Blood Pressure Screening Patient's blood pressure: Elevated blood pressure Referred to hospitalist Consults Time Called: 1336 Consulting Physician: Dr. Lakeisha [facility] Returned Call: 1342 I discussed the patient with Dr. Suazo - [facility]. He will evaluate the patient for further treatment. Impression Primary Impression: Influenza A Additional Impression: Acute exacerbation of CHF (congestive heart failure) Scribe Attestation The scribe's documentation has been prepared under my direction and personally reviewed by me in its entirety. I confirm that the note above accurately reflects all work, treatment, procedures, and medical decision making performed by me. Departure Information Dispostion Being Evaluated By Hospitalist Referrals Constantino Munoz M.D. (PCP) Patient Instructions My [facility] Problem Qualifiers
[2017-03-24] MEDS ORDERED: ALBUT/IPRATROP 3MG/0.5MG NEB 3 ML VIAL INH ONE (11:30)
--- NOTE | 2017-03-24 11:35 | DIAGNOSTIC IMAGING REPORT ---
CHEST ONE VIEW PORTABLE CLINICAL HISTORY: Fever. Sepsis. COMPARISON STUDY: Chest radiograph December 19, 2016. FINDINGS: Moderate cardiomegaly is noted. A moderate to large hiatal hernia is noted. There is no pneumothorax or definite pleural effusion. Reticulonodular interstitial thickening is noted. IMPRESSION: 1. Interstitial thickening which favors mild pulmonary edema. 2. Moderate cardiomegaly. 3. Hiatal hernia. Electronically signed by: Braydon Meraz M.D. 03/24/2017 11:34 AM Dictated Date/Time: 03/24/2017 11:33 AM
[2017-03-24 12:06] LABS: BASO % 0.3 %; BASO ABS # 0.02 K/uL (0-0.2); HEMATOCRIT 37.5 % (37-47); HEMOGLOBIN 12.3 g/dL (12.0-16.0); IG# 0.01 K/uL (0.00-0.02); LYMPH % 12.4 %; LYMPH ABS # 0.72 K/uL (1.2-3.4); MEAN CELL VOLUME 83.3 fL (80-100); MEAN CORPUSCULAR HEMOGLOBIN 27.3 pg (25-34); MEAN CORPUSCULAR HGB CONC 32.8 g/dl (32-36); MEAN PLATELET VOLUME 10.1 fL (7.4-10.4); MONO % 17.7 %; MONO ABS # 1.03 K/uL (0.11-0.59); NEUT % 69.4 %; NEUT ABS # 4.04 K/uL (1.4-6.5); PLATELET COUNT 188 K/uL (130-400); RED CELL DISTRIBUTION WIDTH CV 16.5 % (11.5-14.5); RED CELL DISTRIBUTION WIDTH SD 50.4 fL (36.4-46.3); WHITE BLOOD COUNT 5.82 K/uL (4.8-10.8)
[2017-03-24 12:13] LABS: INFLUENZA B ANTIGEN Neg for Influ B (NEG)
[2017-03-24 12:13] LABS: INR 1.7 (0.9-1.1)
[2017-03-24] MEDS ORDERED: LEVO-366 PO (12:23)
[2017-03-24 12:25] LABS: ALBUMIN 2.5 gm/dl (3.4-5.0); CALCIUM 8.9 mg/dl (8.5-10.1); CREATININE 1.02 mg/dl (0.60-1.20); POTASSIUM 3.4 mmol/L (3.5-5.1)
[2017-03-24 12:45] LABS: TOTAL PROTEIN 7.1 gm/dl (6.4-8.2)
[2017-03-24] MEDS ORDERED: LEVOFLOXACIN 250 MG TAB PO STA (13:34)
[2017-03-24] MEDS ORDERED: FUROSEMIDE 40 MG/4 ML VIAL IV STA (13:34)
[2017-03-24] MEDS ORDERED: OSELTAMIVIR PHOSPHATE 75 MG CAP PO STA (13:34)
[2017-03-24] MEDS ORDERED: POTASSIUM CHLORIDE 10 MEQ TABCR PO STA (14:42)
[2017-03-24] MEDS ORDERED: POLYETHYLENE (MIRALAX) 17 GM PACK PO PRN (14:45)
[2017-03-24] MEDS ORDERED: ONDANSETRON INJ 2 MG/ML 2 ML VIAL IV PRN (14:45)
[2017-03-24] MEDS ORDERED: ACETAMINOPHEN 325 MG TAB PO PRN (14:45)
[2017-03-24] MEDS ORDERED: METOPROLOL TARTRATE 1 MG/ML VIAL IV STA (14:52)
[2017-03-24] MEDS: BENZONATATE 100MG CAP PO PRN (15:13)
--- NOTE | 2017-03-24 15:22 | History and Physical ---
History & Physical Date & Time of Service: Mar 24, 2017 at 14:50 Chief Complaint: Influenza, Tachycardia Primary Care Physician: Constantino Munoz M.D. History of Present Illness Source: patient, family, hospital records Patient is an 87 yo female who presented to the ER from home for complaints of worsening "cold-like" symptoms including nasal congestion/rhinorrhea, cough, and chills. She states her symptoms began on and progressively worsened since then until finally her wound care nurse saw her and encouraged her to come to the ER. The patient was just discharged home from the hospital on Sunday, when she was treated for LLE cellulitis and wounds, and has been taking antibiotics. She feels as though her SOB is at her usual baseline, but reports it was worse yesterday due to the infection. She reports last week having multiple episodes of diarrhea which stopped on Sunday, but then began again today. The patient also states that she vomited recently after eating, but this is not uncommon secondary to her hiatal hernia. She also reports feeling shaky and jittery but denies any fevers or myalgias. She states she may have had a headache yesterday but it has subsided. Cough is non productive. Denies any chest pain. Denies any sore throat or ear pain. Past Medical/Surgical History Medical Problems: (1) Atrial fibrillation Status: Chronic (2) bladder stimulator Status: Chronic (3) GERD (gastroesophageal reflux disease) Status: Chronic (4) Heart failure, diastolic Permanent Comment: echo 2013 - EF 55-60%, grade III diastolic dysfunction, mild MR, mild TR Status: Chronic (5) History of DVT (deep vein thrombosis) Permanent Comment: LUE Status: Chronic (6) HTN (hypertension) Status: Chronic (7) Hypertension Status: Chronic (8) Long-term (current) use of anticoagulants Status: Chronic (9) Lymphedema of lower extremity Status: Chronic (10) Osteoarthritis Status: Chronic (11) Urge incontinence Status: Chronic (12) Vitamin D deficiency Status: Chronic Surgical Problems: (1) H/O dilation and curettage Status: Chronic (2) S/P jo Status: Chronic (3) S/P tonsillectomy Status: Chronic Family History FH: Parkinson's disease MOTHER FH: cancer FATHER Social History Smoking Status: Never Smoker Smokeless Tobacco Use: No Occupational Status: retired Immunizations History of Influenza Vaccine: No Influenza Vaccine Date: Nov 24, 2011 History of Tetanus Vaccine?: Yes Tetanus Immunization Date: Jun 21, 2005 History of Pneumococcal: Yes Pneumococcal Date: Jan 14, 2015 Multi-Drug Resistant Organisms History of MDRO: No Allergies Coded Allergies: Anesthetics, Halogenated (Unverified Allergy, Unknown, UNKNOWN, 03/24/17) INDICATED IT ISNT ALL TYPES. IT IS SODIUM PHENYL Dust (Verified Allergy, Unknown, 03/24/17) Iodinated Diagnostic Agents (Verified Allergy, Unknown, `, 03/24/17) POLLEN (Verified Allergy, Unknown, 03/24/17) Shellfish (Verified Allergy, Unknown, HIVES, 03/24/17) Sulfa Antibiotics (Verified Allergy, Unknown, BOILS, STYES, 03/24/17) Thiopental (Verified Allergy, Unknown, 03/24/17) Trimethoprim (Verified Allergy, Unknown, 03/24/17) Home Medications Scheduled Bilberry (Vaccinium Myrtillus) (Bilberry), 1 CAP PO DAILY Cholecalciferol (D3-1000), 1,000 INTUNIT PO DAILY Doxycycline Monohydrate (Monodox), 100 MG PO BID Ergocalciferol (Vitamin D 84749 Unit), 50,000 UNIT PO MONTHLY Ferrous Sulfate (Kp Ferrous Sulfate), 325 MG PO DAILY Furosemide (Lasix), 40 MG PO UD Levofloxacin (Levaquin), 500 MG PO DAILY Lisinopril (Zestril), 10 MG PO DAILY Lutein (Lutein), 1 CAP PO DAILY Magnesium Oxide (Mag-Ox), 400 MG PO QD Metoprolol Succinate (Toprol Xl), 50 MG PO DAILY Nitroglycerin (Nitrostat), 0.4 MG UT UD Nystatin (Topical) (Nystop), 1 APPLN TD TID Potassium Chloride Microencaps (Potassium Chloride Cr), 40 MEQ PO DAILY Ranitidine Hcl (Zantac), 150 MG PO DAILY Warfarin Sod (Jantoven), 5 MG PO 3XWK Warfarin Sod (Jantoven), 2.5 MG PO 4XWK Review of Systems Constitutional: + chills, + weakness, No fever, No sweats Eyes: No redness, No discharge, No diplopia, No problem reported ENT: + nasal symptoms, No hearing loss, No sore throat Respiratory: + cough, + wheezing, + shortness of breath, + dyspnea at rest, No sputum Cardiovascular: + edema, + palpitations, No chest pain, No claudication Abdomen: + diarrhea, No pain, No nausea, No vomiting, No GI bleeding Musculoskeletal: No joint pain, No muscle pain, No calf pain Genitourinary - Female: + urinary incontinence, No dysuria, No urinary frequency, No urinary urgency Neurologic: No memory loss, No numbness/tingling, No vertigo Psychiatric: No problem reported Endocrine: No problem reported Hematologic / Lymphatic: No problem reported Integumentary: No problem reported Physical Exam Vital Signs Date Time Temp Pulse Resp B/P (MAP) Pulse Ox O2 Delivery O2 Flow Rate FiO2 03/24/17 14:08 146 153/105 03/24/17 13:10 139 03/24/17 12:32 155 24 187/108 100 Nebulizer 03/24/17 11:38 108 20 94 Room Air 03/24/17 11:03 98 03/24/17 10:59 36.8 102 20 190/119 94 Room Air General Appearance: WD/WN, no apparent distress Head: normocephalic, atraumatic Eyes: PERRL, EOMI, sclerae normal (conjunctivae clear) ENT: hearing grossly normal, + nasal congestion, + nasal drainage Neck: supple, no JVD, trachea midline Respiratory/Chest: chest non-tender, no respiratory distress, no accessory muscle use, + wheezing Cardiovascular: no gallop, no JVD, no murmur, + irregularly irregular Abdomen/GI: normal bowel sounds, non tender, soft, no organomegaly Back: no CVA tenderness, no muscle spasm Extremities/Musculoskelatal: normal capillary refill, + calf tenderness, + pertinent finding (stasis skin changes to bilateral LE) Neurologic/Psych: no motor/sensory deficits, alert, normal mood/affect, oriented x 3 Skin: normal color, warm/dry, no rash Diagnostics Laboratory Results Results Past 24 Hours Test 03/24/17 11:30 03/24/17 11:46 Range/Units Urine Color YELLOW Urine Appearance CLEAR CLEAR Urine pH 5.0 4.5-7.5 Urine Specific [place] 1.018 1.000-1.030 Urine Protein 1+ NEG Urine Glucose (UA) NEG NEG Urine Ketones NEG NEG Urine Occult Blood 3+ NEG Urine Nitrite NEG NEG Urine Bilirubin NEG NEG Urine Urobilinogen NEG NEG Urine Leukocyte Esterase NEG NEG Urine WBC (Auto) 1-5 0-5 /hpf Urine RBC (Auto) 10-30 0-4 /hpf Urine Hyaline Casts (Auto) 1-5 0-5 /lpf Urine Epithelial Cells (Auto) 10-20 0-5 /lpf Urine Bacteria (Auto) NEG NEG Urine Yeast (Auto) NONE PRSENT Influenza Type A Antigen POS for Influ A NEG Influenza Type B Antigen Neg for Influ B NEG White Blood Count 5.82 4.8-10.8 K/uL Red Blood Count 4.50 4.2-5.4 M/uL Hemoglobin 12.3 12.0-16.0 g/dL Hematocrit 37.5 37-47 % Mean Corpuscular Volume 83.3 80-100 fL Mean Corpuscular Hemoglobin 27.3 25-34 pg Mean Corpuscular Hemoglobin Concent 32.8 32-36 g/dl Platelet Count 188 130-400 K/uL Mean Platelet Volume 10.1 7.4-10.4 fL Neutrophils (%) (Auto) 69.4 % Lymphocytes (%) (Auto) 12.4 % Monocytes (%) (Auto) 17.7 % Eosinophils (%) (Auto) 0.0 % Basophils (%) (Auto) 0.3 % Neutrophils # (Auto) 4.04 1.4-6.5 K/uL Lymphocytes # (Auto) 0.72 1.2-3.4 K/uL Monocytes # (Auto) 1.03 0.11-0.59 K/uL Eosinophils # (Auto) 0.00 0-0.5 K/uL Basophils # (Auto) 0.02 0-0.2 K/uL RDW Standard Deviation 50.4 36.4-46.3 fL RDW Coefficient of Variation 16.5 11.5-14.5 % Immature Granulocyte % (Auto) 0.2 % Immature Granulocyte # (Auto) 0.01 0.00-0.02 K/uL Prothrombin Time 17.5 9.0-12.0 SECONDS Prothromb Time International Ratio 1.7 0.9-1.1 Venous Blood pH 7.37 7.36-7.41 Venous Blood Partial Pressure CO2 46 38.0-50.0 mmHg Venous Blood Partial Pressure O2 94 mmHg Venous Blood HCO3 26 mmol/L Venous Blood Oxygen Saturation 96.6 % Venous Blood Base Excess 0.0 mEq/L Sodium Level 141 136-145 mmol/L Potassium Level 3.4 3.5-5.1 mmol/L Chloride Level 107 98-107 mmol/L Carbon Dioxide Level 25 21-32 mmol/L Anion Gap 9.0 3-11 mmol/L Blood Urea Nitrogen 18 7-18 mg/dl Creatinine 1.02 0.60-1.20 mg/dl Est Creatinine Clear Calc Drug Dose 46.6 ml/min Estimated GFR () 56.5 Estimated GFR (Non- 48.7 BUN/Creatinine Ratio 18.0 10-20 Random Glucose 120 70-99 mg/dl Lactic Acid Level 1.6 0.4-2.0 mmol/L Calcium Level 8.9 8.5-10.1 mg/dl Total Bilirubin 0.3 0.2-1 mg/dl Direct Bilirubin 0.1 0-0.2 mg/dl Aspartate Amino Transf (AST/SGOT) 36 15-37 U/L Alanine Aminotransferase (ALT/SGPT) 27 12-78 U/L Alkaline Phosphatase 60 45-117 U/L Troponin I 0.050 0-0.045 ng/ml Pro-B-Type Natriuretic Peptide 6417 0-1800 pg/ml Total Protein 7.1 6.4-8.2 gm/dl Albumin 2.5 3.4-5.0 gm/dl Lipase 115 73-393 U/L Microbiology Results 03/24/17 Blood Culture, Received Pending 03/24/17 Blood Culture, Received Pending 03/24/17 Urine Culture, Received Pending Impression Assessment and Plan INFLUENZA: -started on tamiflu day#1 -droplet precautions -CXR negative for pneumonia ATRIAL FIBRILLATION: with RVR -continued on metoprolol (patient did not take her meds this AM) -rate likely elevated secondary to respiratory distress and influenza; will give IV lopressor PRN and if needed may start a cardizem drip -anticoagulated on Coumadin, INR 1.7 -monitor INR RECENT LLE WOUND/CELLULITIS: -recent admission for recurrent cellulitis LLE. -has known underlying venous stasis and lymphedema of B/L LE -wound cultures grew MSSA and Pseudomonas aeruginosa -has been on doxycycline and levofloxacin per ID since last hospitalization; continue for now -Consult Wound Care CHRONIC DIASTOLIC CHF -appears euvolemic, possibly slightly hypervolemic per the CXR and elevated BNP but patient reports she has not been taking lasix since Sun. due to low potassium -misses furosemide doses occasionally even at home -s/p furosemide IV once in the ER -will resume home meds HTN: -uncontrolled -continue lisinopril and metoprolol -monitor and titrate DIARRHEA: -check stool for c diff (was negative on recent hospitalization) -probiotics GERD/HIATAL HERNIA: -continue ranitidine HYPOKALEMIA: -replete and recheck -likely from the diarrhea and lasix Level of Care Telemetry Advanced Directives Existing Advance Directive: Yes Existing Living Will: Yes Resuscitation Status FULL RESUSCITATION (If there is a change of meaningful recovery; patient does not want prolonged dependance on "life support") VTE Prophylaxis VTE Risk Assessment Done? Y/N: Yes Risk Level: High Given or contraindicated: Warfarin (Coumadin)
[2017-03-24] MEDS ORDERED: NITROGLYCERIN 0.4 MG SL PER TAB CHARGE UT SCH (16:15)
[2017-03-24] MEDS: WARFARIN SOD 2.5 MG TAB PO SCH (18:09)
[2017-03-24] MEDS ORDERED: METOPROLOL TARTRATE 1 MG/ML VIAL IV PRN (18:30)
[2017-03-24] MEDS: IPRATROPIUM BROMIDE NEB SOLN 0.02% 2.5 ML VIAL INH SCH (19:17)
[2017-03-24] MEDS: LEVALBUTEROL 1.25MG/0.5ML NEB INH SCH (19:17)
[2017-03-24] MEDS: DOXYCYCLINE HYCLATE 100 MG CAP PO SCH (20:35)
[2017-03-24] MEDS: OSELTAMIVIR PHOSPHATE SUSP 30 MG/5 ML UDP PO SCH (20:35)
[2017-03-24] MEDS: NYSTATIN POWDER 15GM BTL EXT SCH (20:36)
[2017-03-24] MEDS ORDERED: LEVALBUTEROL/IPRATROPIUM NEB INH SCH (21:00)
[2017-03-25] VITALS (9 sets, daily range): BP systolic 128–158; BP diastolic 83–92; PULSE 87–118; TEMP 36.7–37.3; O2SAT 94–98
[2017-03-25] MEDS: IPRATROPIUM BROMIDE NEB SOLN 0.02% 2.5 ML VIAL INH SCH ×4 (02:13→21:00)
[2017-03-25] MEDS: LEVALBUTEROL 1.25MG/0.5ML NEB INH SCH ×4 (02:13→21:00)
[2017-03-25 07:22] LABS: HEMATOCRIT 35.3 % (37-47); HEMOGLOBIN 11.7 g/dL (12.0-16.0); MEAN CELL VOLUME 82.5 fL (80-100); MEAN CORPUSCULAR HEMOGLOBIN 27.3 pg (25-34); MEAN CORPUSCULAR HGB CONC 33.1 g/dl (32-36); MEAN PLATELET VOLUME 10.4 fL (7.4-10.4); PLATELET COUNT 179 K/uL (130-400); RED CELL DISTRIBUTION WIDTH CV 16.6 % (11.5-14.5); RED CELL DISTRIBUTION WIDTH SD 50.3 fL (36.4-46.3); WHITE BLOOD COUNT 5.01 K/uL (4.8-10.8)
[2017-03-25 07:36] LABS: INR 1.9 (0.9-1.1)
[2017-03-25 07:57] LABS: CALCIUM 8.9 mg/dl (8.5-10.1); CREATININE 1.11 mg/dl (0.60-1.20); POTASSIUM 3.3 mmol/L (3.5-5.1)
[2017-03-25] MEDS: NYSTATIN POWDER 15GM BTL EXT SCH ×3 (08:43→22:12)
[2017-03-25] MEDS: RANITIDINE HCL 150 MG TAB PO SCH (08:44)
[2017-03-25] MEDS: DOXYCYCLINE HYCLATE 100 MG CAP PO SCH ×2 (08:44→16:35)
[2017-03-25] MEDS: LISINOPRIL 10 MG TAB PO SCH (08:44)
[2017-03-25] MEDS: MAGNESIUM OXIDE 400 MG TAB PO SCH (08:44)
[2017-03-25] MEDS: METOPROLOL SUCC 50MG EXT REL TAB PO SCH (08:45)
[2017-03-25] MEDS: CHOLECALCIFEROL 1000 INTER.UNIT TAB PO SCH (08:45)
[2017-03-25] MEDS: FERROUS SULFATE 325 MG TAB PO SCH (08:45)
[2017-03-25] MEDS: OSELTAMIVIR PHOSPHATE SUSP 30 MG/5 ML UDP PO SCH ×2 (08:46→22:11)
[2017-03-25] MEDS: FUROSEMIDE 40 MG TAB PO SCH (08:50)
[2017-03-25] MEDS ORDERED: POTASSIUM CHLORIDE 20 MEQ TABCR PO SCH (09:00)
[2017-03-25] MEDS ORDERED: METOPROLOL SUCC 50MG EXT REL TAB PO SCH (09:00)
[2017-03-25] MEDS: LEVOFLOXACIN 500 MG TAB PO SCH (11:43)
[2017-03-25] MEDS ORDERED: LOPERAMIDE HCL 2 MG CAP PO PRN (15:00)
[2017-03-25] MEDS: LACTOBACILLUS ACIDOPHILUS (FLORANEX) TAB PO SCH (15:42)
[2017-03-25] MEDS: WARFARIN SOD 2.5 MG TAB PO SCH (15:42)
--- NOTE | 2017-03-25 18:20 | Progress Note ---
Medicine Progress Note Date & Time of Visit: Mar 25, 2017 at 18:19. Subjective Patient reports feeling better overall. Cold symptoms have improved. Only complaint is that her throat sanchez from the tamiflu. No overnight events noted. Tolerating PO without difficulty. Objective Last 8 Hrs Date Time Temp Pulse Resp B/P (MAP) Pulse Ox O2 Delivery O2 Flow Rate FiO2 03/25/17 16:00 Room Air 03/25/17 14:50 37.3 97 19 133/83 (100) 94 Room Air 03/25/17 12:00 Room Air 03/25/17 11:38 36.8 101 19 130/85 (100) 97 Room Air Physical Exam: GENERAL: Patient is in no acute distress. HEENT: No acute trauma, normocephalic, mucous membranes moist, no nasal congestion, no scleral icterus, conjunctivae clear. NECK: No stridor, trachea is midline. LUNGS: Clear to auscultation bilaterally, no wheeze, few rhonchi, breath sounds equal. HEART: Without murmurs gallops or rubs, irregularly irregular ABDOMEN: Soft, nontender, bowel sounds positive EXTREMITIES: No cyanosis; B/L LE edema, intact range of motion of all the extremities, no signs for acute trauma. NEUROLOGIC: Oriented x 3, no acute motor or sensory deficits, no focal weakness. SKIN: No rash, no jaundice, no diaphoresis. Laboratory Results: Last 24 Hours Test 03/25/17 06:49 White Blood Count 5.01 K/uL Red Blood Count 4.28 M/uL Hemoglobin 11.7 g/dL Hematocrit 35.3 % Mean Corpuscular Volume 82.5 fL Mean Corpuscular Hemoglobin 27.3 pg Mean Corpuscular Hemoglobin Concent 33.1 g/dl RDW Standard Deviation 50.3 fL RDW Coefficient of Variation 16.6 % Platelet Count 179 K/uL Mean Platelet Volume 10.4 fL Prothrombin Time 20.1 SECONDS Prothromb Time International Ratio 1.9 Sodium Level 141 mmol/L Potassium Level 3.3 mmol/L Chloride Level 105 mmol/L Carbon Dioxide Level 27 mmol/L Anion Gap 8.0 mmol/L Blood Urea Nitrogen 20 mg/dl Creatinine 1.11 mg/dl Est Creatinine Clear Calc Drug Dose 41.6 ml/min Estimated GFR () 51.0 Estimated GFR (Non- 44.0 BUN/Creatinine Ratio 18.4 Random Glucose 95 mg/dl Calcium Level 8.9 mg/dl Troponin I 0.099 ng/ml Date/Time Source Procedure Growth Status 03/25/17 08:05 Stool C.difficile Toxin B Gene (PCR) - Final No C. difficile toxin B gene detected Complete Assessment & Plan INFLUENZA: -on tamiflu day#2 -CXR negative for pneumonia -no leukocytosis ATRIAL FIBRILLATION: with RVR -continued on metoprolol (patient did not take her meds this AM) -rate likely elevated secondary to respiratory distress and influenza; will give IV lopressor PRN and if needed may start a cardizem drip -anticoagulated on Coumadin, INR 1.7-->1.9 -monitor INR RECENT LLE WOUND/CELLULITIS: -recent admission for recurrent cellulitis LLE. -has known underlying venous stasis and lymphedema of B/L LE -wound cultures grew MSSA and Pseudomonas aeruginosa -has been on doxycycline and levofloxacin per ID since last hospitalization; continued for now -Consult Wound Care CHRONIC DIASTOLIC CHF -appears euvolemic, possibly slightly hypervolemic per the CXR and elevated BNP but patient reports she has not been taking lasix since Sun. due to low potassium -misses furosemide doses occasionally even at home -s/p furosemide IV once in the ER -will resume home meds HTN: -uncontrolled -continue lisinopril and metoprolol -monitor and titrate DIARRHEA: -check stool for c diff (was negative on recent hospitalization) -probiotics GERD/HIATAL HERNIA: -continue ranitidine HYPOKALEMIA: -replete and recheck -likely from the diarrhea and lasix Current Inpatient Medications: Current Inpatient Medications Medications (Trade) Dose Ordered Sig/Ariela Route Start Time Stop Time Status Last Admin Dose Admin Acetaminophen (Tylenol Tab) 650 mg Q4H PRN PO 03/24/17 14:45 04/23/17 14:44 Ondansetron HCl (Zofran Inj) 4 mg Q6H PRN IV 03/24/17 14:45 04/23/17 14:44 Polyethylene (Miralax Powder Packet) 17 gm DAILY PRN PO 03/24/17 14:45 04/23/17 14:44 Oseltamivir Phosphate (Tamiflu Susp) 30 mg BID PO 03/24/17 21:00 03/28/17 21:01 03/25/17 08:46 30 MG Benzonatate (Tessalon Perles Cap) 100 mg Q8 PRN PO 03/24/17 14:45 04/23/17 14:44 03/24/17 15:13 100 MG Cholecalciferol (Vitamin D Tab) 1,000 inter.unit DAILY PO 03/25/17 09:00 04/24/17 08:59 03/25/17 08:45 1,000 INTER.UNIT Doxycycline Hyclate (Vibramycin Cap) 100 mg BID PO 03/24/17 21:00 04/03/17 20:59 03/25/17 16:35 100 MG Furosemide (Lasix Tab) 40 mg DAILY PO 03/25/17 09:00 04/24/17 08:59 03/25/17 08:50 40 MG Levofloxacin (Levaquin Tab) 500 mg DAILY@1100 PO 03/25/17 11:00 04/02/17 11:01 03/25/17 11:43 500 MG Lisinopril (Zestril Tab) 10 mg DAILY PO 03/25/17 09:00 04/24/17 08:59 03/25/17 08:44 10 MG Magnesium Oxide (Mag-Ox Tab) 400 mg DAILY PO 03/25/17 09:00 04/24/17 08:59 03/25/17 08:44 400 MG Metoprolol Succinate (Toprol Xl Tab) 50 mg DAILY PO 03/25/17 09:00 04/24/17 08:59 03/25/17 08:45 50 MG Nitroglycerin (Nitrostat Tab) 0.4 mg UD UT 03/24/17 16:15 04/23/17 16:14 Nystatin (Mycostatin Powder) 1 appln TID EXT 03/24/17 21:00 04/23/17 20:59 03/25/17 14:16 1 APPLN Ranitidine HCl (zANTac TAB) 150 mg DAILY PO 03/25/17 09:00 04/24/17 08:59 03/25/17 08:44 150 MG Warfarin Sodium (Coumadin Tab) 2.5 mg SuTuThSa@1600 PO 03/24/17 16:45 04/23/17 16:44 03/25/17 15:42 2.5 MG Warfarin Sodium (Coumadin Tab) 5 mg MoWeFr@1600 PO 03/26/17 16:00 04/25/17 15:59 Ferrous Sulfate (Feosol Tab) 325 mg DAILY PO 03/25/17 09:00 04/24/17 08:59 03/25/17 08:45 325 MG Ipratropium [place] (Atrovent 0.02% 0.5MG/2.5ML Neb) 0.5 mg Q6R INH 03/24/17 21:00 04/23/17 20:59 03/25/17 07:00 0.5 MG Levalbuterol (Xopenex 1.25MG/ 0.5ML Neb) 1.25 mg Q6R INH 03/24/17 21:00 04/23/17 20:59 03/25/17 07:00 1.25 MG Potassium Chloride (Klor-Con Tab) 40 meq BID PO 03/25/17 21:00 04/24/17 08:59 Lactobacillus Acidophilus (Floranex Tab) 4 tab TIDM PO 03/25/17 16:45 04/24/17 16:44 03/25/17 15:42 4 TAB Loperamide HCl (Imodium Cap) 2 mg PRN PRN PO 03/25/17 15:00 04/24/17 14:59 03/25/17 15:41 2 MG
[2017-03-25] MEDS: POTASSIUM CHLORIDE 20 MEQ TABCR PO SCH (22:12)
[2017-03-26] VITALS (12 sets, daily range): BP systolic 130–175; BP diastolic 77–89; PULSE 66–96; TEMP 36.6–36.9; O2SAT 94–97
[2017-03-26] MEDS: BENZONATATE 100MG CAP PO PRN ×2 (00:27→07:46)
[2017-03-26] MEDS: LEVALBUTEROL 1.25MG/0.5ML NEB INH SCH ×4 (02:18→19:25)
[2017-03-26] MEDS: IPRATROPIUM BROMIDE NEB SOLN 0.02% 2.5 ML VIAL INH SCH ×4 (02:18→19:25)
[2017-03-26 06:52] LABS: HEMATOCRIT 38.9 % (37-47); HEMOGLOBIN 12.8 g/dL (12.0-16.0); MEAN CELL VOLUME 82.2 fL (80-100); MEAN CORPUSCULAR HEMOGLOBIN 27.1 pg (25-34); MEAN CORPUSCULAR HGB CONC 32.9 g/dl (32-36); MEAN PLATELET VOLUME 10.3 fL (7.4-10.4); PLATELET COUNT 216 K/uL (130-400); RED CELL DISTRIBUTION WIDTH CV 16.3 % (11.5-14.5); RED CELL DISTRIBUTION WIDTH SD 49.5 fL (36.4-46.3); WHITE BLOOD COUNT 5.68 K/uL (4.8-10.8)
[2017-03-26 07:18] LABS: INR 2.3 (0.9-1.1)
[2017-03-26 07:29] LABS: CALCIUM 8.7 mg/dl (8.5-10.1); CREATININE 1.14 mg/dl (0.60-1.20); POTASSIUM 3.9 mmol/L (3.5-5.1)
[2017-03-26] MEDS: FERROUS SULFATE 325 MG TAB PO SCH (07:46)
[2017-03-26] MEDS: NYSTATIN POWDER 15GM BTL EXT SCH ×3 (07:46→21:17)
[2017-03-26] MEDS: RANITIDINE HCL 150 MG TAB PO SCH (07:46)
[2017-03-26] MEDS: DOXYCYCLINE HYCLATE 100 MG CAP PO SCH ×2 (07:46→21:17)
[2017-03-26] MEDS: POTASSIUM CHLORIDE 20 MEQ TABCR PO SCH ×2 (07:47→21:17)
[2017-03-26] MEDS: FUROSEMIDE 40 MG TAB PO SCH (07:47)
[2017-03-26] MEDS: LISINOPRIL 10 MG TAB PO SCH (07:47)
[2017-03-26] MEDS: CHOLECALCIFEROL 1000 INTER.UNIT TAB PO SCH (07:48)
[2017-03-26] MEDS: METOPROLOL SUCC 50MG EXT REL TAB PO SCH (07:48)
[2017-03-26] MEDS: LACTOBACILLUS ACIDOPHILUS (FLORANEX) TAB PO SCH ×3 (07:48→15:35)
[2017-03-26] MEDS: MAGNESIUM OXIDE 400 MG TAB PO SCH (07:48)
[2017-03-26] MEDS: OSELTAMIVIR PHOSPHATE SUSP 30 MG/5 ML UDP PO SCH ×2 (07:50→21:16)
--- NOTE | 2017-03-26 08:32 | Clinical Documentation Query ---
CLINICAL DOCUMENTATION QUERY QUERY 1 OF 3 87 yo female admitted for flu-like symptoms, SOB and vomiting. In your clinical opinion is this patient being managed for: ( ) Type 2 [place] d/t demand ischemia (x ) Not Agree ( ) Other explanation of clinical findings (Please Explain) ( ) Unable to determine (Please Define) ( ) Need to Discuss The medical record reflects the following clinical findings, treatment, and risk factors. Clinical Indicators: EKG = ST & T wave abnormality, consider inferior and lateral ischemia, troponin 0.050 trending up to 0.099 Treatment: Telemetry, serial troponins, serial EKGs Risk Factors: Age, influenza, CHF exacerbation, A-fib, HTN QUERY 2 OF 3 In your clinical opinion is this patient being managed for: ( ) Acute on chronic diastolic CHF treated with IV Lasix and continued home therapy ( ) Not Agree ( ) Other explanation of clinical findings (Please Explain) ( ) Unable to determine (Please Define) ( ) Need to Discuss The medical record reflects the following clinical findings, treatment, and risk factors. Clinical Indicators: CXR moderate cardiomegaly/mild pulmonary edema, pro-bnp [id number], Treatment: IV Lasix, PO Lasix, telemetry, I&O Risk Factors: Age, chronic CHF, medication noncompliance, A-fib QUERY 3 OF 3 In your clinical opinion is this patient being managed for: ( ) Chronic kidney disease, stage 3 ( ) Not Agree ( ) Other explanation of clinical findings (Please Explain) ( ) Unable to determine (Please Define) ( ) Need to Discuss The medical record reflects the following clinical findings, treatment, and risk factors. Clinical Indicators: GFR range over one month timeframe 36.0 to 55.9 Treatment: Serial PRPs, I&Os, telemetry Risk Factors: Age, CHF, HTN, A-fib Please clarify and document your clinical opinion in the progress notes and discharge summary. Terms such as "probable", "suspected", "likely", "questionable", "possible", or "still to be ruled out" are acceptable. IF IN AGREEMENT, YOU MUST DOCUMENT ABOVE DIAGNOSTIC STATEMENT IN DAILY PROGRESS NOTES AND DISCHARGE SUMMARY. This document is not part of the patient's record. Thank You, Gala Ruiz RN [phone]
[2017-03-26] MEDS ORDERED: MAGNESIUM SULFATE 1GM / D5W 1 GM in PREMIXED IN D5W 100 ML IV STA (10:02)
[2017-03-26] MEDS: LEVOFLOXACIN 500 MG TAB PO SCH (10:56)
[2017-03-26] MEDS ORDERED: NURSING DECISION MEDICATION ORDER SCH (13:30)
[2017-03-26] MEDS ORDERED: WARFARIN SOD 5 MG TAB PO SCH (16:00)
--- NOTE | 2017-03-26 18:34 | Progress Note ---
Medicine Progress Note Date & Time of Visit: Mar 26, 2017 at 18:34. Subjective Patient doing well, states she still has some cough and some SOB but feels much better. No overnight events noted. Tolerating PO. Denies any other complaints. Is repeating some of the same topics of discussion as yesterday. Still has diarrhea. States her leg wound is weeping again. Objective Last 8 Hrs Date Time Temp Pulse Resp B/P (MAP) Pulse Ox O2 Delivery O2 Flow Rate FiO2 03/26/17 16:00 Room Air 03/26/17 15:44 36.6 84 20 144/81 (102) 94 Room Air 03/26/17 14:30 83 18 95 Room Air 03/26/17 13:11 132/77 (95) 03/26/17 12:00 Room Air 03/26/17 11:51 36.7 66 22 175/79 (111) 95 Nasal Cannula 4.0 Physical Exam: GENERAL: Patient is in no acute distress. HEENT: No acute trauma, normocephalic, mucous membranes moist, no nasal congestion, no scleral icterus, conjunctivae clear. NECK: No stridor, trachea is midline. LUNGS: Clear to auscultation bilaterally, no wheeze, few rhonchi, breath sounds equal. HEART: Without murmurs gallops or rubs, irregularly irregular ABDOMEN: Soft, nontender, bowel sounds positive EXTREMITIES: No cyanosis; B/L LE edema, intact range of motion of all the extremities, no signs for acute trauma. NEUROLOGIC: Oriented x 3, no acute motor or sensory deficits, no focal weakness. SKIN: No rash, no jaundice, no diaphoresis. Laboratory Results: Last 24 Hours Test 03/26/17 06:39 White Blood Count 5.68 K/uL Red Blood Count 4.73 M/uL Hemoglobin 12.8 g/dL Hematocrit 38.9 % Mean Corpuscular Volume 82.2 fL Mean Corpuscular Hemoglobin 27.1 pg Mean Corpuscular Hemoglobin Concent 32.9 g/dl RDW Standard Deviation 49.5 fL RDW Coefficient of Variation 16.3 % Platelet Count 216 K/uL Mean Platelet Volume 10.3 fL Prothrombin Time 23.4 SECONDS Prothromb Time International Ratio 2.3 Sodium Level 138 mmol/L Potassium Level 3.9 mmol/L Chloride Level 104 mmol/L Carbon Dioxide Level 28 mmol/L Anion Gap 6.0 mmol/L Blood Urea Nitrogen 21 mg/dl Creatinine 1.14 mg/dl Est Creatinine Clear Calc Drug Dose 40.5 ml/min Estimated GFR () 49.4 Estimated GFR (Non- 42.6 BUN/Creatinine Ratio 18.1 Random Glucose 95 mg/dl Calcium Level 8.7 mg/dl Magnesium Level 1.5 mg/dl Assessment & Plan INFLUENZA: -on tamiflu day#3 -CXR negative for pneumonia -no leukocytosis -continued on scheduled nebs ATRIAL FIBRILLATION: with RVR improved -continued on metoprolol (patient did not take her meds this AM) -rate likely elevated secondary to respiratory distress and influenza -anticoagulated on Coumadin, INR 1.7-->1.9-->2.3 -monitor INR RECENT LLE WOUND/CELLULITIS: -recent admission for recurrent cellulitis LLE. -has known underlying venous stasis and lymphedema of B/L LE -wound cultures grew MSSA and Pseudomonas aeruginosa -has been on doxycycline and levofloxacin per ID since last hospitalization; continued for now -Consult Wound Care CHRONIC DIASTOLIC CHF -appears euvolemic, possibly slightly hypervolemic per the CXR and elevated BNP but patient reports she has not been taking lasix since Sun. due to low potassium -misses furosemide doses occasionally even at home -s/p furosemide IV once in the ER -will resume home meds HTN: -uncontrolled -continue lisinopril and metoprolol -monitor and titrate DIARRHEA: -check stool for c diff (was negative on recent hospitalization) -probiotics GERD/HIATAL HERNIA: -continue ranitidine HYPOKALEMIA/HYPOMAGNESEMIA: -replete and recheck -likely from the diarrhea and lasix Current Inpatient Medications: Current Inpatient Medications Medications (Trade) Dose Ordered Sig/Ariela Route Start Time Stop Time Status Last Admin Dose Admin Acetaminophen (Tylenol Tab) 650 mg Q4H PRN PO 03/24/17 14:45 04/23/17 14:44 Ondansetron HCl (Zofran Inj) 4 mg Q6H PRN IV 03/24/17 14:45 04/23/17 14:44 Polyethylene (Miralax Powder Packet) 17 gm DAILY PRN PO 03/24/17 14:45 04/23/17 14:44 Oseltamivir Phosphate (Tamiflu Susp) 30 mg BID PO 03/24/17 21:00 03/28/17 21:01 03/26/17 07:50 30 MG Benzonatate (Tessalon Perles Cap) 100 mg Q8 PRN PO 03/24/17 14:45 04/23/17 14:44 03/26/17 07:46 100 MG Cholecalciferol (Vitamin D Tab) 1,000 inter.unit DAILY PO 03/25/17 09:00 04/24/17 08:59 03/26/17 07:48 1,000 INTER.UNIT Doxycycline Hyclate (Vibramycin Cap) 100 mg BID PO 03/24/17 21:00 04/03/17 20:59 03/26/17 07:46 100 MG Furosemide (Lasix Tab) 40 mg DAILY PO 03/25/17 09:00 04/24/17 08:59 03/26/17 07:47 40 MG Levofloxacin (Levaquin Tab) 500 mg DAILY@1100 PO 03/25/17 11:00 04/02/17 11:01 03/26/17 10:56 500 MG Lisinopril (Zestril Tab) 10 mg DAILY PO 03/25/17 09:00 04/24/17 08:59 03/26/17 07:47 10 MG Magnesium Oxide (Mag-Ox Tab) 400 mg DAILY PO 03/25/17 09:00 04/24/17 08:59 03/26/17 07:48 400 MG Metoprolol Succinate (Toprol Xl Tab) 50 mg DAILY PO 03/25/17 09:00 04/24/17 08:59 03/26/17 07:48 50 MG Nitroglycerin (Nitrostat Tab) 0.4 mg UD UT 03/24/17 16:15 04/23/17 16:14 Nystatin (Mycostatin Powder) 1 appln TID EXT 03/24/17 21:00 04/23/17 20:59 03/26/17 07:46 1 APPLN Ranitidine HCl (zANTac TAB) 150 mg DAILY PO 03/25/17 09:00 04/24/17 08:59 03/26/17 07:46 150 MG Warfarin Sodium (Coumadin Tab) 2.5 mg SuTuThSa@1600 PO 03/24/17 16:45 04/23/17 16:44 03/25/17 15:42 2.5 MG Warfarin Sodium (Coumadin Tab) 5 mg MoWeFr@1600 PO 03/26/17 16:00 04/25/17 15:59 03/26/17 15:35 5 MG Ferrous Sulfate (Feosol Tab) 325 mg DAILY PO 03/25/17 09:00 04/24/17 08:59 03/26/17 07:46 325 MG Ipratropium [place] (Atrovent 0.02% 0.5MG/2.5ML Neb) 0.5 mg Q6R INH 03/24/17 21:00 04/23/17 20:59 03/26/17 14:30 0.5 MG Levalbuterol (Xopenex 1.25MG/ 0.5ML Neb) 1.25 mg Q6R INH 03/24/17 21:00 04/23/17 20:59 03/26/17 14:30 1.25 MG Potassium Chloride (Klor-Con Tab) 40 meq BID PO 03/25/17 21:00 04/24/17 08:59 03/26/17 07:47 40 MEQ Lactobacillus Acidophilus (Floranex Tab) 4 tab TIDM PO 03/25/17 16:45 04/24/17 16:44 03/26/17 15:35 4 TAB Loperamide HCl (Imodium Cap) 2 mg PRN PRN PO 03/25/17 15:00 04/24/17 14:59 03/25/17 15:41 2 MG Multi-Ingredient Ointment (Eucerin Unscented Cr) 1 appln BID EXT 03/26/17 21:00 04/25/17 20:59
[2017-03-26] MEDS: EUCERIN CR 120 GM JAR EXT SCH (21:17)
[2017-03-27] VITALS (10 sets, daily range): BP systolic 128–146; BP diastolic 68–85; PULSE 68–97; TEMP 36.9–37; O2SAT 91–97
[2017-03-27] MEDS: IPRATROPIUM BROMIDE NEB SOLN 0.02% 2.5 ML VIAL INH SCH ×4 (02:24→19:44)
[2017-03-27] MEDS: LEVALBUTEROL 1.25MG/0.5ML NEB INH SCH ×4 (02:24→19:44)
[2017-03-27 06:29] LABS: BASO % 0.7 %; BASO ABS # 0.04 K/uL (0-0.2); EOS % 0.6 %; EOS ABS # 0.03 K/uL (0-0.5); HEMATOCRIT 39.5 % (37-47); HEMOGLOBIN 12.9 g/dL (12.0-16.0); IG# 0.01 K/uL (0.00-0.02); LYMPH % 25.9 %; LYMPH ABS # 1.41 K/uL (1.2-3.4); MEAN CORPUSCULAR HEMOGLOBIN 27.1 pg (25-34); MEAN CORPUSCULAR HGB CONC 32.7 g/dl (32-36); MEAN PLATELET VOLUME 10.8 fL (7.4-10.4); MONO % 16.4 %; MONO ABS # 0.89 K/uL (0.11-0.59); NEUT % 56.2 %; NEUT ABS # 3.06 K/uL (1.4-6.5); PLATELET COUNT 218 K/uL (130-400); RED CELL DISTRIBUTION WIDTH CV 16.4 % (11.5-14.5); RED CELL DISTRIBUTION WIDTH SD 49.7 fL (36.4-46.3); WHITE BLOOD COUNT 5.44 K/uL (4.8-10.8)
[2017-03-27 06:39] LABS: INR 3.2 (0.9-1.1)
[2017-03-27 07:03] LABS: CALCIUM 8.8 mg/dl (8.5-10.1); CREATININE 1.13 mg/dl (0.60-1.20); POTASSIUM 4.1 mmol/L (3.5-5.1)
--- NOTE | 2017-03-27 08:18 | ORTHOPEDIC CONSULTATION ---
DATE OF ADMISSION: 03/24/2017 CHIEF COMPLAINT: Left knee pain, orthopedically related. HISTORY OF PRESENT ILLNESS: Sue is a delightful patient. She is 87. 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 She has had injections in the past, that helped her. She has had no surgery. She states the injections were quite helpful for a period of time and then lost their efficacy. She remains very alert, oriented, knows exactly what is going on. She felt that her knee was getting a little bit weak and a little bit unstable. She is not a surgical candidate. PAST MEDICAL HISTORY: AFib, bladder stimulator, GERD, heart failure, DVT, hypertension, lymphedema. She also has history of multiple ulcerations, multiple antibiotic treatments. SOCIAL HISTORY: All reviewed. MEDICATIONS: Reviewed. She is having almost 20 medications. PHYSICAL EXAMINATION: GENERAL: She denies any fever, sweats, chills. HEENT: Ear, nose and throat negative. LUNGS: Positive for some shortness of breath and some palpitations. ABDOMEN: No pain, no nausea. MUSCULOSKELETAL: Benign. She has large boggy knees bilaterally, left greater than right, but no breakdown, some medial joint line, lateral joint line tenderness. There is no warmth, erythema, edema. There is no gross instability. X-RAYS: Not indicated. IMPRESSION: End-stage arthritis of the knees. DISPOSITION: The best thing we can do was a scooter for support. She informs me she has one. A walker with wheels or stationary walker is also appropriate. Therapy sounds good. She has tried that numerous times. Injections have been tried as well and I think there is no additional efficacy of more injections and she is not a surgical candidate. She will have to be treated symptomatically. She can be discharged. She will return home at any time.
[2017-03-27] MEDS: OSELTAMIVIR PHOSPHATE SUSP 30 MG/5 ML UDP PO SCH ×2 (09:00→20:42)
[2017-03-27] MEDS: EUCERIN CR 120 GM JAR EXT SCH ×2 (09:07→20:44)
[2017-03-27] MEDS: LACTOBACILLUS ACIDOPHILUS (FLORANEX) TAB PO SCH ×3 (09:08→17:26)
[2017-03-27] MEDS: CHOLECALCIFEROL 1000 INTER.UNIT TAB PO SCH (09:08)
[2017-03-27] MEDS: RANITIDINE HCL 150 MG TAB PO SCH (09:08)
[2017-03-27] MEDS: METOPROLOL SUCC 50MG EXT REL TAB PO SCH (09:08)
[2017-03-27] MEDS: MAGNESIUM OXIDE 400 MG TAB PO SCH (09:09)
[2017-03-27] MEDS: FUROSEMIDE 40 MG TAB PO SCH (09:09)
[2017-03-27] MEDS: DOXYCYCLINE HYCLATE 100 MG CAP PO SCH ×2 (09:09→20:43)
[2017-03-27] MEDS: FERROUS SULFATE 325 MG TAB PO SCH (09:09)
[2017-03-27] MEDS: POTASSIUM CHLORIDE 20 MEQ TABCR PO SCH (09:09)
[2017-03-27] MEDS: LISINOPRIL 10 MG TAB PO SCH (09:10)
[2017-03-27] MEDS: NYSTATIN POWDER 15GM BTL EXT SCH ×3 (09:10→20:43)
--- NOTE | 2017-03-27 10:46 | Progress Note ---
Internal Med Progress Note Date of Service: Mar 27, 2017. Provider Documentation: SUBJECTIVE: Seen and examined at bedside States feeling better Less cough, chronic SOB Denies chest pain, dizziness, nausea OBJECTIVE: Vital Signs-as noted below Physical Exam: General Appearance:Obese, no apparent distress Head: normocephalic, Atraumatic Eyes: normal inspection, EOMI, PERRL Neck: supple, Trachea midline Respiratory/Chest: Normal breath sounds, CTA Cardiovascular: Irregularly Irregular, No murmur Abdomen/GI:Soft, Non tender, Bowel sounds present Extremities/Musculoskelatal:normal inspection, B/L 2+ edema Neurologic/Psych:grossly no focal neurological deficits Skin: normal color, warm Lab data as noted below. ASSESSMENT & PLAN: Influenza: Continue Tamiflu day # 4 CXR: no signs of consolidation AFib RVR: Rate controlled continued metoprolol Continue Coumadin Monitor INR:3.2 today Recent LLE Wound/Cellulitis: has known underlying venous stasis and lymphedema of B/L LE wound cultures grew MSSA and Pseudomonas aeruginosa Continue doxycycline and levofloxacin per ID last hospitalization: Needs 1 week more of antibiotics Continue wound Care Needs Wound Care follow up as outpatient Chronic Diastolic CHF: Appears euvolemic Continue PO lasix monitor electrolytes HTN: stable continue lisinopril, metoprolol monitor Diarrhea: stool for c.diff: negative continue probiotics Severe Arthritis B/L Knees: Appreciate Ortho Input Pain control PT/OT GERD/Hiatal Hernia: continue ranitidine Hypokalemia/Hypomagnesemia: replace and monitor DVT Px; On coumadin Code Status: Full Code Disposition: PT/OT recommends Rehab Patient states having financial issues and would like to consider Rehab if her Insurance approves Field Care Coordinator consulted Vital Signs: Date Time Temp Pulse Resp B/P (MAP) Pulse Ox O2 Delivery O2 Flow Rate FiO2 03/27/17 08:00 Room Air 03/27/17 08:00 37.0 78 20 128/78 (95) 96 Room Air 03/27/17 07:05 78 18 96 Room Air 03/27/17 04:18 36.9 97 20 146/85 (105) 91 03/27/17 04:00 Room Air 03/27/17 02:24 78 18 94 Room Air 03/27/17 00:00 Room Air 03/26/17 23:46 36.8 84 18 144/82 (102) 96 Room Air 03/26/17 20:13 36.7 88 20 134/77 (96) 94 Room Air 03/26/17 20:00 Room Air 03/26/17 19:25 84 18 96 Room Air 03/26/17 16:00 Room Air 03/26/17 15:44 36.6 84 20 144/81 (102) 94 Room Air 03/26/17 14:30 83 18 95 Room Air 03/26/17 13:11 132/77 (95) 03/26/17 12:00 Room Air 03/26/17 11:51 36.7 66 22 175/79 (111) 95 Nasal Cannula 4.0 Lab Results: Results Past 24 Hours Test 03/27/17 05:47 Range/Units White Blood Count 5.44 4.8-10.8 K/uL Red Blood Count 4.76 4.2-5.4 M/uL Hemoglobin 12.9 12.0-16.0 g/dL Hematocrit 39.5 37-47 % Mean Corpuscular Volume 83.0 80-100 fL Mean Corpuscular Hemoglobin 27.1 25-34 pg Mean Corpuscular Hemoglobin Concent 32.7 32-36 g/dl Platelet Count 218 130-400 K/uL Mean Platelet Volume 10.8 7.4-10.4 fL Neutrophils (%) (Auto) 56.2 % Lymphocytes (%) (Auto) 25.9 % Monocytes (%) (Auto) 16.4 % Eosinophils (%) (Auto) 0.6 % Basophils (%) (Auto) 0.7 % Neutrophils # (Auto) 3.06 1.4-6.5 K/uL Lymphocytes # (Auto) 1.41 1.2-3.4 K/uL Monocytes # (Auto) 0.89 0.11-0.59 K/uL Eosinophils # (Auto) 0.03 0-0.5 K/uL Basophils # (Auto) 0.04 0-0.2 K/uL RDW Standard Deviation 49.7 36.4-46.3 fL RDW Coefficient of Variation 16.4 11.5-14.5 % Immature Granulocyte % (Auto) 0.2 % Immature Granulocyte # (Auto) 0.01 0.00-0.02 K/uL Prothrombin Time 33.1 9.0-12.0 SECONDS Prothromb Time International Ratio 3.2 0.9-1.1 Sodium Level 138 136-145 mmol/L Potassium Level 4.1 3.5-5.1 mmol/L Chloride Level 104 98-107 mmol/L Carbon Dioxide Level 29 21-32 mmol/L Anion Gap 5.0 3-11 mmol/L Blood Urea Nitrogen 21 7-18 mg/dl Creatinine 1.13 0.60-1.20 mg/dl Est Creatinine Clear Calc Drug Dose 40.8 ml/min Estimated GFR () 49.9 Estimated GFR (Non- 43.1 BUN/Creatinine Ratio 18.8 10-20 Random Glucose 99 70-99 mg/dl Calcium Level 8.8 8.5-10.1 mg/dl Magnesium Level 1.7 1.8-2.4 mg/dl
[2017-03-27] MEDS ORDERED: MAGNESIUM SULFATE 1GM / D5W 1 GM in PREMIXED IN D5W 100 ML IV ONE (11:00)
[2017-03-27] MEDS: LEVOFLOXACIN 500 MG TAB PO SCH (11:26)
[2017-03-27] MEDS: WARFARIN SOD 2.5 MG TAB PO SCH (17:26)
[2017-03-27] MEDS ORDERED: NURSING VERBAL MED ORDER ONE (21:15)
[2017-03-28 00:30] VITALS: O2SAT 95
[2017-03-28 01:30] VITALS: PULSE 76; O2SAT 93
[2017-03-28] MEDS: IPRATROPIUM BROMIDE NEB SOLN 0.02% 2.5 ML VIAL INH SCH ×2 (01:30→07:24)
[2017-03-28] MEDS: LEVALBUTEROL 1.25MG/0.5ML NEB INH SCH ×2 (01:30→07:24)
[2017-03-28 06:28] LABS: INR 4.3 (0.9-1.1)
[2017-03-28 06:42] LABS: CALCIUM 9.1 mg/dl (8.5-10.1); CREATININE 1.18 mg/dl (0.60-1.20); POTASSIUM 4.3 mmol/L (3.5-5.1)
[2017-03-28 07:25] VITALS: PULSE 84; O2SAT 99
[2017-03-28 07:27] VITALS: BP 130/82; PULSE 79; TEMP 37; O2SAT 95
[2017-03-28] MEDS: DOXYCYCLINE HYCLATE 100 MG CAP PO SCH ×2 (08:18→16:58)
[2017-03-28] MEDS: FERROUS SULFATE 325 MG TAB PO SCH (08:18)
[2017-03-28] MEDS: LISINOPRIL 10 MG TAB PO SCH (08:18)
[2017-03-28] MEDS: CHOLECALCIFEROL 1000 INTER.UNIT TAB PO SCH (08:18)
[2017-03-28] MEDS: RANITIDINE HCL 150 MG TAB PO SCH (08:18)
[2017-03-28] MEDS: MAGNESIUM OXIDE 400 MG TAB PO SCH (08:19)
[2017-03-28] MEDS: FUROSEMIDE 40 MG TAB PO SCH (08:19)
[2017-03-28] MEDS: METOPROLOL SUCC 50MG EXT REL TAB PO SCH (08:19)
[2017-03-28] MEDS: NYSTATIN POWDER 15GM BTL EXT SCH ×3 (08:20→19:53)
[2017-03-28] MEDS: LACTOBACILLUS ACIDOPHILUS (FLORANEX) TAB PO SCH ×3 (08:20→17:02)
[2017-03-28] MEDS: EUCERIN CR 120 GM JAR EXT SCH ×2 (08:20→19:54)
[2017-03-28] MEDS: OSELTAMIVIR PHOSPHATE SUSP 30 MG/5 ML UDP PO SCH ×2 (08:25→20:39)
[2017-03-28] MEDS ORDERED: POTASSIUM CHLORIDE 20 MEQ TABCR PO SCH (09:00)
[2017-03-28] MEDS ORDERED: IPRATROPIUM BROMIDE NEB SOLN 0.02% 2.5 ML VIAL INH PRN (10:00)
[2017-03-28] MEDS ORDERED: LEVALBUTEROL 1.25MG/0.5ML NEB INH PRN (10:00)
[2017-03-28] MEDS: LEVOFLOXACIN 500 MG TAB PO SCH (11:35)
[2017-03-28] MEDS ORDERED: LEVALBUTEROL 1.25MG/0.5ML NEB INH SCH (15:00)
[2017-03-28] MEDS ORDERED: IPRATROPIUM BROMIDE NEB SOLN 0.02% 2.5 ML VIAL INH SCH (15:00)
--- NOTE | 2017-03-28 15:21 | Progress Note ---
Internal Med Progress Note Date of Service: Mar 28, 2017. Provider Documentation: SUBJECTIVE: Seen and examined at bedside Minimal dry cough No new complaints chronic SOB Denies chest pain, dizziness, nausea, bleeding issues Daughter at bedside OBJECTIVE: Vital Signs-as noted below Physical Exam: General Appearance:Obese, no apparent distress Head: normocephalic, Atraumatic Eyes: normal inspection, EOMI, PERRL Neck: supple, Trachea midline Respiratory/Chest: Normal breath sounds, CTA Cardiovascular: Irregularly Irregular, No murmur Abdomen/GI:Soft, Non tender, Bowel sounds present Extremities/Musculoskelatal:normal inspection, B/L 2+ edema Neurologic/Psych:grossly no focal neurological deficits Skin: normal color, warm Lab data as noted below. ASSESSMENT & PLAN: Influenza: Continue Tamiflu day # 5 CXR: no signs of consolidation AFib RVR: Rate controlled continued metoprolol Hold Coumadin Monitor INR:4.3 today Recent LLE Wound/Cellulitis: has known underlying venous stasis and lymphedema of B/L LE wound cultures grew MSSA and Pseudomonas aeruginosa Continue doxycycline and levofloxacin per ID last hospitalization: # Needs 6 more days of PO antibiotics Continue wound Care Needs Wound Care follow up as outpatient Chronic Diastolic CHF: Appears euvolemic Continue PO lasix monitor electrolytes HTN: stable continue lisinopril, metoprolol monitor Diarrhea: stool for c.diff: negative continue probiotics Severe Arthritis B/L Knees: Appreciate Ortho Input Pain control PT/OT GERD/Hiatal Hernia: continue ranitidine Hypokalemia/Hypomagnesemia: Hypokalemia resolved replace and monitor DVT Px; Coumadin on Hold INR supra therapeutic Code Status: Full Code Disposition: PT/OT recommends Rehab Patient states having financial issues and would like to consider Rehab if her Insurance approves Flare Worker consulted Vital Signs: Date Time Temp Pulse Resp B/P (MAP) Pulse Ox O2 Delivery O2 Flow Rate FiO2 03/28/17 08:00 Room Air 03/28/17 07:27 37.0 79 18 130/82 (98) 95 Room Air 03/28/17 07:25 84 18 99 Room Air 03/28/17 01:30 76 18 93 Room Air 03/28/17 00:30 95 Room Air 03/27/17 23:15 37.0 87 20 141/83 (102) 95 Room Air 1/30/18 19:44 96 18 95 Room Air 03/27/17 16:18 37.0 68 18 134/68 (90) 96 03/27/17 16:00 Room Air 03/27/17 15:38 37.0 88 18 94 4.0 Lab Results: Results Past 24 Hours Test 03/28/17 05:25 Range/Units Prothrombin Time 43.5 9.0-12.0 SECONDS Prothromb Time International Ratio 4.3 0.9-1.1 Sodium Level 137 136-145 mmol/L Potassium Level 4.3 3.5-5.1 mmol/L Chloride Level 103 98-107 mmol/L Carbon Dioxide Level 28 21-32 mmol/L Anion Gap 6.0 3-11 mmol/L Blood Urea Nitrogen 21 7-18 mg/dl Creatinine 1.18 0.60-1.20 mg/dl Est Creatinine Clear Calc Drug Dose 39.1 ml/min Estimated GFR () 47.4 Estimated GFR (Non- 40.9 BUN/Creatinine Ratio 18.1 10-20 Random Glucose 100 70-99 mg/dl Calcium Level 9.1 8.5-10.1 mg/dl Magnesium Level 1.8 1.8-2.4 mg/dl
[2017-03-28 15:45] VITALS: BP 125/56; PULSE 97; TEMP 37.2; O2SAT 92
[2017-03-28 23:40] VITALS: BP 148/86; PULSE 82; TEMP 37; O2SAT 95
[2017-03-29 07:12] VITALS: BP 137/82; PULSE 91; TEMP 37.1; O2SAT 94
[2017-03-29 07:33] LABS: INR 3.7 (0.9-1.1)
[2017-03-29 07:50] LABS: CALCIUM 8.9 mg/dl (8.5-10.1); CREATININE 1.18 mg/dl (0.60-1.20)
[2017-03-29] MEDS: NYSTATIN POWDER 15GM BTL EXT SCH ×2 (08:21→13:26)
[2017-03-29] MEDS: EUCERIN CR 120 GM JAR EXT SCH (08:21)
[2017-03-29] MEDS: LACTOBACILLUS ACIDOPHILUS (FLORANEX) TAB PO SCH ×2 (08:21→13:26)
[2017-03-29] MEDS: CHOLECALCIFEROL 1000 INTER.UNIT TAB PO SCH (08:22)
[2017-03-29] MEDS: METOPROLOL SUCC 50MG EXT REL TAB PO SCH (08:22)
[2017-03-29] MEDS: RANITIDINE HCL 150 MG TAB PO SCH (08:22)
[2017-03-29] MEDS: LISINOPRIL 10 MG TAB PO SCH (08:22)
[2017-03-29] MEDS: MAGNESIUM OXIDE 400 MG TAB PO SCH (08:23)
[2017-03-29] MEDS: FERROUS SULFATE 325 MG TAB PO SCH (08:23)
[2017-03-29] MEDS: FUROSEMIDE 40 MG TAB PO SCH (08:23)
[2017-03-29] MEDS: DOXYCYCLINE HYCLATE 100 MG CAP PO SCH (08:23)
[2017-03-29] MEDS ORDERED: POTASSIUM CHLORIDE 20 MEQ TABCR PO SCH (09:00)
[2017-03-29] MEDS: LEVOFLOXACIN 500 MG TAB PO SCH (13:26)
--- NOTE | 2017-03-29 14:41 | Progress Note ---
Internal Med Progress Note Date of Service: Mar 29, 2017. Provider Documentation: SUBJECTIVE: Seen and examined at bedside Feels tired, otherwise doing well Family at bedside Minimal dry cough No new complaints chronic SOB Denies chest pain, dizziness, nausea, bleeding issues OBJECTIVE: Vital Signs-as noted below Physical Exam: General Appearance:Obese, no apparent distress Head: normocephalic, Atraumatic Eyes: normal inspection, EOMI, PERRL Neck: supple, Trachea midline Respiratory/Chest: Normal breath sounds, CTA Cardiovascular: Irregularly Irregular, No murmur Abdomen/GI:Soft, Non tender, Bowel sounds present Extremities/Musculoskelatal:normal inspection, B/L 2+ edema Neurologic/Psych:grossly no focal neurological deficits Skin: normal color, warm Lab data as noted below. ASSESSMENT & PLAN: Influenza: Completed Tamiflu day # 5 CXR: no signs of consolidation AFib RVR: Rate controlled continued metoprolol Hold Coumadin today Monitor INR:3.7 today Recent LLE Wound/Cellulitis: has known underlying venous stasis and lymphedema of B/L LE wound cultures grew MSSA and Pseudomonas aeruginosa Continue doxycycline and levofloxacin per ID last hospitalization: # Needs 5 more days of PO antibiotics Continue wound Care Needs Wound Care follow up as outpatient Chronic Diastolic CHF: Appears euvolemic Continue PO lasix monitor electrolytes HTN: stable continue lisinopril, metoprolol monitor Diarrhea: stool for c.diff: negative continue probiotics Severe Arthritis B/L Knees: Appreciate Ortho Input Pain control PT/OT GERD/Hiatal Hernia: continue ranitidine Hypokalemia/Hypomagnesemia: Hypokalemia resolved replace and monitor DVT Px; Coumadin on Hold INR supra therapeutic Code Status: Full Code Disposition: Plan to discharge to SNF today Follow up with your Primary Care Physician in 1 week after being discharged from SNF Follow up with wound clinic ( and ) in 1 week as advised Complete the antibiotic course as per recommendations from ID (5 more days) Get PT/INR checked daily at SNF Follow up with physician at SNF for further Coumadin dosage based on your INR No Coumadin today Vital Signs: Date Time Temp Pulse Resp B/P (MAP) Pulse Ox O2 Delivery O2 Flow Rate FiO2 03/29/17 08:15 Room Air 03/29/17 07:12 37.1 91 18 137/82 (100) 94 Room Air 03/29/17 00:00 Room Air 03/28/17 23:40 37.0 82 18 148/86 (106) 95 Room Air 03/28/17 20:00 Room Air 03/28/17 16:05 Room Air 03/28/17 15:45 37.2 97 18 125/56 (79) 92 Room Air Lab Results: Results Past 24 Hours Test 03/29/17 06:52 Range/Units Prothrombin Time 38.1 9.0-12.0 SECONDS Prothromb Time International Ratio 3.7 0.9-1.1 Sodium Level 138 136-145 mmol/L Potassium Level 4.0 3.5-5.1 mmol/L Chloride Level 101 98-107 mmol/L Carbon Dioxide Level 31 21-32 mmol/L Anion Gap 6.0 3-11 mmol/L Blood Urea Nitrogen 21 7-18 mg/dl Creatinine 1.18 0.60-1.20 mg/dl Est Creatinine Clear Calc Drug Dose 39.1 ml/min Estimated GFR () 47.4 Estimated GFR (Non- 40.9 BUN/Creatinine Ratio 17.7 10-20 Random Glucose 104 70-99 mg/dl Calcium Level 8.9 8.5-10.1 mg/dl Magnesium Level 1.8 1.8-2.4 mg/dl
--- NOTE | 2017-03-29 14:45 | Discharge Instructions ---
Discharge Instructions Date of Service Mar 29, 2017. Admission Reason for Admission: Influenza, Tachycardia Discharge Discharge Diagnosis / Problem: Influenza, Afib RVR Discharge Goals Goal(s): Decrease discomfort, Improve function Activity Recommendations Activity Limitations: resume your previous activity Exercise/Sports Limitations: as tolerated . Instructions / Follow-Up Instructions / Follow-Up Follow up with your Primary Care Physician in 1 week after being discharged from SNF Follow up with wound clinic ( and ) in 1 week as advised Complete the antibiotic course (Doxycycline and Levaquin) per recommendations from ID for (5 more days) Get PT/INR checked daily at SNF Follow up with physician at SNF for further Coumadin dosage based on your INR No Coumadin today (As INR: 3.7 today) Current Hospital Diet Patient's current hospital diet: AHA Diet (Heart Healthy) Discharge Diet Recommended Diet: AHA Diet (Heart Healthy) Pending Studies Studies pending at discharge: no Medical Emergencies . Who to Call and When: Medical Emergencies: If at any time you feel your situation is an emergency, please call 911 immediately. . Non-Emergent Contact Non-Emergency issues call your: Primary Care Provider, Specialist (Jennifer PATEL ) Call Non-Emergent contact if: you have a fever, your pain is not controlled, your pain is worsening, your pain is unusual for you, your pain is concerning you, you have any medication questions . . "Provider Documentation" section prepared by Chuck Hylton. . VTE Core Measure Inpt VTE Proph given/why not?: Warfarin (Coumadin)
[2017-03-29 14:46] VITALS: BP 137/82; PULSE 91; TEMP 37.1; O2SAT 94
--- NOTE | 2017-03-29 14:46 | Discharge Summary ---
Discharge Summary Date of Service Mar 29, 2017. Discharge Summary Admission Date: Mar 24, 2017 at 13:48 Discharge Date: Mar 29, 2017 Discharge Disposition: snf facility Principal Diagnosis: None Admission Information Physical Exam (per Admitting): General Appearance: WD/WN, no apparent distress Head: normocephalic, atraumatic Eyes: PERRL, EOMI, sclerae normal (conjunctivae clear) ENT: hearing grossly normal, + nasal congestion, + nasal drainage Neck: supple, no JVD, trachea midline Respiratory/Chest: chest non-tender, no respiratory distress, no accessory muscle use, + wheezing Cardiovascular: no gallop, no JVD, no murmur, + irregularly irregular Abdomen/GI: normal bowel sounds, non tender, soft, no organomegaly Back: no CVA tenderness, no muscle spasm Extremities/Musculoskelatal: normal capillary refill, + calf tenderness, + pertinent finding (stasis skin changes to bilateral LE) Neurologic/Psych: no motor/sensory deficits, alert, normal mood/affect, oriented x 3 Skin: normal color, warm/dry, no rash Hospital Course None Discharge Instructions None
--- NOTE | 2017-03-29 19:20 | Discharge Summary ---
Discharge Summary Date of Service Mar 29, 2017. Discharge Summary Admission Date: Mar 24, 2017 at 13:48 Discharge Date: Mar 29, 2017 Discharge Disposition: [facility] facility Principal Diagnosis: Influenza, Afib RVR Procedures: CXR: 1. Interstitial thickening which favors mild pulmonary edema. 2. Moderate cardiomegaly. 3. Hiatal hernia. Consultations: Orthopedics Pending Studies/Follow-Up: Follow up with your Primary Care Physician in 1 week after being discharged from SNF Follow up with wound clinic ( and ) in 1 week as advised Complete the antibiotic course (Doxycycline and Levaquin) per recommendations from ID for (5 more days) Get PT/INR checked daily at SNF Follow up with physician at SNF for further Coumadin dosage based on your INR No Coumadin today (As INR: 3.7 today) Medication Reconciliation Continued Medications: Bilberry (Vaccinium Myrtillus) (Bilberry) Unknown Strength Cap 1 CAP PO DAILY Cholecalciferol (D3-1000) 1,000 Unit Tab 1000 INTUNIT PO DAILY Doxycycline Monohydrate (Monodox) 100 Mg Cap 100 MG PO BID STARTED 03/09/17 Ergocalciferol (Vitamin D 17499 Unit) 50,000 Unit Cap 64487 UNIT PO MONTHLY, CAP Ferrous Sulfate (Kp Ferrous Sulfate) 325 Mg Tab 325 MG PO DAILY for 30 Days, #30 TAB 3 Refills Furosemide (Lasix) 40 Mg Tab 40 MG PO UD, TAB PT STATES SHE'S SUPPOSED TO TAKE EVERYDAY, BUT "TAKES A BREAK" EVERY FEW DAYS. CURRENTLY ON HOLD OF 03/24 Levofloxacin (Levaquin) 500 Mg Tab 500 MG PO DAILY Lisinopril (Zestril) 10 Mg Tab 10 MG PO DAILY, 5 Refills Lutein (Lutein) Unknown Strength Cap 1 CAP PO DAILY Magnesium Oxide (Mag-Ox) 400 Mg Tab 400 MG PO QD, TAB Metoprolol Succinate (Toprol Xl) 50 Mg Tabcr 50 MG PO DAILY, TAB Nitroglycerin (Nitrostat) 0.4 Mg Tab 0.4 MG UT UD Nystatin (Topical) (Nystop) 100,000 Unit/Gm Pow 1 APPLN TD TID Potassium Chloride Microencaps (Potassium Chloride Cr) 20 Meq Tab 40 MEQ PO DAILY Takes witH LASIX NORMALLY, DR INSTRUCTED HER TO DOUBLE POTASSIUM FOR A FEW DAYS OF 03/24 Ranitidine Hcl (Zantac) 150 Mg Tab 150 MG PO DAILY for 90 Days, #90 TAB 3 Refills Warfarin Sod (Jantoven) 5 Mg Tab 5 MG PO 3XWK, TAB SUNDAY, SUNDAY, SUNDAY Warfarin Sod (Jantoven) 5 Mg Tab 2.5 MG PO 4XWK, TAB SUNDAY, SUNDAY, SUNDAY, SUNDAY Admission Information HPI (per Admitting provider): Patient is an 87 yo female who presented to the ER from home for complaints of worsening "cold-like" symptoms including nasal congestion/rhinorrhea, cough, and chills. She states her symptoms began on and progressively worsened since then until finally her wound care nurse saw her and encouraged her to come to the ER. The patient was just discharged home from the hospital on Sunday, when she was treated for LLE cellulitis and wounds, and has been taking antibiotics. She feels as though her SOB is at her usual baseline, but reports it was worse yesterday due to the infection. She reports last week having multiple episodes of diarrhea which stopped on Sunday, but then began again today. The patient also states that she vomited recently after eating, but this is not uncommon secondary to her hiatal hernia. She also reports feeling shaky and jittery but denies any fevers or myalgias. She states she may have had a headache yesterday but it has subsided. Cough is non productive. Denies any chest pain. Denies any sore throat or ear pain. Physical Exam (per Admitting): General Appearance: WD/WN, no apparent distress Head: normocephalic, atraumatic Eyes: PERRL, EOMI, sclerae normal (conjunctivae clear) ENT: hearing grossly normal, + nasal congestion, + nasal drainage Neck: supple, no JVD, trachea midline Respiratory/Chest: chest non-tender, no respiratory distress, no accessory muscle use, + wheezing Cardiovascular: no gallop, no JVD, no murmur, + irregularly irregular Abdomen/GI: normal bowel sounds, non tender, soft, no organomegaly Back: no CVA tenderness, no muscle spasm Extremities/Musculoskelatal: normal capillary refill, + calf tenderness, + pertinent finding (stasis skin changes to bilateral LE) Neurologic/Psych: no motor/sensory deficits, alert, normal mood/affect, oriented x 3 Skin: normal color, warm/dry, no rash Hospital Course Influenza: Completed Tamiflu day # 5/5 CXR: no signs of consolidation AFib RVR: Rate controlled continued metoprolol Hold Coumadin today Monitor INR:3.7 today Recent LLE Wound/Cellulitis: has known underlying venous stasis and lymphedema of B/L LE wound cultures grew MSSA and Pseudomonas aeruginosa Continue doxycycline and levofloxacin per ID last hospitalization: # Needs 5 more days of PO antibiotics Continue wound Care Needs Wound Care follow up as outpatient Chronic Diastolic CHF: Appears euvolemic Continue PO lasix monitor electrolytes HTN: stable continue lisinopril, metoprolol monitor Diarrhea: stool for c.diff: negative continue probiotics Severe Arthritis B/L Knees: Appreciate Ortho Input Pain control PT/OT GERD/Hiatal Hernia: continue ranitidine Hypokalemia/Hypomagnesemia: Hypokalemia resolved replace and monitor DVT Px; Coumadin on Hold INR supra therapeutic Code Status: Full Code Disposition: Plan to discharge to SNF today Follow up with your Primary Care Physician in 1 week after being discharged from [facility] Follow up with wound clinic ( and ) in 1 week as advised Complete the antibiotic course as per recommendations from ID (5 more days) Get PT/INR checked daily at SNF Follow up with physician at SNF for further Coumadin dosage based on your INR No Coumadin today Total time spent on discharge = 38 minutes This includes examination of the patient, discharge planning, medication reconciliation, and communication with other providers. Discharge Instructions Discharge Instructions Date of Service Mar 29, 2017. Admission Reason for Admission: Influenza, Tachycardia Discharge Discharge Diagnosis / Problem: Influenza, Afib RVR Discharge Goals Goal(s): Decrease discomfort, Improve function Activity Recommendations Activity Limitations: resume your previous activity Exercise/Sports Limitations: as tolerated . Instructions / Follow-Up Instructions / Follow-Up Follow up with your Primary Care Physician in 1 week after being discharged from [facility] Follow up with wound clinic ( and ) in 1 week as advised Complete the antibiotic course (Doxycycline and Levaquin) per recommendations from ID for (5 more days) Get PT/INR checked daily at SNF Follow up with physician at SNF for further Coumadin dosage based on your INR No Coumadin today (As INR: 3.7 today) Current Hospital Diet Patient's current hospital diet: AHA Diet (Heart Healthy) Discharge Diet Recommended Diet: AHA Diet (Heart Healthy) Pending Studies Studies pending at discharge: no Medical Emergencies . Who to Call and When: Medical Emergencies: If at any time you feel your situation is an emergency, please call 911 immediately. . Non-Emergent Contact Non-Emergency issues call your: Primary Care Provider, Specialist (Jennifer PATEL ) Call Non-Emergent contact if: you have a fever, your pain is not controlled, your pain is worsening, your pain is unusual for you, your pain is concerning you, you have any medication questions . . "Provider Documentation" section prepared by Chuck Hylton. . VTE Core Measure Inpt VTE Proph given/why not?: Warfarin (Coumadin) <Electronically signed by Chuck Hylton MD> Signed: 03/29/17 1445 Signed: The status of this report is Signed * If report status is Draft, the document has not been finalized by the responsible provider.
== END 2017-03-29 15:05 | DRG 153 ==
LOC: EDBD 10:52 → C.EDC 10:53 → C.2T 13:48 → UNDOADMIN 13:48 → ENRESERV 13:57 → C.MS2W 03-27 15:57
PROVIDERS: ADMIT Internal Medicine; ATTEND Internal Medicine
DX: J11.1 Influenza due to unidentified influenza virus with other respiratory manifestations (principal); I50.32 Chronic diastolic (congestive) heart failure; L03.116 Cellulitis of left lower limb; I11.0 Hypertensive heart disease with heart failure; I48.91 Unspecified atrial fibrillation; K21.9 Gastro-esophageal reflux disease without esophagitis; Z79.01 Long term (current) use of anticoagulants; E55.9 Vitamin D deficiency, unspecified; M17.0 Bilateral primary osteoarthritis of knee; Z86.718 Personal history of other venous thrombosis and embolism; I87.8 Other specified disorders of veins; E87.6 Hypokalemia; B95.61 Methicillin susceptible Staphylococcus aureus infection as the cause of diseases classified elsewhere; B96.5 Pseudomonas (aeruginosa) (mallei) (pseudomallei) as the cause of diseases classified elsewhere; E83.42 Hypomagnesemia; Z96.0 Presence of urogenital implants; R05 Cough; R09.81 Nasal congestion